=== PATIENT | male | born 1930 | race Caucasian/White ===

== ENCOUNTER 2016-05-28 17:24 | Emergency (ER) | payer MEDICARE, BC ==
[2016-05-28 17:38] VITALS: BP 166/91
--- NOTE | 2016-05-28 18:07 | EDM.PDOC ---
ED HPI GENERAL MEDICAL PROBLEM - General Chief Complaint: Neuro Symptoms/Deficits Stated Complaint: FELL Time Seen by Provider: 05/28/16 17:50 Source of Information: Reports: Patient, Family History Limitations: Reports: No limitations - History of Present Illness INITIAL COMMENTS - FREE TEXT/NARRATIVE: 85-year-old male in his usual health he states arrived home from shopping with his . She came home and a separate car and found him coming out of the bathroom tending to some facial and head injuries. He had a abrasion and hematoma on his forehead, and abrasion on his nose and bleeding from his left ear. He is unsure what happened, does not remember falling. They do have ice in front of their door which is slippery. He broke his left hearing aid. He complains of no headache, no visual disturbance, denies neck pain, chest or abdominal pain or extremity pain. He is repetitive with questioning about what happened. He is on Plavix and Motrin. Onset: today Location: Reports: head, face Severity: moderate Associated Symptoms: Reports: denies other symptoms Head Pain Score (Numeric/FACES): 2 - Related Data Allergies Allergy/AdvReac Type Severity Reaction Status Date / Time Penicillins Allergy Unknown Other Verified 05/28/16 17:38 pneumococcal 23-valent Allergy Headache Verified 05/28/16 17:38 polysacchari [From Pneumovax 23] Home Meds: Home Meds Ascorbic Acid 500 mg PO DAILY 01/22/13 [History] Clopidogrel [Plavix] 75 mg PO DAILY 01/22/13 [History] HCTZ/Triamterene [Maxzide 25-37.5 MG] 0.5 tab PO DAILY 01/22/13 [History] Metoprolol Tartrate [Lopressor] 50 mg PO BID 01/22/13 [History] Pravastatin Sodium 20 mg PO .4XWEEK 01/22/13 [History] Vitamin B Complex [B Complex] 1 each PO DAILY 01/22/13 [History] Vitamin E 400 unit PO DAILY 01/22/13 [History] metFORMIN HCl [Metformin HCl] 500 mg PO DAILY 01/22/13 [History] Pantoprazole [Protonix] 40 mg PO DAILY 01/01/14 [History] metFORMIN HCl [Metformin HCl] 750 mg PO DAILY 01/22/14 [History] predniSONE [Prednisone] 3 mg PO DAILY 01/22/14 [History] Social & Family History - Tobacco Use Smoking Status *Q: Never Smoker Years of Tobacco use: 2 Used Tobacco, but Quit: Yes Month Tobacco Last Used: mar Second Hand Smoke Exposure: No - Alcohol Use Days Per Week of Alcohol Use: 0 - Recreational Drug Use Recreational Drug Use: No ED ROS GENERAL - Review of Systems Review Of Systems: See Below Constitutional: Denies: fever, chills HEENT: Reports: Nosebleed (It appears he had a small amount of epistaxis which is resolved), Other (Bleeding from the left ear with tenderness of the ear helix , significant bruising). Denies: Eye pain, Hearing loss Respiratory: Denies: shortness of breath, cough Cardiovascular: Denies: Chest pain GI/Abdominal: Denies: Abdominal pain, Nausea, Vomiting : Reports: no symptoms Musculoskeletal: Denies: neck pain Skin: Reports: bruising (Left ear), other (Abrasion on the nose and left forehead) Neurological: Reports: confusion, other (Some repetitive questioning but he is oriented) Psychiatric: Reports: No symptoms ED EXAM, GENERAL - Physical Exam Exam: See Below Exam Limited By: No limitations General Appearance: alert, no apparent distress Eye Exam: bilateral eye: EOMI Ears: other (Right ear is normal. Left ear has a fairly complete bruise involving the entire left ear with some small abrasions and lacerations near the entry of the canal. The tympanic membrane is normal. There is no significant hematoma or blood collection subcutaneously) Head: other (Moderate hematoma with overlying abrasion on the left forehead. superficial abrasion of the nose) Neck: non-tender Respiratory/Chest: no respiratory distress GI/Abdominal: soft, non tender Extremities: normal inspection Neurological: alert, oriented, memory loss recent events Psychiatric: normal affect, normal mood Course - Vital Signs Last Recorded V/S: Last Vital Signs Temp 98.2 F 05/28/16 17:31 Pulse 81 05/28/16 17:31 Resp 14 05/28/16 17:31 BP 166/91 H 05/28/16 17:31 Pulse Ox 93 L 05/28/16 17:31 - Orders/Labs/Meds Orders: Active Orders 24 hr Category Date Time Status Head wo Cont [CT] Stat Exams 05/28/16 17:57 Taken Max Facial Sinus wo Cont [CT] Stat Exams 05/28/16 17:57 Taken - Re-Assessments/Exams Free Text/Narrative Re-Assessment/Exam: 05/28/16 18:08 No foreign body was seen in the ear canal, the trauma is to the external ear. A CT of the head and facial bones without contrast was obtained. 05/28/16 19:11 CT of the head and facial bones showed no acute findings other than some edema of the left ear. Patient was put on cephalexin 500 mg 3 times daily for the helix hematoma of the left ear, and given 10 hydrocodone to use along with his ibuprofen for pain. I strongly encouraged him to continue with icing took his injuries, and he has a recheck tomorrow with his primary care. Departure - Departure Time of Disposition: 19:25 Disposition: Home, Self-Care 01 Condition: good Clinical Impression: Mild concussion Qualifiers: Encounter type: initial encounter Facial abrasion Qualifiers: Encounter type: initial encounter Qualified Code(s): S00.81XA - Abrasion of other part of head, initial encounter Hematoma of ear, left Qualifiers: Encounter type: initial encounter Qualified Code(s): S00.432A - Contusion of left ear, initial encounter Instructions: Concussion, Adult Referrals: Rudolph Garza MD [Primary Care Provider] - Forms: ED Department Discharge Care Plan Goals: Ice to sore or swollen areas will help over the next 48 hours. Take antibiotic 3 times a day to avoid infection developing in the year. Recheck tomorrow with her primary care provider as scheduled. Add hydrocodone for pain if needed, as directed. - My Orders Last 24 Hours: My Active Orders 05/28/16 17:57 Head wo Cont [CT] Stat Max Facial Sinus wo Cont [CT] Stat - Assessment/Plan Last 24 Hours: My Active Orders 05/28/16 17:57 Head wo Cont [CT] Stat Max Facial Sinus wo Cont [CT] Stat
== END 2016-05-28 19:25 | disposition home or self-care (01) ==
LOC: JP.ED 17:24
DX: S06.0X0A Concussion without loss of consciousness, initial encounter (principal); S00.432A Contusion of left ear, initial encounter; X58.XXXA Exposure to other specified factors, initial encounter
CPT/HCPCS: 70450; 70486; 99284; 99284-25

== ENCOUNTER 2017-01-15 04:03 | Inpatient (IN) | payer MEDICARE, BC ==
[2017-01-15] MEDS ORDERED: Ibuprofen 600 MG Tab PO ONE (04:39)
[2017-01-15] MEDS ORDERED: cefTRIAXone 1 GM Vial IV SCH (04:45)
[2017-01-15] MEDS ORDERED: Lactated Ringers 1,000 ML IV SCH ×2 (04:45→06:45)
[2017-01-15] MEDS ORDERED: Sodium Chloride 0.9% 10 ML Syringe FLUSH PRN (04:47)
--- NOTE | 2017-01-15 04:50 | EDM.PDOC ---
ED HPI GENERAL MEDICAL PROBLEM - General Chief Complaint: Genitourinary Problem Stated Complaint: MED[facility] Time Seen by Provider: 01/15/17 04:36 Source of Information: Reports: Patient, EMS, Family, RN Notes Reviewed History Limitations: Reports: No Limitations - History of Present Illness INITIAL COMMENTS - FREE TEXT/NARRATIVE: 86-year-old gentleman presents emergency department day via EMS services for complaint of fever, he has known history of underlying dementia diabetes mellitus type 2 over the last couple days family has noticed that he's been bit more confused started having the chills today also has been complaining of urinary frequency and dysuria. - Related Data Allergies Allergy/AdvReac Type Severity Reaction Status Date / Time Penicillins Allergy Unknown Other Verified 01/15/17 04:34 pneumococcal 23-valent Allergy Headache Verified 01/15/17 04:34 polysacchari [From Pneumovax 23] Home Meds: Home Meds Ascorbic Acid 500 mg PO DAILY 01/22/13 [History] Clopidogrel [Plavix] 75 mg PO DAILY 01/22/13 [History] HCTZ/Triamterene [Maxzide 25-37.5 MG] 0.5 tab PO DAILY 01/22/13 [History] Metoprolol Tartrate [Lopressor] 50 mg PO BID 01/22/13 [History] Pravastatin Sodium 20 mg PO .4XWEEK 01/22/13 [History] Vitamin B Complex [B Complex] 1 each PO DAILY 01/22/13 [History] Vitamin E 400 unit PO DAILY 01/22/13 [History] Pantoprazole [Protonix] 40 mg PO DAILY 01/01/14 [History] metFORMIN HCl [Metformin HCl] 500 mg PO BID 01/22/14 [History] predniSONE [Prednisone] 5 mg PO DAILY 01/22/14 [History] metFORMIN [Glucophage] 250 mg PO ACLUNCH 01/15/17 [History] Past Medical History HEENT History: Reports: Hard of Hearing, Impaired Vision Cardiovascular History: Reports: Hypertension Gastrointestinal History: Reports: GERD Genitourinary History: Reports: Renal Calculus Musculoskeletal History: Reports: Back Pain, Chronic, Other (See Below) Other Musculoskeletal History: polymyalgia rheumatica Neurological History: Reports: Other (See Below) Other Neuro History: short term memory loss Endocrine/Metabolic History: Reports: Diabetes, Type II Oncologic (Cancer) History: Reports: Other (See Below) 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 - Past Surgical History GI Surgical History: Reports: Appendectomy, Hernia Repair/Other Social & Family History - Tobacco Use Smoking Status *Q: Never Smoker Years of Tobacco use: 2 Used Tobacco, but Quit: Yes Month Tobacco Last Used: mar Second Hand Smoke Exposure: No - Alcohol Use Days Per Week of Alcohol Use: 0 - Recreational Drug Use Recreational Drug Use: No ED ROS GENERAL - Review of Systems Review Of Systems: See Below Constitutional: Reports: Fever, Chills, Weakness HEENT: Reports: No Symptoms Respiratory: Reports: No Symptoms Cardiovascular: Reports: No Symptoms GI/Abdominal: Reports: No Symptoms : Reports: Dysuria, Frequency Musculoskeletal: Reports: No Symptoms Skin: Reports: No Symptoms Neurological: Reports: No Symptoms ED EXAM, GI/ABD - Physical Exam Exam: See Below Text/Narrative:: General: Elderly gentleman, not in any distress, alert and oriented x3 HEENT: head is atraumatic normocephalic, eyes pupils equal round reactive to light, sclera clear no conjunctivitis appreciated. Ears blocked by cerumen bilaterally canals are clear. Nose no septal deviation, nares are clear, no blood present. Mouth mucosa is dry and pink no erythema or exudate noted in soft palate, tongue is midline uvula is midline, dentures in place. Neck: Supple no thyromegaly no tracheal deviation. Nodes: Cervical nodes subclavicular nodes nontender no palpable lymphadenopathy noted. Lungs: clear to auscultation bilaterally with symmetrical respirations, no adventitious noise appreciated. CV: Regular rate and rhythm S1 and S2 appreciated no murmurs rubs or gallops noted. Abdomen: Soft, nontender, no palpable masses or organomegaly appreciated, no distention no guarding bowel sounds are present, . Neuro: Cranial nerves II through XII grossly intact Skin: Warm and dry, intact Extremities: No lower extremity edema appreciated, pedal pulse is +2. Course - Vital Signs Last Recorded V/S: Last Vital Signs Temp 101.7 F H 01/15/17 05:12 Pulse 94 01/15/17 05:12 Resp 24 H 01/15/17 05:12 BP 134/70 01/15/17 05:12 Pulse Ox 92 L 01/15/17 05:12 - Orders/Labs/Meds Orders: Active Orders 24 hr Category Date Time Status Peripheral IV Care [RC] . DIRECTED Care 01/15/17 04:47 Active Vital Signs [RC] Q1H Care 01/15/17 04:36 Active Chest 1V Frontal [CR] Urgent Exams 01/15/17 04:40 Taken CULTURE BLOOD [BC] Urgent Lab 01/15/17 04:44 Received CULTURE BLOOD [BC] Urgent Lab 01/15/17 04:44 Received CULTURE URINE [RM] Stat Lab 01/15/17 05:02 Received Lactated Ringers [Ringers, Lactated] 1,000 ml Med 01/15/17 04:45 Active IV ASDIRECTED Sodium Chloride 0.9% [Normal Saline] 100 ml Med 01/15/17 05:00 Active IV ASDIRECTED Sodium Chloride 0.9% [Saline Flush] Med 01/15/17 04:47 Active 10 ml FLUSH ASDIRECTED PRN cefTRIAXone [Rocephin] Med 01/15/17 04:45 Active 2 gm IV Q24H Blood Culture x2 Reflex Set [OM.PC] Urgent Oth 01/15/17 04:36 Ordered Peripheral IV Insertion Adult [OM.PC] Urgent Oth 01/15/17 04:47 Ordered Medication Orders Ceftriaxone Sodium (Rocephin) 2 gm IV Q24H VERONICA Last Admin: 01/15/17 05:09 Dose: 2 gm Lactated Ringer's (Ringers, Lactated) 1,000 mls @ 500 mls/hr IV ASDIRECTED VERONICA Last Admin: 01/15/17 04:43 Dose: 500 mls/hr Sodium Chloride (Normal Saline) 100 mls @ 200 mls/hr IV ASDIRECTED [facility] Last Admin: 01/15/17 05:09 Dose: 200 mls/hr Sodium Chloride (Saline Flush) 10 ml FLUSH ASDIRECTED PRN PRN Reason: Keep Vein Open Last Admin: 01/15/17 05:11 Dose: 10 ml Labs: Laboratory Tests 01/15/17 01/15/17 01/15/17 Range/Units 04:10 04:44 04:44 WBC 14.0 H (4.5-11.0) K/uL RBC 4.20 L (4.30-5.90) M/uL Hgb 12.7 (12.0-15.0) g/dL Hct 38.4 L (40.0-54.0) % MCV 91 (80-98) fL MCH 30 (27-31) pg MCHC 33 (32-36) % Plt Count 160 (150-400) K/uL Neut % (Auto) 93 H (36-66) % Lymph % (Auto) 1 L (24-44) % [place] % (Auto) 6 (2-6) % Eos % (Auto) 0 L (2-4) % Baso % (Auto) 0 (0-1) % Sodium 136 L (140-148) mmol/L Potassium 3.8 (3.6-5.2) mmol/L Chloride 102 (100-108) mmol/L Carbon Dioxide 24 (21-32) mmol/L Anion Gap 13.8 (5.0-14.0) mmol/L BUN 31 H (7-18) mg/dL Creatinine 1.4 H (0.8-1.3) mg/dL Est Cr Clr Drug Dosing 34.10 mL/min Estimated GFR (MDRD) 48 L (>60) Glucose 254 H (74-106) mg/dL Lactic Acid (0.4-2.0) mmol/L Calcium 9.1 (8.5-10.1) mg/dL Phosphorus (2.5-4.9) mg/dL Magnesium (1.8-2.4) mg/dL Total Bilirubin 0.8 (0.2-1.0) mg/dL AST 22 (15-37) U/L ALT 31 (12-78) U/L Alkaline Phosphatase 46 (46-116) U/L C-Reactive Protein 7.12 H (0.0-0.3) mg/dL Total Protein 6.3 L (6.4-8.2) g/dL Albumin 3.0 L (3.4-5.0) g/dL Globulin 3.3 (2.3-3.5) g/dL Albumin/Globulin Ratio 0.9 L (1.2-2.2) Lipase (73-393) U/L Urine Color Yellow Urine Appearance Cloudy Urine pH 5.0 (4.5-8.0) Ur Specific [place] 1.015 (1.008-1.030) Urine Protein 100 H (NEGATIVE) mg/dL Urine Glucose (UA) 250 H (NEGATIVE) mg/dL Urine Ketones 15 H (NEGATIVE) mg/dL Urine Occult Blood Large (NEGATIVE) Urine Nitrite Positive H (NEGAITVE) Urine Bilirubin Negative (NEGATIVE) Urine Urobilinogen Normal (NORMAL) mg/dL Ur Leukocyte Esterase Moderate (NEGATIVE) Urine RBC 20-30 H (0-5) Urine WBC 10-20 H (0-5) Ur Epithelial Cells Not seen Amorphous Sediment Not seen Urine Bacteria Many Urine Mucus Not seen 01/15/17 01/15/17 Range/Units 04:44 04:44 WBC (4.5-11.0) K/uL RBC (4.30-5.90) M/uL Hgb (12.0-15.0) g/dL Hct (40.0-54.0) % MCV (80-98) fL MCH (27-31) pg MCHC (32-36) % Plt Count (150-400) K/uL Neut % (Auto) (36-66) % Lymph % (Auto) (24-44) % [place] % (Auto) (2-6) % Eos % (Auto) (2-4) % Baso % (Auto) (0-1) % Sodium (140-148) mmol/L Potassium (3.6-5.2) mmol/L Chloride (100-108) mmol/L Carbon Dioxide (21-32) mmol/L Anion Gap (5.0-14.0) mmol/L BUN (7-18) mg/dL Creatinine (0.8-1.3) mg/dL Est Cr Clr Drug Dosing mL/min Estimated GFR (MDRD) (>60) Glucose (74-106) mg/dL Lactic Acid 2.2 H (0.4-2.0) mmol/L Calcium (8.5-10.1) mg/dL Phosphorus 2.5 (2.5-4.9) mg/dL Magnesium 1.3 L (1.8-2.4) mg/dL Total Bilirubin (0.2-1.0) mg/dL AST (15-37) U/L ALT (12-78) U/L Alkaline Phosphatase (46-116) U/L C-Reactive Protein (0.0-0.3) mg/dL Total Protein (6.4-8.2) g/dL Albumin (3.4-5.0) g/dL Globulin (2.3-3.5) g/dL Albumin/Globulin Ratio (1.2-2.2) Lipase 135 (73-393) U/L Urine Color Urine Appearance Urine pH (4.5-8.0) Ur Specific [place] (1.008-1.030) Urine Protein (NEGATIVE) mg/dL Urine Glucose (UA) (NEGATIVE) mg/dL Urine Ketones (NEGATIVE) mg/dL Urine Occult Blood (NEGATIVE) Urine Nitrite (NEGAITVE) Urine Bilirubin (NEGATIVE) Urine Urobilinogen (NORMAL) mg/dL Ur Leukocyte Esterase (NEGATIVE) Urine RBC (0-5) Urine WBC (0-5) Ur Epithelial Cells Amorphous Sediment Urine Bacteria Urine Mucus Meds: Medications Generic Name Dose Route Start Last Admin Trade Name Freq PRN Reason Stop Dose Admin Ceftriaxone Sodium 2 gm 01/15/17 04:45 01/15/17 05:09 Rocephin IV 2 gm Q24H VERONICA Administration Lactated Ringer's 1,000 mls @ 500 mls/hr 01/15/17 04:45 01/15/17 04:43 Ringers, Lactated IV 500 mls/hr ASDIRECTED VERONICA Administration Sodium Chloride 100 mls @ 200 mls/hr 01/15/17 05:00 01/15/17 05:09 Normal Saline IV 200 mls/hr ASDIRECTED VERONICA Administration Sodium Chloride 10 ml 01/15/17 04:47 01/15/17 05:11 Saline Flush FLUSH 10 ml ASDIRECTED PRN Administration Keep Vein Open Discontinued Medications Generic Name Dose Route Start Last Admin Trade Name Freq PRN Reason Stop Dose Admin Ibuprofen 600 mg 01/15/17 04:39 01/15/17 04:47 Motrin PO 01/15/17 04:40 600 mg ONETIME ONE Administration Departure - Departure Time of Disposition: 06:06 Disposition: Admitted As Inpatient 64 Condition: Fair Clinical Impression: Sepsis due to urinary tract infection - Discharge Information Referrals: PCP,None [Primary Care Provider] - Forms: ED Department Discharge - My Orders Last 24 Hours: My Active Orders 01/15/17 04:36 Vital Signs [RC] Q1H Blood Culture x2 Reflex Set [OM.PC] Urgent 01/15/17 04:40 Chest 1V Frontal [CR] Urgent 01/15/17 04:44 CULTURE BLOOD [BC] Urgent CULTURE BLOOD [BC] Urgent 01/15/17 04:45 Lactated Ringers [Ringers, Lactated] 1,000 ml IV ASDIRECTED cefTRIAXone [Rocephin] 2 gm IV Q24H 01/15/17 04:47 Peripheral IV Care [RC] . DIRECTED Sodium Chloride 0.9% [Saline Flush] 10 ml FLUSH ASDIRECTED PRN Peripheral IV Insertion Adult [OM.PC] Urgent 01/15/17 05:00 Sodium Chloride 0.9% [Normal Saline] 100 ml IV ASDIRECTED 01/15/17 05:02 CULTURE URINE [RM] Stat - Assessment/Plan Last 24 Hours: My Active Orders 01/15/17 04:36 Vital Signs [RC] Q1H Blood Culture x2 Reflex Set [OM.PC] Urgent 01/15/17 04:40 Chest 1V Frontal [CR] Urgent 01/15/17 04:44 CULTURE BLOOD [BC] Urgent CULTURE BLOOD [BC] Urgent 01/15/17 04:45 Lactated Ringers [Ringers, Lactated] 1,000 ml IV ASDIRECTED cefTRIAXone [Rocephin] 2 gm IV Q24H 01/15/17 04:47 Peripheral IV Care [RC] . DIRECTED Sodium Chloride 0.9% [Saline Flush] 10 ml FLUSH ASDIRECTED PRN Peripheral IV Insertion Adult [OM.PC] Urgent 01/15/17 05:00 Sodium Chloride 0.9% [Normal Saline] 100 ml IV ASDIRECTED 01/15/17 05:02 CULTURE URINE [RM] Stat Plan: Assessment Acuity = acute Site and laterality = sepsis secondary to urinary source complicated patient with known history of diabetes mellitus type 2, new onset dementia and hypertension Etiology = probable bacterial cause Manifestations = fever, hypoxic, Location of injury = Home Lab values = WBC elevated at 14.0 consistent leukocytosis creatinine elevated 1.4 consistent with acute renal failure stage GIII a lactic acid elevated at 2.2 consistent lactic acidosis magnesium low at 1.3 consistent hypomagnesemia glucose elevated at 254 consistent with hyperglycemia CRP elevated 7.12 albumin low at 3.0 consistent hypoalbuminemia urinalysis reveals 100 of protein consistent proteinuria glucose at 250 consistent glucose urea ketones at 15 consistent ketonuria positive for nitrates WBC 20-30 consistent with hematuria WBCs 10-20 consistent with pyuria cultures pending, chest x-ray shows no acute process I did review films myself I cannot appreciate any acute process, the official read from radiology is pending, EKG done by EMS services in route shows a left bundle branch block with sinus rhythm similar to prior EKGs from this year, blood cultures are pending Plan Discussed the case with hospitalist continuous miner operator he agreed to come and evaluate the patient in the emergency department for admission . This note was dictated using Wattpad voice recognition software please call with any questions.
[2017-01-15] MEDS ORDERED: Sodium Chloride 0.9% 100 ML IV SCH (05:00)
--- NOTE | 2017-01-15 07:48 | PCM.HP ---
H&P History of Present Illness - General Date of Service: 01/15/17 Admit Problem/Dx: Admission Diagnosis/Problem Admission Diagnosis/Problem Acute cystitis Source of Information: Family. No: Patient History Limitations: Reports: Altered Mental Status - History of Present Illness Initial Comments - Free Text/Narative: Dann presented to the emergency room with rigors and weakness. He is unable to provide any history at this time due to obtundation and history is gathered from his and from emergency room personnel. She reports a 2 to three-day history of slowly progressive weakness and decreased appetite. He seemed a little more confused than usual and had episodes of incontinence at night. Last night she noted that he was shaking violently and was concerned he may be having a seizure. An ambulance was summoned and he was brought for evaluation in the emergency room. Workup in the emergency room has revealed evidence for a urinary tract infection as well as sepsis syndrome. He has received antibiotics and a 30 mL/kg fluid bolus. Cultures have been collected and he will be admitted for further management. - Related Data Allergies/Adverse Reactions: Allergies Allergy/AdvReac Type Severity Reaction Status Date / Time Penicillins Allergy Unknown Other Verified 01/15/17 04:34 pneumococcal 23-valent Allergy Headache Verified 01/15/17 04:34 polysacchari [From Pneumovax 23] Home Medications: Home Meds Ascorbic Acid 500 mg PO DAILY 01/22/13 [History] Clopidogrel [Plavix] 75 mg PO DAILY 01/22/13 [History] HCTZ/Triamterene [Maxzide 25-37.5 MG] 0.5 tab PO DAILY 01/22/13 [History] Metoprolol Tartrate [Lopressor] 50 mg PO BID 01/22/13 [History] Pravastatin Sodium 20 mg PO .4XWEEK 01/22/13 [History] Vitamin B Complex [B Complex] 1 each PO DAILY 01/22/13 [History] Vitamin E 400 unit PO DAILY 01/22/13 [History] Pantoprazole [Protonix] 40 mg PO DAILY 01/01/14 [History] metFORMIN HCl [Metformin HCl] 500 mg PO BID 01/22/14 [History] predniSONE [Prednisone] 5 mg PO DAILY 01/22/14 [History] metFORMIN [Glucophage] 250 mg PO ACLUNCH 01/15/17 [History] Past Medical History HEENT History: Reports: Hard of Hearing, Impaired Vision Cardiovascular History: Reports: Hypertension Gastrointestinal History: Reports: GERD Genitourinary History: Reports: Renal Calculus Musculoskeletal History: Reports: Back Pain, Chronic, Other (See Below) Other Musculoskeletal History: polymyalgia rheumatica Neurological History: Reports: Other (See Below) Other Neuro History: short term memory loss Endocrine/Metabolic History: Reports: Diabetes, Type II Oncologic (Cancer) History: Reports: Other (See Below) 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 - Past Surgical History GI Surgical History: Reports: Appendectomy, Hernia Repair/Other Social & Family History - Family History Family Medical History: Unobtainable (Patient obtunded) - Tobacco Use Smoking Status *Q: Never Smoker Years of Tobacco use: 2 Used Tobacco, but Quit: Yes Month Tobacco Last Used: mar Second Hand Smoke Exposure: No - Alcohol Use Days Per Week of Alcohol Use: 0 - Recreational Drug Use Recreational Drug Use: No H&P Review of Systems - Review of Systems: Review Of Systems: Unable To Obtain (Patient is obtunded) Exam - Exam Exam: See Below - Vital Signs Vital Signs: Last Vital Signs Temp 36.8 C 01/15/17 06:00 Pulse 93 01/15/17 06:00 Resp 20 01/15/17 06:00 BP 133/60 01/15/17 06:00 Pulse Ox 95 01/15/17 06:00 Weight: 73.482 kg - Exam Quality Assessment: Supplemental Oxygen General: Obtunded. No: Alert, Cooperative, Mild Distress HEENT: Conjunctiva Clear. No: Mucosa Moist & [place] (dry), Scleral Icterus Neck: Supple, Trachea Midline. No: Lymphadenopathy Lungs: Clear to Auscultation, Normal Respiratory Effort Cardiovascular: Regular Rhythm, Tachycardia. No: Systolic Murmur GI/Abdominal Exam: Normal Bowel Sounds, Soft, Non-Tender, No Distention Extremities: No Pedal Edema. No: Increased Warmth Peripheral Pulses: 2+: Dorsalis Pedis (L), Dorsalis Pedis (R) Skin: Warm, Dry. No: Rash Neuro Extensive - Mental Status: Slow Response to Commands. No: Alert, Oriented x3 Neuro Extensive - Motor, Sensory, Reflexes: No: Dysarthria, Abnormal Motor, Tremor Psychiatric: No: Alert, Agitated - Patient Data Lab Results Last 24 hrs: Laboratory Results - last 24 hr 01/15/17 01/15/17 01/15/17 Range/Units 04:10 04:44 04:44 WBC 14.0 H (4.5-11.0) K/uL RBC 4.20 L (4.30-5.90) M/uL Hgb 12.7 (12.0-15.0) g/dL Hct 38.4 L (40.0-54.0) % MCV 91 (80-98) fL MCH 30 (27-31) pg MCHC 33 (32-36) % Plt Count 160 (150-400) K/uL Neut % (Auto) 93 H (36-66) % Lymph % (Auto) 1 L (24-44) % Josephine % (Auto) 6 (2-6) % Eos % (Auto) 0 L (2-4) % Baso % (Auto) 0 (0-1) % Sodium 136 L (140-148) mmol/L Potassium 3.8 (3.6-5.2) mmol/L Chloride 102 (100-108) mmol/L Carbon Dioxide 24 (21-32) mmol/L Anion Gap 13.8 (5.0-14.0) mmol/L BUN 31 H (7-18) mg/dL Creatinine 1.4 H (0.8-1.3) mg/dL Est Cr Clr Drug Dosing 34.10 mL/min Estimated GFR (MDRD) 48 L (>60) Glucose 254 H (74-106) mg/dL Lactic Acid (0.4-2.0) mmol/L Calcium 9.1 (8.5-10.1) mg/dL Phosphorus (2.5-4.9) mg/dL Magnesium (1.8-2.4) mg/dL Total Bilirubin 0.8 (0.2-1.0) mg/dL AST 22 (15-37) U/L ALT 31 (12-78) U/L Alkaline Phosphatase 46 (46-116) U/L C-Reactive Protein 7.12 H (0.0-0.3) mg/dL Total Protein 6.3 L (6.4-8.2) g/dL Albumin 3.0 L (3.4-5.0) g/dL Globulin 3.3 (2.3-3.5) g/dL Albumin/Globulin Ratio 0.9 L (1.2-2.2) Lipase (73-393) U/L Urine Color Yellow Urine Appearance Cloudy Urine pH 5.0 (4.5-8.0) Ur Specific [place] 1.015 (1.008-1.030) Urine Protein 100 H (NEGATIVE) mg/dL Urine Glucose (UA) 250 H (NEGATIVE) mg/dL Urine Ketones 15 H (NEGATIVE) mg/dL Urine Occult Blood Large (NEGATIVE) Urine Nitrite Positive H (NEGAITVE) Urine Bilirubin Negative (NEGATIVE) Urine Urobilinogen Normal (NORMAL) mg/dL Ur Leukocyte Esterase Moderate (NEGATIVE) Urine RBC 20-30 H (0-5) Urine WBC 10-20 H (0-5) Ur Epithelial Cells Not seen Amorphous Sediment Not seen Urine Bacteria Many Urine Mucus Not seen 01/15/17 01/15/17 Range/Units 04:44 04:44 WBC (4.5-11.0) K/uL RBC (4.30-5.90) M/uL Hgb (12.0-15.0) g/dL Hct (40.0-54.0) % MCV (80-98) fL MCH (27-31) pg MCHC (32-36) % Plt Count (150-400) K/uL Neut % (Auto) (36-66) % Lymph % (Auto) (24-44) % Josephine % (Auto) (2-6) % Eos % (Auto) (2-4) % Baso % (Auto) (0-1) % Sodium (140-148) mmol/L Potassium (3.6-5.2) mmol/L Chloride (100-108) mmol/L Carbon Dioxide (21-32) mmol/L Anion Gap (5.0-14.0) mmol/L BUN (7-18) mg/dL Creatinine (0.8-1.3) mg/dL Est Cr Clr Drug Dosing mL/min Estimated GFR (MDRD) (>60) Glucose (74-106) mg/dL Lactic Acid 2.2 H (0.4-2.0) mmol/L Calcium (8.5-10.1) mg/dL Phosphorus 2.5 (2.5-4.9) mg/dL Magnesium 1.3 L (1.8-2.4) mg/dL Total Bilirubin (0.2-1.0) mg/dL AST (15-37) U/L ALT (12-78) U/L Alkaline Phosphatase (46-116) U/L C-Reactive Protein (0.0-0.3) mg/dL Total Protein (6.4-8.2) g/dL Albumin (3.4-5.0) g/dL Globulin (2.3-3.5) g/dL Albumin/Globulin Ratio (1.2-2.2) Lipase 135 (73-393) U/L Urine Color Urine Appearance Urine pH (4.5-8.0) Ur Specific [place] (1.008-1.030) Urine Protein (NEGATIVE) mg/dL Urine Glucose (UA) (NEGATIVE) mg/dL Urine Ketones (NEGATIVE) mg/dL Urine Occult Blood (NEGATIVE) Urine Nitrite (NEGAITVE) Urine Bilirubin (NEGATIVE) Urine Urobilinogen (NORMAL) mg/dL Ur Leukocyte Esterase (NEGATIVE) Urine RBC (0-5) Urine WBC (0-5) Ur Epithelial Cells Amorphous Sediment Urine Bacteria Urine Mucus Result Diagrams: 01/15/17 04:44 01/15/17 04:44 Imaging Impressions Last 24 hrs: Chest x-ray - images personally reviewed - there is no evidence for mass, infiltrate or effusion. Heart size is normal. *Q Meaningful Use (ADM) - VTE *Q VTE Criteria *Q: - VTE Risk Assess *Q Each Risk Factor Represents 1 Point: Sepsis Total Score 1 Point Risk Factors: 1 Each Risk Factor Represents 2 Points: None Total Score 2 Point Risk Factors: 0 Each Risk Factor Represents 3 Points: Age 75 Years or Greater Total Score 3 Point Risk Factors: 3 Each Risk Factor Represents 5 Points: None Total Score 5 Point Risk Factors: 0 Venous Thromboembolism Risk Factor Score *Q: 4 - Stroke *Q Stroke Criteria *Q: - AMI *Q AMI Criteria *Q: Problem List Initiated/Reviewed/Updated: Yes Orders Last 24hrs: Active Orders 24 hr Category Date Time Status Patient Status Manage Transfer [TRANSFER] Routine ADT 01/15/17 07:40 Ordered Peripheral IV Care [RC] . DIRECTED Care 01/15/17 04:47 Active Vital Signs [RC] Q1H Care 01/15/17 04:36 Active Chest 1V Frontal [CR] Urgent Exams 01/15/17 04:40 Taken CULTURE BLOOD [BC] Urgent Lab 01/15/17 04:44 Received CULTURE BLOOD [BC] Urgent Lab 01/15/17 04:44 Received CULTURE URINE [RM] Stat Lab 01/15/17 05:02 Received Lactated Ringers [Ringers, Lactated] 1,000 ml Med 01/15/17 04:45 Active IV ASDIRECTED Lactated Ringers [Ringers, Lactated] 1,000 ml Med 01/15/17 06:45 Active IV ASDIRECTED Sodium Chloride 0.9% [Normal Saline] 100 ml Med 01/15/17 05:00 Active IV ASDIRECTED Sodium Chloride 0.9% [Saline Flush] Med 01/15/17 04:47 Active 10 ml FLUSH ASDIRECTED PRN cefTRIAXone [Rocephin] Med 01/15/17 04:45 Active 2 gm IV Q24H Blood Culture x2 Reflex Set [OM.PC] Urgent Oth 01/15/17 04:36 Ordered Peripheral IV Insertion Adult [OM.PC] Urgent Oth 01/15/17 04:47 Ordered Resuscitation Status Routine Resus Stat 01/15/17 07:41 Ordered Medication Orders Ceftriaxone Sodium (Rocephin) 2 gm IV Q24H [facility] Last Admin: 01/15/17 05:09 Dose: 2 gm Lactated Ringer's (Ringers, Lactated) 1,000 mls @ 500 mls/hr IV ASDIRECTED [facility] Last Admin: 01/15/17 04:43 Dose: 500 mls/hr Sodium Chloride (Normal Saline) 100 mls @ 200 mls/hr IV ASDIRECTED [facility] Last Admin: 01/15/17 05:09 Dose: 200 mls/hr Lactated Ringer's (Ringers, Lactated) 1,000 mls @ 500 mls/hr IV ASDIRECTED [facility] Last Admin: 01/15/17 06:45 Dose: 500 mls/hr Sodium Chloride (Saline Flush) 10 ml FLUSH ASDIRECTED PRN PRN Reason: Keep Vein Open Last Admin: 01/15/17 05:11 Dose: 10 ml Assessment/Plan Comment:: ASSESSMENT AND PLAN - Acute cystitis with sepsis syndrome - urine strongly suggestive of infection and evidence for sepsis including tachycardia, tachypnea, confusion and elevated lactic acid level. Vital signs stabilizing with treatment provided so far in the emergency room. He has received antibiotics and a fluid bolus. Cultures are pending. -Continue ceftriaxone -Continue IV fluids -Follow-up blood and urine cultures -Repeat lactic acid Stage III chronic kidney disease - mild elevation in creatinine from baseline but does not meet criteria for acute kidney injury. -Hydration as above Mild to moderate dementia - obtunded at this time secondary to infection. No behavior issues at this time. -Melatonin at bedtime -Consider low-dose Haldol if behavior issues Essential hypertension - blood pressure on the low side and only metoprolol will be continued at this time. Type 2 diabetes mellitus - on metformin as an outpatient. This will be held with mild elevation in creatinine which should be able to restart of the near future. -Low-dose sliding scale -Restart metformin in one or 2 days Maintenance issues - - DVT prophylaxis - enoxaparin - GI prophylaxis - PPI - Nutrition - regular diet - Kaur catheter - not indicated CODE STATUS - DNR/DNI Admission justification - This patient will be admitted for inpatient services and is medically appropriate meeting medical necessity for inpatient admission as outlined in my documentation. I reasonably expect the patient will require inpatient services that span a period time over 2 midnights. I reasonably expect this patient to be discharged or transferred within 96 hours after admission to the [facility]. Disposition - anticipate discharge to home versus [facility] after the hospital stay. Primary care physician - Dr. Greg Juarez M.D.
[2017-01-15] MEDS ORDERED: Acetaminophen 325 MG Tab PO PRN (08:40)
[2017-01-15] MEDS ORDERED: Albuterol 0.083% 2.5 MG/3 ML Neb Soln NEB PRN (08:40)
[2017-01-15] MEDS ORDERED: Polyethylene Glycol 3350 Powder 17 GM Packet PO PRN (08:40)
[2017-01-15] MEDS ORDERED: Ibuprofen 400 MG Tab PO PRN (08:40)
[2017-01-15] MEDS ORDERED: Ondansetron 4 MG Tab.DIS PO PRN (08:40)
[2017-01-15] MEDS: Enoxaparin 40 MG/0.4 ML Syringe SUBCUT SCH (09:27)
[2017-01-15] MEDS: Clopidogrel 75 MG Tab PO SCH (09:27)
[2017-01-15] MEDS: Metoprolol Tartrate 50 MG Tab PO SCH ×2 (09:28→21:23)
[2017-01-15] MEDS: Pantoprazole 40 MG Tab.CR PO SCH (09:28)
[2017-01-15] MEDS: predniSONE 5 MG Tab PO SCH (09:28)
--- NOTE | 2017-01-15 09:41 | CR ---
Chest 1V Frontal INDICATION: hypoxic FINDINGS: Comparison 09/18/2010. Elevation right hemidiaphragm. Stable mild cardiac enlargement. Shall ow inspiration. AP portable chest x-ray otherwise negative.
[2017-01-15] MEDS: Sodium Chloride 0.9% 1,000 ML IV SCH ×2 (11:30→21:31)
[2017-01-15] MEDS: Insulin Aspart 100 Units/ML 3 ML Pen SUBCUT SCH ×3 (12:30→21:28)
[2017-01-15] MEDS ORDERED: FLU Vacc TS 2017-18 (65yr UP)/PF 180 MCG/0.5 ML Syringe IM ONE (14:00)
[2017-01-16] MEDS: cefTRIAXone 2 GM in Sodium Chloride 0.9% 50 ML IV SCH (05:34)
[2017-01-16] MEDS: Sodium Chloride 0.9% 1,000 ML IV SCH (07:42)
[2017-01-16] MEDS: predniSONE 5 MG Tab PO SCH (07:42)
[2017-01-16] MEDS: Pantoprazole 40 MG Tab.CR PO SCH (07:42)
[2017-01-16] MEDS: Clopidogrel 75 MG Tab PO SCH (08:48)
[2017-01-16] MEDS: Enoxaparin 40 MG/0.4 ML Syringe SUBCUT SCH (08:48)
[2017-01-16] MEDS: Metoprolol Tartrate 50 MG Tab PO SCH ×2 (08:48→20:28)
[2017-01-16] MEDS: Insulin Aspart 100 Units/ML 3 ML Pen SUBCUT SCH ×2 (09:09→20:34)
[2017-01-16] MEDS: metFORMIN 500 MG Tab PO SCH ×3 (09:11→16:47)
--- NOTE | 2017-01-16 14:35 | PCM.PN ---
- General Info Date of Service: 01/16/17 Functional Status: Reports: Pain Controlled, Tolerating Diet - Review of Systems General: Reports: Weakness. Denies: Fever Neurological: Reports: Confusion Systems Review Comment:: No acute events overnight. Vital signs have been stable with heart rates normal. Patient reports chronic back pain but no other pain issues. No abdominal pain. No fevers. He is a little bit confused but otherwise seems to be doing well. Appetite has been good. Urine culture is pending. Tolerating current antibiotics. - Patient Data Vitals - Most Recent: Last Vital Signs Temp 36.6 C 01/16/17 11:07 Pulse 76 01/16/17 11:07 Resp 16 01/16/17 11:07 BP 123/73 01/16/17 11:07 Pulse Ox 95 01/16/17 11:07 Weight - Most Recent: 73.482 kg I&O - Last 24 Hours: Intake & Output 01/15/17 01/16/17 01/16/17 22:59 06:59 14:59 Intake Total 567 1772 360 Output Total 400 600 Balance 567 1372 -240 Lab Results Last 24 Hours: Laboratory Results - last 24 hr 01/16/17 01/16/17 Range/Units 05:59 05:59 WBC 12.8 H (4.5-11.0) K/uL RBC 4.02 L (4.30-5.90) M/uL Hgb 12.0 (12.0-15.0) g/dL Hct 37.4 L (40.0-54.0) % MCV 93 (80-98) fL MCH 30 (27-31) pg MCHC 32 (32-36) % Plt Count 174 (150-400) K/uL Sodium 141 (140-148) mmol/L Potassium 3.8 (3.6-5.2) mmol/L Chloride 107 (100-108) mmol/L Carbon Dioxide 27 (21-32) mmol/L Anion Gap 7.0 (5.0-14.0) mmol/L BUN 30 H (7-18) mg/dL Creatinine 1.2 (0.8-1.3) mg/dL Est Cr Clr Drug Dosing 41.32 mL/min Estimated GFR (MDRD) 57 L (>60) Glucose 145 H (74-106) mg/dL Calcium 8.5 (8.5-10.1) mg/dL Med Orders - Current: Current Medications Acetaminophen (Tylenol) 650 mg PO Q4H PRN PRN Reason: Pain (Mild 1-3)/fever Albuterol (Proventil Neb Soln) 2.5 mg NEB Q4H PRN PRN Reason: Shortness Of Breath/wheezing Clopidogrel Bisulfate (Plavix) 75 mg PO DAILY [facility] Last Admin: 01/16/17 08:48 Dose: 75 mg Enoxaparin Sodium (Lovenox) 40 mg SUBCUT DAILY [facility] Last Admin: 01/16/17 08:48 Dose: 40 mg Ceftriaxone Sodium 2 gm/ (Sodium Chloride) 50 mls @ 100 mls/hr IV Q24H [facility] Last Admin: 01/16/17 05:34 Dose: 100 mls/hr Ibuprofen (Motrin) 400 mg PO Q6H PRN PRN Reason: Pain/Fever Insulin Aspart (Novolog) 0 unit SUBCUT ASDIRECTED [facility] PRN Reason: Protocol Last Admin: 01/16/17 09:09 Dose: 1 units Metformin HCl (Glucophage) 500 mg PO BIDMEALS [facility] Last Admin: 01/16/17 09:11 Dose: 500 mg Metformin HCl (Glucophage) 250 mg PO WITHLUNCH [facility] Last Admin: 01/16/17 12:13 Dose: 250 mg Metoprolol Tartrate (Lopressor) 50 mg PO BID [facility] Last Admin: 01/16/17 08:48 Dose: 50 mg Ondansetron HCl (Zofran Odt) 4 mg PO Q6H PRN PRN Reason: Nausea able to take PO Pantoprazole Sodium (Protonix) 40 mg PO DAILY@0730 [facility] Last Admin: 01/16/17 07:42 Dose: 40 mg Polyethylene Glycol (Miralax) 17 gm PO DAILY PRN PRN Reason: Constipation Prednisone (Prednisone) 5 mg PO DAILY@0800 [facility] Last Admin: 01/16/17 07:42 Dose: 5 mg Senna/Docusate Sodium (Senna Plus) 1 tab PO BID PRN PRN Reason: Constipation Sodium Chloride (Saline Flush) 10 ml FLUSH ASDIRECTED PRN PRN Reason: Keep Vein Open Last Admin: 01/15/17 05:11 Dose: 10 ml Triamterene/HCTZ (Maxzide 25-37.5 Mg) 0.5 each PO DAILY [facility] Discontinued Medications Ceftriaxone Sodium (Rocephin) 2 gm IV Q24H [facility] Last Admin: 01/15/17 05:09 Dose: 2 gm Lactated Ringer's (Ringers, Lactated) 1,000 mls @ 500 mls/hr IV ASDIRECTED [facility] Last Admin: 01/15/17 04:43 Dose: 500 mls/hr Sodium Chloride (Normal Saline) 100 mls @ 200 mls/hr IV ASDIRECTED [facility] Last Admin: 01/15/17 05:09 Dose: 200 mls/hr Lactated Ringer's (Ringers, Lactated) 1,000 mls @ 500 mls/hr IV ASDIRECTED [facility] Last Admin: 01/15/17 06:45 Dose: 500 mls/hr Sodium Chloride (Normal Saline) 1,000 mls @ 100 mls/hr IV ASDIRECTED [facility] Last Admin: 01/16/17 07:42 Dose: 100 mls/hr Ibuprofen (Motrin) 600 mg PO ONETIME ONE Stop: 01/15/17 04:40 Last Admin: 01/15/17 04:47 Dose: 600 mg Influenza Virus Vaccine (Pharmacy To Dose - Influenza Vaccine) 1 each IM ONETIME ONE Stop: 01/15/17 13:01 Last Admin: 01/15/17 15:36 Dose: 1 each Influenza Virus Vaccine (Fluzone High-Dose ) 180 mcg IM .ONCE ONE Stop: 01/15/17 14:01 Last Admin: 01/15/17 15:34 Dose: 180 mcg - Exam Quality Assessment: Supplemental Oxygen General: Alert, Cooperative, No Acute Distress. No: Oriented Neck: Supple Lungs: Clear to Auscultation, Normal Respiratory Effort Cardiovascular: Regular Rate, Regular Rhythm GI/Abdominal Exam: Soft, No Distention Extremities: No Pedal Edema. No: Increased Warmth Skin: Warm, Dry Psy/Mental Status: Alert, Normal Affect - Problem List Review Problem List Initiated/Reviewed/Updated: Yes - My Orders Last 24 Hours: My Active Orders 01/16/17 05:00 cefTRIAXone [Rocephin] 2 gm Sodium Chloride 0.9% [Normal Saline] 50 ml IV Q24H 01/16/17 07:41 PT Evaluation and Treatment [CONS] Routine 01/16/17 09:00 HCTZ/Triamterene [Maxzide 25-37.5 MG] 0.5 each PO DAILY metFORMIN [Glucophage] 500 mg PO BIDMEALS 01/16/17 12:00 metFORMIN [Glucophage] 250 mg PO WITHLUNCH 01/16/17 12:13 Convert IV to Saline Lock [OM.PC] Routine 01/16/17 16:30 GLUCOSE POC LAB TO COLLECT [POC] QIDACANDBED 01/16/17 21:00 GLUCOSE POC LAB TO COLLECT [POC] QIDACANDBED 01/17/17 05:00 BASIC METABOLIC PANEL,BMP [CHEM] Timed CBC W/O DIFF,HEMOGRAM [HEME] Timed (1) 01/17/17 07:30 GLUCOSE POC LAB TO COLLECT [POC] QIDACANDBED 01/17/17 11:30 GLUCOSE POC LAB TO COLLECT [POC] QIDACANDBED 01/17/17 16:30 GLUCOSE POC LAB TO COLLECT [POC] QIDACANDBED 01/17/17 21:00 GLUCOSE POC LAB TO COLLECT [POC] QIDACANDBED 01/18/17 07:30 GLUCOSE POC LAB TO COLLECT [POC] QIDACANDBED 01/18/17 11:30 GLUCOSE POC LAB TO COLLECT [POC] QIDACANDBED 01/18/17 16:30 GLUCOSE POC LAB TO COLLECT [POC] QIDACANDBED 01/18/17 21:00 GLUCOSE POC LAB TO COLLECT [POC] QIDACANDBED 01/19/17 07:30 GLUCOSE POC LAB TO COLLECT [POC] QIDACANDBED 01/19/17 11:30 GLUCOSE POC LAB TO COLLECT [POC] QIDACANDBED 01/19/17 16:30 GLUCOSE POC LAB TO COLLECT [POC] QIDACANDBED 01/19/17 21:00 GLUCOSE POC LAB TO COLLECT [POC] QIDACANDBED 01/20/17 07:30 GLUCOSE POC LAB TO COLLECT [POC] QIDACANDBED 01/20/17 11:30 GLUCOSE POC LAB TO COLLECT [POC] QIDACANDBED 01/20/17 16:30 GLUCOSE POC LAB TO COLLECT [POC] QIDACANDBED - Plan Plan:: ASSESSMENT AND PLAN - Acute cystitis with sepsis syndrome - sepsis has resolved. Clinically looks much better today. Urine culture is still pending. Blood cultures are negative so far. -Continue ceftriaxone -Saline lock IV -Follow-up blood and urine cultures -Repeat lactic acid Stage III chronic kidney disease - mild elevation in creatinine from baseline and level has improved since admission. -Encourage oral hydration Mild to moderate dementia - slightly confused but no behavior issues at this time. -Melatonin at bedtime -Consider low-dose Haldol if behavior issues Essential hypertension - blood pressure now rising and usual home medications will be restarted. Type 2 diabetes mellitus - on metformin as an outpatient. This will be restarted today. -Low-dose sliding scale -Restart metformin Maintenance issues - - DVT prophylaxis - enoxaparin - GI prophylaxis - PPI - Nutrition - regular diet Disposition - anticipate discharge to home after the hospital stay. Possibly tomorrow if stable overnight Roddy Juarez M.D.
[2017-01-16] MEDS: Hydrochlorothiazide/Triamterene 25-37.5 Tab PO SCH (15:40)
[2017-01-17] MEDS: cefTRIAXone 2 GM in Sodium Chloride 0.9% 50 ML IV SCH (05:01)
[2017-01-17] MEDS: Pantoprazole 40 MG Tab.CR PO SCH (07:33)
[2017-01-17] MEDS: predniSONE 5 MG Tab PO SCH (07:33)
[2017-01-17] MEDS: metFORMIN 500 MG Tab PO SCH ×3 (07:33→17:39)
[2017-01-17] MEDS: Hydrochlorothiazide/Triamterene 25-37.5 Tab PO SCH (08:49)
[2017-01-17] MEDS: Metoprolol Tartrate 50 MG Tab PO SCH ×2 (08:49→20:21)
[2017-01-17] MEDS: Enoxaparin 40 MG/0.4 ML Syringe SUBCUT SCH (08:50)
[2017-01-17] MEDS: Clopidogrel 75 MG Tab PO SCH (08:50)
[2017-01-17] MEDS ORDERED: Furosemide 40 MG/4 ML VIAL IVPUSH ONE (10:30)
[2017-01-17] MEDS: Insulin Aspart 100 Units/ML 3 ML Pen SUBCUT SCH ×2 (12:13→20:43)
--- NOTE | 2017-01-17 14:51 | PCM.PN ---
- General Info Date of Service: 01/17/17 Functional Status: Reports: Pain Controlled, Tolerating Diet, Ambulating - Review of Systems General: Denies: Fever Systems Review Comment:: No acute events overnight. He did require supplemental oxygen through the night and into the morning. No complaints of shortness of breath, chest pain or cough. He has not had any fever. In general he's feeling better with improving strength and appetite. Urine culture grew out Klebsiella. Mild confusion but this seems to be baseline. - Patient Data Vitals - Most Recent: Last Vital Signs Temp 37 C 01/17/17 11:30 Pulse 99 01/17/17 11:30 Resp 16 01/17/17 11:30 BP 121/68 01/17/17 11:30 Pulse Ox 94 L 01/17/17 11:30 Weight - Most Recent: 73.482 kg I&O - Last 24 Hours: Intake & Output 01/16/17 01/17/17 01/17/17 22:59 06:59 14:59 Intake Total 967 355 420 Output Total 650 1000 825 Balance 229 -441 -957 Lab Results Last 24 Hours: Laboratory Results - last 24 hr 01/17/17 01/17/17 Range/Units 04:02 04:02 WBC 10.1 (4.5-11.0) K/uL RBC 3.73 L (4.30-5.90) M/uL Hgb 11.2 L (12.0-15.0) g/dL Hct 35.0 L (40.0-54.0) % MCV 94 (80-98) fL MCH 30 (27-31) pg MCHC 32 (32-36) % Plt Count 173 (150-400) K/uL Sodium 144 (140-148) mmol/L Potassium 3.8 (3.6-5.2) mmol/L Chloride 107 (100-108) mmol/L Carbon Dioxide 30 (21-32) mmol/L Anion Gap 7.5 (5.0-14.0) mmol/L BUN 26 H (7-18) mg/dL Creatinine 1.2 (0.8-1.3) mg/dL Est Cr Clr Drug Dosing 41.32 mL/min Estimated GFR (MDRD) 57 L (>60) Glucose 125 H (74-106) mg/dL Calcium 8.5 (8.5-10.1) mg/dL Med Orders - Current: Current Medications Acetaminophen (Tylenol) 650 mg PO Q4H PRN PRN Reason: Pain (Mild 1-3)/fever Last Admin: 01/17/17 08:50 Dose: 650 mg Albuterol (Proventil Neb Soln) 2.5 mg NEB Q4H PRN PRN Reason: Shortness Of Breath/wheezing Clopidogrel Bisulfate (Plavix) 75 mg PO DAILY [facility] Last Admin: 01/17/17 08:50 Dose: 75 mg Enoxaparin Sodium (Lovenox) 40 mg SUBCUT DAILY [facility] Last Admin: 01/17/17 08:50 Dose: 40 mg Ceftriaxone Sodium 2 gm/ (Sodium Chloride) 50 mls @ 100 mls/hr IV Q24H [facility] Last Admin: 01/17/17 05:01 Dose: 100 mls/hr Ibuprofen (Motrin) 400 mg PO Q6H PRN PRN Reason: Pain/Fever Insulin Aspart (Novolog) 0 unit SUBCUT ASDIRECTED [facility] PRN Reason: Protocol Last Admin: 01/17/17 12:13 Dose: 2 units Metformin HCl (Glucophage) 500 mg PO BIDMEALS [facility] Last Admin: 01/17/17 07:33 Dose: 500 mg Metformin HCl (Glucophage) 250 mg PO WITHLUNCH [facility] Last Admin: 01/17/17 12:15 Dose: 250 mg Metoprolol Tartrate (Lopressor) 50 mg PO BID [facility] Last Admin: 01/17/17 08:49 Dose: 50 mg Ondansetron HCl (Zofran Odt) 4 mg PO Q6H PRN PRN Reason: Nausea able to take PO Pantoprazole Sodium (Protonix) 40 mg PO DAILY@0730 [facility] Last Admin: 01/17/17 07:33 Dose: 40 mg Polyethylene Glycol (Miralax) 17 gm PO DAILY PRN PRN Reason: Constipation Prednisone (Prednisone) 5 mg PO DAILY@0800 [facility] Last Admin: 01/17/17 07:33 Dose: 5 mg Senna/Docusate Sodium (Senna Plus) 1 tab PO BID PRN PRN Reason: Constipation Sodium Chloride (Saline Flush) 10 ml FLUSH ASDIRECTED PRN PRN Reason: Keep Vein Open Last Admin: 01/15/17 05:11 Dose: 10 ml Triamterene/HCTZ (Maxzide 25-37.5 Mg) 0.5 each PO DAILY [facility] Last Admin: 01/17/17 08:49 Dose: 0.5 each Discontinued Medications Ceftriaxone Sodium (Rocephin) 2 gm IV Q24H [facility] Last Admin: 01/15/17 05:09 Dose: 2 gm Furosemide (Lasix) 40 mg IVPUSH NOW ONE Stop: 01/17/17 10:31 Last Admin: 01/17/17 10:40 Dose: 40 mg Lactated Ringer's (Ringers, Lactated) 1,000 mls @ 500 mls/hr IV ASDIRECTED [facility] Last Admin: 01/15/17 04:43 Dose: 500 mls/hr Sodium Chloride (Normal Saline) 100 mls @ 200 mls/hr IV ASDIRECTED [facility] Last Admin: 01/15/17 05:09 Dose: 200 mls/hr Lactated Ringer's (Ringers, Lactated) 1,000 mls @ 500 mls/hr IV ASDIRECTED [facility] Last Admin: 01/15/17 06:45 Dose: 500 mls/hr Sodium Chloride (Normal Saline) 1,000 mls @ 100 mls/hr IV ASDIRECTED [facility] Last Admin: 01/16/17 07:42 Dose: 100 mls/hr Ibuprofen (Motrin) 600 mg PO ONETIME ONE Stop: 01/15/17 04:40 Last Admin: 01/15/17 04:47 Dose: 600 mg Influenza Virus Vaccine (Pharmacy To Dose - Influenza Vaccine) 1 each IM ONETIME ONE Stop: 01/15/17 13:01 Last Admin: 01/15/17 15:36 Dose: 1 each Influenza Virus Vaccine (Fluzone High-Dose 2016-) 180 mcg IM .ONCE ONE Stop: 01/15/17 14:01 Last Admin: 01/15/17 15:34 Dose: 180 mcg - Exam Quality Assessment: Supplemental Oxygen General: Alert, Oriented, Cooperative, No Acute Distress Neck: Supple Lungs: Normal Respiratory Effort, Crackles (Few at both bases) Cardiovascular: Regular Rate, Regular Rhythm, Murmurs GI/Abdominal Exam: No Distention Extremities: Pedal Edema (Mild bilateral lower extremity edema) Skin: Warm, Dry Psy/Mental Status: Alert, Normal Affect - Problem List Review Problem List Initiated/Reviewed/Updated: Yes - My Orders Last 24 Hours: My Active Orders 01/17/17 16:30 GLUCOSE POC LAB TO COLLECT [POC] QIDACANDBED 01/17/17 21:00 GLUCOSE POC LAB TO COLLECT [POC] QIDACANDBED 01/18/17 07:30 GLUCOSE POC LAB TO COLLECT [POC] QIDACANDBED 01/18/17 11:30 GLUCOSE POC LAB TO COLLECT [POC] QIDACANDBED 01/18/17 16:30 GLUCOSE POC LAB TO COLLECT [POC] QIDACANDBED 01/18/17 21:00 GLUCOSE POC LAB TO COLLECT [POC] QIDACANDBED 01/19/17 07:30 GLUCOSE POC LAB TO COLLECT [POC] QIDACANDBED 01/19/17 11:30 GLUCOSE POC LAB TO COLLECT [POC] QIDACANDBED 01/19/17 16:30 GLUCOSE POC LAB TO COLLECT [POC] QIDACANDBED 01/19/17 21:00 GLUCOSE POC LAB TO COLLECT [POC] QIDACANDBED 01/20/17 07:30 GLUCOSE POC LAB TO COLLECT [POC] QIDACANDBED 01/20/17 11:30 GLUCOSE POC LAB TO COLLECT [POC] QIDACANDBED 01/20/17 16:30 GLUCOSE POC LAB TO COLLECT [POC] QIDACANDBED - Plan Plan:: ASSESSMENT AND PLAN - Acute cystitis with sepsis syndrome - sepsis has resolved. Clinically looks much better today. Urine culture grew out Klebsiella. -Change antibiotics to cephalexin -Saline lock IV Hypoxia - mild, suspect mild volume overload with initial volume resuscitation. -Furosemide 1 -Supplement oxygen -Reassess after diuresis Stage III chronic kidney disease - creatinine back to baseline. -Encourage oral hydration Mild to moderate dementia - slightly confused but no behavior issues at this time. -Melatonin at bedtime -Consider low-dose Haldol if behavior issues Essential hypertension - blood pressure now rising and usual home medications will be restarted. Type 2 diabetes mellitus - on metformin as an outpatient. -Low-dose sliding scale -Restart metformin Maintenance issues - - DVT prophylaxis - enoxaparin - GI prophylaxis - PPI - Nutrition - regular diet Disposition - anticipate discharge to home after the hospital stay. Probably tomorrow if we can wean him off the supplemental oxygen. Roddy Juarez M.D.
[2017-01-18] MEDS: Pantoprazole 40 MG Tab.CR PO SCH (08:40)
[2017-01-18] MEDS: predniSONE 5 MG Tab PO SCH (08:43)
[2017-01-18] MEDS: Hydrochlorothiazide/Triamterene 25-37.5 Tab PO SCH (08:43)
[2017-01-18] MEDS: metFORMIN 500 MG Tab PO SCH ×2 (08:43→12:36)
[2017-01-18] MEDS: Metoprolol Tartrate 50 MG Tab PO SCH (08:44)
[2017-01-18] MEDS: Clopidogrel 75 MG Tab PO SCH (08:44)
[2017-01-18] MEDS: Enoxaparin 40 MG/0.4 ML Syringe SUBCUT SCH (08:45)
[2017-01-18] MEDS ORDERED: Cephalexin 250 MG Cap PO SCH (09:00)
[2017-01-18 11:45] VITALS: BP 131/57
--- NOTE | 2017-01-18 12:08 | PCM.DCSUM1 ---
Discharge Summary - Hospital Course Brief History: 6-year-old male with history of mild dementia and chronic back pain who presented with fever and weakness. He was admitted to the hospital for management of acute cystitis with sepsis syndrome. - Discharge Data Discharge Date: 01/18/17 Discharge Disposition: Home, Self-Care 01 Condition: Fair - Discharge Diagnosis/Problem(s) (1) Acute cystitis with positive culture SNOMED Code(s): 224649267 ICD Code: N30.00 - ACUTE CYSTITIS WITHOUT HEMATURIA Status: Acute (2) Sepsis SNOMED Code(s): 89060251 ICD Code: A41.9 - SEPSIS, UNSPECIFIED ORGANISM Status: Acute Qualifiers: Sepsis type: sepsis due to unspecified organism Qualified Code(s): A41.9 - Sepsis, unspecified organism (3) Dementia SNOMED Code(s): 56605640 ICD Code: F03.90 - UNSPECIFIED DEMENTIA WITHOUT BEHAVIORAL DISTURBANCE Status: Acute Qualifiers: Dementia type: unspecified type Dementia behavioral disturbance: without behavioral disturbance Qualified Code(s): F03.90 - Unspecified dementia without behavioral disturbance (4) Lumbar stenosis SNOMED Code(s): 54217384 ICD Code: M48.061 - SPINAL STENOSIS, LUMBAR REGION WITHOUT NEUROGENIC RAZIA Status: Chronic Qualifiers: Neurogenic claudication status: with neurogenic claudication Qualified Code (s): M48.062 - Spinal stenosis, lumbar region with neurogenic claudication (5) Type 2 diabetes mellitus SNOMED Code(s): 30037616 ICD Code: E11.9 - TYPE 2 DIABETES MELLITUS WITHOUT COMPLICATIONS Status: Chronic Qualifiers: Diabetes mellitus complication status: without complication Diabetes mellitus laborer [employer] insulin use: without half-way use Qualified Code(s): E11.9 - Type 2 diabetes mellitus without complications - Patient Summary/Data Consults: Consultations 01/16/17 07:41 PT Evaluation and Treatment [CONS] Routine Please Evaluate and Treat. PT Reason for Consult: Strengthening This query below is only for informational purposes and is not editable. Hospital Course: Dann presented to the emergency room with rigors and lethargy. Workup in the emergency room suggested acute cystitis with sepsis syndrome. He was admitted to the hospital and started on moderate spectrum antibiotics. He received fluids and cultures were obtained. Overnight following admission he showed fairly impressive improvement with improvement in his mental status. His tachycardia and borderline hypotension improved. We continued IV fluids through the next morning before they were discontinued. He had ongoing improvement in his vital signs and mental status. Strength was improving with therapy. Unfortunately on 2 days after admission he had an episode of hypoxia which was fortunately relatively mild. This did respond to a single dose of diuretics. Following diuresis we are able to wean him off the supplemental oxygen. He no longer requires this supplemental oxygen. His urine culture grew out Klebsiella and antibiotics were adjusted accordingly. I believe he is safe for discharge home and outpatient management at this time. He'll be discharged home with cephalexin and the plan to complete a few more days of antibiotic therapy. He was advised to postpone his elective back surgery scheduled for next week. Hopefully in the next couple of weeks this could be rescheduled once his infection has resolved. He can follow-up if symptoms do not continue to get better or if they get worse. - Patient Instructions Diet: Diabetic Diet Activity: As Tolerated Showering/Bathing: May Shower Notify Provider of: Fever, Increased Pain, Nausea and/or Vomiting Other/Special Instructions: 1. You were in the hospital for management of sepsis caused by a urinary tract infection. You have improved with IV fluids and antibiotics. I do recommend 9 additional doses of cephalexin 500 mg. You will take this medication twice daily with food to avoid stomach upset. Your next dose is due tonight. 2. You will be contacted by Dr. Mansfield's office regarding a new date for your back surgery. Surgery will be postponed because of the infection and risk for complications with a recent infection. 3. Please continue your usual medications as previously prescribed. 4. Seek medical attention if you develop fever greater than 101, have severe abdominal pain, persistent vomiting or severe diarrhea. - Discharge Plan Prescriptions/Med Rec: Cephalexin 500 mg PO BID #9 capsule Home Medications: Home Meds Ascorbic Acid 500 mg PO DAILY 01/22/13 [History] Clopidogrel [Plavix] 75 mg PO DAILY 01/22/13 [History] HCTZ/Triamterene [Maxzide 25-37.5 MG] 0.5 tab PO DAILY 01/22/13 [History] Metoprolol Tartrate [Lopressor] 50 mg PO BID 01/22/13 [History] Pravastatin Sodium 20 mg PO .4XWEEK 01/22/13 [History] Vitamin B Complex [B Complex] 1 each PO DAILY 01/22/13 [History] Vitamin E 400 unit PO DAILY 01/22/13 [History] Pantoprazole [ProTONIX] 40 mg PO DAILY 01/01/14 [History] metFORMIN HCl [Metformin HCl] 500 mg PO BID 01/22/14 [History] predniSONE [Prednisone] 5 mg PO DAILY 01/22/14 [History] metFORMIN [Glucophage] 250 mg PO ACLUNCH 01/15/17 [History] Cephalexin 500 mg PO BID #9 capsule 01/18/17 [Rx] Patient Handouts: Urinary Tract Infection, Adult, [id number], Cephalexin tablets or capsules Referrals: Rudolph Garza MD [Physician] - (f/u next week if symptoms do not continue to get better ) - Discharge Summary/Plan Comment DC Time >30 min.: No (25) - Patient Data Vitals - Most Recent: Last Vital Signs Temp 36.4 C 01/18/17 11:44 Pulse 62 01/18/17 11:44 Resp 18 01/18/17 11:44 BP 131/57 L 01/18/17 11:44 Pulse Ox 94 L 01/18/17 11:44 Weight - Most Recent: 73.482 kg I&O - Last 24 hours: Intake & Output 01/17/17 01/18/17 01/18/17 22:59 06:59 14:59 Intake Total 840 740 Output Total 900 725 400 Balance -60 -725 340 Med Orders - Current: Current Medications Acetaminophen (Tylenol) 650 mg PO Q4H PRN PRN Reason: Pain (Mild 1-3)/fever Last Admin: 01/17/17 08:50 Dose: 650 mg Albuterol (Proventil Neb Soln) 2.5 mg NEB Q4H PRN PRN Reason: Shortness Of Breath/wheezing Cephalexin (Keflex) 500 mg PO BID [facility] Last Admin: 01/18/17 08:43 Dose: 500 mg Clopidogrel Bisulfate (Plavix) 75 mg PO DAILY [facility] Last Admin: 01/18/17 08:44 Dose: 75 mg Enoxaparin Sodium (Lovenox) 40 mg SUBCUT DAILY [facility] Last Admin: 01/18/17 08:45 Dose: 40 mg Ibuprofen (Motrin) 400 mg PO Q6H PRN PRN Reason: Pain/Fever Insulin Aspart (Novolog) 0 unit SUBCUT ASDIRECTED [facility] PRN Reason: Protocol Last Admin: 01/17/17 20:43 Dose: 1 units Metformin HCl (Glucophage) 500 mg PO BIDMEALS [facility] Last Admin: 01/18/17 08:43 Dose: 500 mg Metformin HCl (Glucophage) 250 mg PO WITHLUNCH [facility] Last Admin: 01/17/17 12:15 Dose: 250 mg Metoprolol Tartrate (Lopressor) 50 mg PO BID [facility] Last Admin: 01/18/17 08:44 Dose: 50 mg Ondansetron HCl (Zofran Odt) 4 mg PO Q6H PRN PRN Reason: Nausea able to take PO Pantoprazole Sodium (Protonix) 40 mg PO DAILY@0730 [facility] Last Admin: 01/18/17 08:40 Dose: 40 mg Polyethylene Glycol (Miralax) 17 gm PO DAILY PRN PRN Reason: Constipation Prednisone (Prednisone) 5 mg PO DAILY@0800 [facility] Last Admin: 01/18/17 08:43 Dose: 5 mg Senna/Docusate Sodium (Senna Plus) 1 tab PO BID PRN PRN Reason: Constipation Sodium Chloride (Saline Flush) 10 ml FLUSH ASDIRECTED PRN PRN Reason: Keep Vein Open Last Admin: 01/15/17 05:11 Dose: 10 ml Triamterene/HCTZ (Maxzide 25-37.5 Mg) 0.5 each PO DAILY [facility] Last Admin: 01/18/17 08:43 Dose: 0.5 each Discontinued Medications Ceftriaxone Sodium (Rocephin) 2 gm IV Q24H [facility] Last Admin: 01/15/17 05:09 Dose: 2 gm Furosemide (Lasix) 40 mg IVPUSH NOW ONE Stop: 01/17/17 10:31 Last Admin: 01/17/17 10:40 Dose: 40 mg Lactated Ringer's (Ringers, Lactated) 1,000 mls @ 500 mls/hr IV ASDIRECTED [facility] Last Admin: 01/15/17 04:43 Dose: 500 mls/hr Sodium Chloride (Normal Saline) 100 mls @ 200 mls/hr IV ASDIRECTED [facility] Last Admin: 01/15/17 05:09 Dose: 200 mls/hr Lactated Ringer's (Ringers, Lactated) 1,000 mls @ 500 mls/hr IV ASDIRECTED [facility] Last Admin: 01/15/17 06:45 Dose: 500 mls/hr Ceftriaxone Sodium 2 gm/ (Sodium Chloride) 50 mls @ 100 mls/hr IV Q24H [facility] Last Admin: 01/17/17 05:01 Dose: 100 mls/hr Sodium Chloride (Normal Saline) 1,000 mls @ 100 mls/hr IV ASDIRECTED [facility] Last Admin: 01/16/17 07:42 Dose: 100 mls/hr Ibuprofen (Motrin) 600 mg PO ONETIME ONE Stop: 01/15/17 04:40 Last Admin: 01/15/17 04:47 Dose: 600 mg Influenza Virus Vaccine (Pharmacy To Dose - Influenza Vaccine) 1 each IM ONETIME ONE Stop: 01/15/17 13:01 Last Admin: 01/15/17 15:36 Dose: 1 each Influenza Virus Vaccine (Fluzone High-Dose ) 180 mcg IM .ONCE ONE Stop: 01/15/17 14:01 Last Admin: 01/15/17 15:34 Dose: 180 mcg - Exam Quality Assessment: Denies: Supplemental Oxygen General: Reports: Alert, Cooperative, No Acute Distress Neck: Reports: Supple Lungs: Reports: Normal Respiratory Effort GI/Abdominal Exam: No Distention Skin: Reports: Warm, Dry *Q Meaningful Use (DIS) - VTE *Q VTE Criteria *Q: - Stroke *Q Stroke Criteria *Q: - AMI *Q AMI Criteria *Q:
== END 2017-01-18 13:05 | disposition home or self-care (01) | DRG 872 ==
LOC: JP.ED 04:03 → JP.MS 07:40
PROVIDERS: ADMIT Internal Medicine; ATTEND Internal Medicine
DX: A41.9 Sepsis, unspecified organism (principal); N30.00 Acute cystitis without hematuria; B96.1 Klebsiella pneumoniae [K. pneumoniae] as the cause of diseases classified elsewhere; I12.9 Hypertensive chronic kidney disease with stage 1 through stage 4 chronic kidney disease, or unspecified chronic kidney disease; F03.90 Unspecified dementia, unspecified severity, without behavioral disturbance, psychotic disturbance, mood disturbance, and anxiety; N18.3 Chronic kidney disease, stage 3 (moderate); Z87.891 Personal history of nicotine dependence; R53.1 Weakness; R50.9 Fever, unspecified; R35.0 Frequency of micturition; Z79.84 Long term (current) use of oral hypoglycemic drugs; Z66 Do not resuscitate; E11.22 Type 2 diabetes mellitus with diabetic chronic kidney disease; Z23 Encounter for immunization; R09.02 Hypoxemia; M48.062 Spinal stenosis, lumbar region with neurogenic claudication; Z85.819 Personal history of malignant neoplasm of unspecified site of lip, oral cavity, and pharynx; M54.9 Dorsalgia, unspecified; G89.29 Other chronic pain; H91.90 Unspecified hearing loss, unspecified ear; H54.7 Unspecified visual loss; Z79.52 Long term (current) use of systemic steroids; Z88.0 Allergy status to penicillin; Z88.7 Allergy status to serum and vaccine
CPT/HCPCS: 36415; 71010 ×2; 80053; 81001; 82962; 83605; 83690; 83735; 84100; 85025; 86140; 87040 ×2; 87086; 87088; 87186; 96360; 96361; 99285; A9270; J0696; J7030; J7050; J7120 ×2; 80048; 85027; 90662; 97162-GP; 97530-GP; G0008; J1650; J1940; J7040

== ENCOUNTER 2017-01-22 07:30 | Inpatient (IN) | payer MEDICARE, BC ==
[2017-02-06] MEDS: Lactated Ringers 1,000 ML IV SCH ×2 (06:10→14:21)
[2017-02-06] MEDS ORDERED: Scopolamine 1.5 MG Transdermal Patch TOP SCH (06:15)
[2017-02-06] MEDS ORDERED: Gabapentin 300 MG Cap PO ONE (06:15)
[2017-02-06] MEDS ORDERED: Thrombin (Bovine) 5,000 Unit Kit ONE (06:52)
[2017-02-06] MEDS ORDERED: Povidone-Iodine 10% Soln 118.25 ML Bottle ONE (06:52)
[2017-02-06] MEDS: Tranexamic Acid 730 MG in Sodium Chloride 0.9% 50 ML IV SCH ×2 (07:14→10:15)
[2017-02-06] MEDS ORDERED: fentaNYL 250 MCG/5 ML SDV ONE (07:19)
[2017-02-06] MEDS ORDERED: Ondansetron 4 MG/2 ML SDV ONE (07:19)
[2017-02-06] MEDS ORDERED: Propofol 200 MG/20 ML SDV ONE ×2 (07:19→07:48)
[2017-02-06] MEDS ORDERED: Rocuronium 50 MG/5 ML Vial ONE (07:19)
[2017-02-06] MEDS ORDERED: Dexamethasone 4 MG/ML SDV ONE (07:19)
[2017-02-06] MEDS ORDERED: Clindamycin Phosphate 900 MG in Sodium Chloride 0.9% 100 ML IV ONE (07:30)
[2017-02-06] MEDS ORDERED: Ropivacaine 49.25 ML, Ketorolac 30 MG, EPINEPHrine 0.5 MG, cloNIDine 80 MCG, Sodium Chl... INJECT ONE ×5 (07:30)
[2017-02-06] MEDS ORDERED: Ketamine 500 MG/5 ML MDV IV ONE (07:30)
[2017-02-06] MEDS ORDERED: ePHEDrine 50 MG/ML SDV ONE (07:45)
[2017-02-06] MEDS ORDERED: Gelatin Sponge,Absorbable Pwd 1 GM Pkt ONE (08:00)
[2017-02-06] MEDS ORDERED: Lactated Ringers 1,000 ML ONE (08:26)
[2017-02-06] MEDS ORDERED: Ketorolac 60 MG/2 ML SDV ONE (09:30)
[2017-02-06] MEDS ORDERED: Bupivacaine 0.5%/EPINEPHrine 1:200,000 50 ML MDV ONE (09:32)
[2017-02-06] MEDS ORDERED: Aluminum Hydroxide/Magnesium Hydroxide/Simethicone Susp 30 ML Cup PO PRN (10:00)
[2017-02-06] MEDS ORDERED: Diazepam 5 MG Tab PO PRN (10:00)
[2017-02-06] MEDS ORDERED: Zolpidem 5 MG Tab PO PRN (10:00)
[2017-02-06] MEDS ORDERED: Naloxone 0.4 MG/ML SDV IVPUSH PRN (10:00)
[2017-02-06] MEDS ORDERED: HYDROmorphone 1 MG/ML Syringe IVPUSH PRN (10:00)
[2017-02-06] MEDS ORDERED: Ondansetron 4 MG/2 ML SDV IVPUSH PRN (10:00)
[2017-02-06] MEDS ORDERED: Acetaminophen 1,000 MG in Premix Bag 1 BAG IV ONE (10:30)
[2017-02-06] MEDS: oxyCODONE 5 MG Tab PO PRN ×2 (13:16→16:59)
[2017-02-06] MEDS: VERIFY SCOPOLAMINE PATCH TOP SCH (13:17)
--- NOTE | 2017-02-06 14:31 | OR ---
DATE OF PROCEDURE: 02/06/2017 PREOPERATIVE DIAGNOSES: 1. L4-5 spondylolisthesis. 2. L4-5 stenosis. 3. L5-S1 stenosis. POSTOPERATIVE DIAGNOSES: 1. L4-5 spondylolisthesis. 2. L4-5 stenosis. 3. L5-S1 stenosis. PROCEDURES PERFORMED: 1. Posterolateral fusion at L4-L5. 2. Posterolateral fusion at L5-S1. 3. Segmental instrumentation at L4-5 and L5-S1. 4. Use of intraoperative fluoroscopy. 5. Use of autograft to take from laminectomy and posterolateral fusion. FELLMONGERING MACHINE OPERATOR: PRAVEEN Felix. Physician visitor information assistant, PRAVEEN Felix, played an essential role in assisting in this case, helping to position the patient, retract structures as needed, as well as suturing and cutting sutures as indicated. Her presence improved patient's safety and decreased operative time. ANESTHESIA: General endotracheal intubation. FLUID: Lactated Ringer solution. ESTIMATED BLOOD LOSS: 200 mL. COMPLICATIONS: None. SPECIMEN: None. DISCHARGE DISPOSITION: Stable to PACU. HISTORY AND INDICATION FOR THE PROCEDURE: The patient was seen in the clinic. He had failed nonoperative treatment. Preoperative imaging confirmed the above-mentioned diagnosis. Risks and benefits of the procedure were explained to the patient and informed consent was obtained. DESCRIPTION OF PROCEDURE: The patient was seen preoperatively by myself and the Anesthesia staff in the preoperative holding area, where the operative site was marked. He was brought to the operative suite by the Anesthesia staff, where general anesthesia was administered. Neuromonitoring leads were placed and normal throughout the procedure. A sterile Kaur catheter was placed. He was then placed into a prone position on a [place] table. All extremities were found to be well padded. The bed was then flexed. The patient was then prepped and draped in a sterile manner. Time-out was called identifying the correct patient, the correct procedure, the correct site, and that the antibiotics had been begun within the appropriate period of time. Lateral fluoroscopy was used to identify the pedicles of L4 through S1. A midline incision was made over the spinous processes of L4 through S1 and carried down to the deep fascia. Bleeding during the case was controlled with Bovie electrocautery as well as Aquamantys 5.0 unit. Cerebellars were used for initial retraction. There was a great deal of generalized oozing throughout the case. I then used Bovie electrocautery and Edmondson elevator to go down over the spinous processes of L4, L5 and S1 over the respective laminas, facets, and down to the transverse processes and sacral ala. I then inserted Versa-Trac retractor blades and then cleaned the soft tissue and identified the pars bilaterally. I then placed screws in the following manner; starting on the right side, at the midpoint of the transverse process, drilling down the facets, making an entry hole point with the drill, using the PediGuard, and then confirming placement tract with lateral fluoroscopy. Then, using a pedicle probe, followed by tap, followed by pedicle probe, followed by screw placement. 50 mm x 6.5 mm screws were used at L4, 45 mm x 6.5 mm screws were used at L5, and 40 mm x 6.5 mm screws were used at S1. Screws all tested normal at 30. We then focused on laminectomy. I removed any soft tissue, interspinous ligaments and supraspinous ligaments, and then used my laminectomies for bone. I performed a laminectomy at L4 and L5. Then, using the long ball and cottonoids, protected the dura and then removed ligamentum flavum bilaterally. Foramen were opened. After this had been accomplished, I placed some Floseal in the lateral recesses and then tamped any excess dry with a Ray-Ella. We then copiously irrigated with 3 L of Betadine infused irrigation and then placed our Tulips, 50 mm rods, set screws, and then torqued them to specification. I then decorticated the transverse processes and sacral ala bilaterally and used bone graft with Signify from [employer], which is allograft, mixed it together and placed in the lateral gutters. The bone was prepared with the [employer] bone mill. After this had been accomplished, we then applied the remainder of the Floseal on the muscle belly as well as one and a half packets of Gelfoam powder and local anesthetic, and then closed the deep fascia with #1 STRATAFIX, followed by deep subcu closure with #2 STRATAFIX, followed by subcutaneous closure with 3-0 STRATAFIX. We did irrigate another liter of Betadine infused irrigation and applied the half pack remaining of Gelfoam powder. The patient had a sterile dressing placed and was taken to the PACU in a stable condition. Layo Mansfield DO /[id number]
[2017-02-06] MEDS ORDERED: Glucose Gel 15 GM in 37.5 GM Tube PO PRN (16:06)
[2017-02-06] MEDS ORDERED: 50% Dextrose in Water 50 ML Syringe IV PRN (16:06)
--- NOTE | 2017-02-06 16:24 | PCM.CONS ---
H&P History of Present Illness - General Date of Service: 02/06/17 Admit Problem/Dx: Admission Diagnosis/Problem Admission Diagnosis/Problem Lumbar spinal fusion Source of Information: Patient, Family History Limitations: Reports: Altered Mental Status - History of Present Illness Initial Comments - Free Text/Narative: Dann is a surgical patient post-op day 0 s/p lumbar laminectomy, stable in the post-operative period. Post-op care will be provided by Dr. Mansfield. We were consulted for medical management of his diabetes, hypertension, and GERD. Patient is currently groggy from anesthesia and pain meds, on top of baseline dementia, so he is unable to provide a very detailed history. His , Gladys, is in the room to assist. Onset of Symptoms: Reports: Unknown/Unsure (long history of lower back pain) Lower Back Pain Score (Numeric/FACES): 4 - Related Data Allergies/Adverse Reactions: Allergies Allergy/AdvReac Type Severity Reaction Status Date / Time Penicillins Allergy Unknown Other Verified 02/06/17 05:50 pneumococcal 23-valent Allergy Headache Verified 02/06/17 05:50 polysacchari [From Pneumovax 23] Home Medications: Home Meds Ascorbic Acid 500 mg PO DAILY 01/22/13 [History] Clopidogrel [Plavix] 75 mg PO DAILY 01/22/13 [History] HCTZ/Triamterene [Maxzide 25-37.5 MG] 0.5 tab PO DAILY 01/22/13 [History] Metoprolol Tartrate [Lopressor] 50 mg PO BID 01/22/13 [History] Pravastatin Sodium 20 mg PO .4XWEEK 01/22/13 [History] Vitamin B Complex [B Complex] 1 each PO DAILY 01/22/13 [History] Vitamin E 400 unit PO DAILY 01/22/13 [History] Pantoprazole [ProTONIX] 40 mg PO DAILY 01/01/14 [History] metFORMIN HCl [Metformin HCl] 500 mg PO BID 01/22/14 [History] predniSONE [Prednisone] 5 mg PO DAILY 01/22/14 [History] metFORMIN [Glucophage] 250 mg PO ACLUNCH 01/15/17 [History] Cephalexin 500 mg PO BID #9 capsule 01/18/17 [Rx] Past Medical History HEENT History: Reports: Cataract, Hard of Hearing, Impaired Vision Cardiovascular History: Reports: Heart Murmur, Hypertension Gastrointestinal History: Reports: GERD Genitourinary History: Reports: Renal Calculus Musculoskeletal History: Reports: Back Pain, Chronic Other Musculoskeletal History: polymyalgia rheumatica Neurological History: Reports: Concussion Other Neuro History: short term memory loss Endocrine/Metabolic History: Reports: Diabetes, Type II Oncologic (Cancer) History: Reports: Other (See Below) Other Oncologic History: face, hands, lips - Infectious Disease History Infectious Disease History: Reports: C-Difficile, Measles, Mumps, Scarlet Fever - Past Surgical History Head Surgeries/Procedures: Reports: None HEENT Surgical History: Reports: Adenoidectomy, Cataract Surgery, Tonsillectomy Cardiovascular Surgical History: Reports: None GI Surgical History: Reports: Appendectomy, Colonoscopy, Hernia Repair/Other Male Surgical History: Reports: None Endocrine Surgical History: Reports: None Neurological Surgical History: Reports: None Musculoskeletal Surgical History: Reports: None Oncologic Surgical History: Reports: None Dermatological Surgical History: Reports: None Social & Family History - Family History Family Medical History: Noncontributory - Tobacco Use Smoking Status *Q: Former Smoker Years of Tobacco use: 2 Used Tobacco, but Quit: Yes Month Tobacco Last Used: 1975 Second Hand Smoke Exposure: No - Caffeine Use Caffeine Use: Reports: Coffee, Soda Other Caffeine Use: drinks 1-2 cups/day of coffee. - Alcohol Use Days Per Week of Alcohol Use: 0 - Recreational Drug Use Recreational Drug Use: No H&P Review of Systems - Review of Systems: Review Of Systems: Unable To Obtain (Pt says everything is mixing together right now, groggy from pain meds and anesthesia) Exam - Exam Exam: See Below - Vital Signs Vital Signs: Last Vital Signs Temp 97.1 F 02/06/17 15:30 Pulse 74 02/06/17 15:30 Resp 16 02/06/17 15:30 BP 98/59 L 02/06/17 15:30 Pulse Ox 95 02/06/17 15:30 Weight: 157 lb - Exam General: Cooperative, Lethargic Lungs: Clear to Auscultation. No: Crackles, Stridor, Wheezing Cardiovascular: Regular Rate, Regular Rhythm, Systolic Murmur Back Exam: No: Other (currently in brace) Skin: Warm, Dry, Intact Psychiatric: Normal Affect, Normal Mood - Patient Data Lab Results Last 24 hrs: Laboratory Results - last 24 hr 02/06/17 02/06/17 02/06/17 Range/Units 05:50 05:50 05:50 WBC 6.8 (4.5-11.0) K/uL RBC 4.68 (4.30-5.90) M/uL Hgb 13.6 D (12.0-15.0) g/dL Hct 43.3 (40.0-54.0) % MCV 93 (80-98) fL MCH 29 (27-31) pg MCHC 31 L (32-36) % Plt Count 164 (150-400) K/uL PT 10.7 (9.5-12.0) sec INR 1.00 (0.80-1.20) Sodium (140-148) mmol/L Potassium (3.6-5.2) mmol/L Chloride (100-108) mmol/L Carbon Dioxide (21-32) mmol/L Anion Gap (5.0-14.0) mmol/L BUN (7-18) mg/dL Creatinine (0.8-1.3) mg/dL Est Cr Clr Drug Dosing mL/min Estimated GFR (MDRD) (>60) Glucose (74-106) mg/dL Calcium (8.5-10.1) mg/dL Total Bilirubin (0.2-1.0) mg/dL AST (15-37) U/L ALT (12-78) U/L Alkaline Phosphatase (46-116) U/L Total Protein (6.4-8.2) g/dL Albumin (3.4-5.0) g/dL Globulin (2.3-3.5) g/dL Albumin/Globulin Ratio (1.2-2.2) Blood Type A NEGATIVE Gel Antibody Screen Negative 02/06/17 Range/Units 06:15 WBC (4.5-11.0) K/uL RBC (4.30-5.90) M/uL Hgb (12.0-15.0) g/dL Hct (40.0-54.0) % MCV (80-98) fL MCH (27-31) pg MCHC (32-36) % Plt Count (150-400) K/uL PT (9.5-12.0) sec INR (0.80-1.20) Sodium 143 (140-148) mmol/L Potassium 4.2 (3.6-5.2) mmol/L Chloride 106 (100-108) mmol/L Carbon Dioxide 29 (21-32) mmol/L Anion Gap 7.9 (5.0-14.0) mmol/L BUN 29 H (7-18) mg/dL Creatinine 1.5 H (0.8-1.3) mg/dL Est Cr Clr Drug Dosing 31.83 mL/min Estimated GFR (MDRD) 44 L (>60) Glucose 104 (74-106) mg/dL Calcium 9.3 (8.5-10.1) mg/dL Total Bilirubin 0.6 (0.2-1.0) mg/dL AST 28 (15-37) U/L ALT 34 (12-78) U/L Alkaline Phosphatase 44 L (46-116) U/L Total Protein 6.5 (6.4-8.2) g/dL Albumin 3.6 (3.4-5.0) g/dL Globulin 2.9 (2.3-3.5) g/dL Albumin/Globulin Ratio 1.2 (1.2-2.2) Blood Type Gel Antibody Screen Result Diagrams: 02/06/17 05:50 02/06/17 06:15 Consult PN Assessment/Plan Procedures: Procedures ASSAY OF CREATININE (04/07/14) ASSAY OF LACTIC ACID (01/15/17) ASSAY OF LIPASE (01/15/17) ASSAY OF MAGNESIUM (01/15/17) ASSAY OF PHOSPHORUS (01/15/17) BLOOD CULTURE FOR BACTERIA (01/15/17) BLOOD TYPING SEROLOGIC ABO (01/07/17) BLOOD TYPING SEROLOGIC RH(D) (01/07/17) C-REACTIVE PROTEIN (01/15/17) CHEST X-RAY 1 VIEW FRONTAL (01/15/17) COMPLETE CBC AUTOMATED (01/15/17) COMPLETE CBC W/AUTO DIFF WBC (01/15/17) COMPREHEN METABOLIC PANEL (01/15/17) CT HEAD/BRAIN W/O DYE (05/28/16) CT MAXILLOFACIAL W/O DYE (05/28/16) CT SFT TSUE NCK W/O & W/DYE (04/07/14) CULTURE OTHR SPECIMN AEROBIC (01/07/17) ELECTROCARDIOGRAM REPORT (01/22/14) ELECTROCARDIOGRAM TRACING (01/07/17) EMERGENCY DEPT VISIT (01/15/17) EMERGENCY DEPT VISIT (05/28/16) EXC F/E/E/N/L MAL+MRG 2.1-3 (01/04/14) EXTRACRANIAL BILAT STUDY (01/26/14) GLUCOSE BLOOD TEST (01/15/17) HYDRATE IV INFUSION ADD-ON (01/15/17) HYDRATION IV INFUSION INIT (01/15/17) INJ TRIGGER POINT 1/2 MUSCL (01/22/13) INJECT SPINE LUMBAR/SACRAL (05/12/15) INJECT TRIGGER POINTS 3/> (05/12/15) INTMD RPR FACE/MM 2.5 CM/< (01/04/14) MANUAL THERAPY 1/> REGIONS (10/25/16) MECHANICAL TRACTION THERAPY (10/25/16) METABOLIC PANEL TOTAL CA (01/15/17) MICROBE SUSCEPTIBLE DELORIS (01/15/17) MRI LUMBAR SPINE W/O DYE (12/26/16) NEUROMUSCULAR REEDUCATION (01/21/13) PT EVAL MOD COMPLEX 30 MIN (01/15/17) PT EVALUATION (01/21/13) RBC ANTIBODY SCREEN (01/07/17) RBC SED RATE NONAUTOMATED (01/22/14) ROUTINE VENIPUNCTURE (01/15/17) THERAPEUTIC ACTIVITIES (01/15/17) THERAPEUTIC EXERCISES (10/18/16) TISSUE EXAM BY PATHOLOGIST (01/04/14) ULTRASOUND THERAPY (10/25/16) URINALYSIS AUTO W/O SCOPE (01/07/17) URINALYSIS AUTO W/SCOPE (01/15/17) URINE BACTERIA CULTURE (01/15/17) URINE CULTURE/COLONY COUNT (01/15/17) X-RAY EXAM L-2 SPINE 4/>VWS (01/07/17) Problem List Initiated/Reviewed/Updated: Yes My Orders Last 24 Hours: My Active Orders 02/06/17 16:06 Blood Glucose Check, Bedside [RC] QIDACANDBED Diabetes Education [RC] Click to Edit Dextrose 50% in Water 50 ml IV ONETIME PRN Dextrose [Glutose 15] 15 gm PO ONETIME PRN 02/06/17 16:07 Notify Provider [RC] PRN 02/06/17 16:09 Communication Order [RC] ASDIRECTED 02/06/17 16:15 Pravastatin [Pravachol] 20 mg PO .4XWEEK 02/06/17 16:30 GLUCOSE POC LAB TO COLLECT [POC] QIDACANDBED 02/06/17 17:00 Insulin Aspart [NovoLOG] See Protocol SUBCUT QIDACANDBED 02/06/17 21:00 GLUCOSE POC LAB TO COLLECT [POC] QIDACANDBED Metoprolol Tartrate [Lopressor] 50 mg PO BID 02/07/17 07:30 GLUCOSE POC LAB TO COLLECT [POC] QIDACANDBED 02/07/17 09:00 Pantoprazole [ProTONIX] 40 mg PO DAILY predniSONE 5 mg PO DAILY 02/07/17 11:30 GLUCOSE POC LAB TO COLLECT [POC] QIDACANDBED 02/07/17 16:30 GLUCOSE POC LAB TO COLLECT [POC] QIDACANDBED 02/07/17 21:00 GLUCOSE POC LAB TO COLLECT [POC] QIDACANDBED 02/08/17 07:30 GLUCOSE POC LAB TO COLLECT [POC] QIDACANDBED 02/08/17 11:30 GLUCOSE POC LAB TO COLLECT [POC] QIDACANDBED 02/08/17 16:30 GLUCOSE POC LAB TO COLLECT [POC] QIDACANDBED 02/08/17 21:00 GLUCOSE POC LAB TO COLLECT [POC] QIDACANDBED 02/09/17 07:30 GLUCOSE POC LAB TO COLLECT [POC] QIDACANDBED 02/09/17 11:30 GLUCOSE POC LAB TO COLLECT [POC] QIDACANDBED 02/09/17 16:30 GLUCOSE POC LAB TO COLLECT [POC] QIDACANDBED 02/09/17 21:00 GLUCOSE POC LAB TO COLLECT [POC] QIDACANDBED 02/10/17 07:30 GLUCOSE POC LAB TO COLLECT [POC] QIDACANDBED 02/10/17 11:30 GLUCOSE POC LAB TO COLLECT [POC] QIDACANDBED 02/10/17 16:30 GLUCOSE POC LAB TO COLLECT [POC] QIDACANDBED 02/10/17 21:00 GLUCOSE POC LAB TO COLLECT [POC] QIDACANDBED 02/11/17 07:30 GLUCOSE POC LAB TO COLLECT [POC] QIDACANDBED 02/11/17 11:30 GLUCOSE POC LAB TO COLLECT [POC] QIDACANDBED 02/11/17 16:30 GLUCOSE POC LAB TO COLLECT [POC] QIDACANDBED 02/11/17 21:00 GLUCOSE POC LAB TO COLLECT [POC] QIDACANDBED 02/12/17 07:30 GLUCOSE POC LAB TO COLLECT [POC] QIDACANDBED 02/12/17 11:30 GLUCOSE POC LAB TO COLLECT [POC] QIDACANDBED 02/12/17 16:30 GLUCOSE POC LAB TO COLLECT [POC] QIDACANDBED 02/12/17 21:00 GLUCOSE POC LAB TO COLLECT [POC] QIDACANDBED 02/13/17 07:30 GLUCOSE POC LAB TO COLLECT [POC] QIDACANDBED 02/13/17 11:30 GLUCOSE POC LAB TO COLLECT [POC] QIDACANDBED 02/13/17 16:30 GLUCOSE POC LAB TO COLLECT [POC] QIDACANDBED 02/13/17 21:00 GLUCOSE POC LAB TO COLLECT [POC] QIDACANDBED 02/14/17 07:30 GLUCOSE POC LAB TO COLLECT [POC] QIDACANDBED 02/14/17 11:30 GLUCOSE POC LAB TO COLLECT [POC] QIDACANDBED 02/14/17 16:30 GLUCOSE POC LAB TO COLLECT [POC] QIDACANDBED 02/14/17 21:00 GLUCOSE POC LAB TO COLLECT [POC] QIDACANDBED 02/15/17 07:30 GLUCOSE POC LAB TO COLLECT [POC] QIDACANDBED 02/15/17 11:30 GLUCOSE POC LAB TO COLLECT [POC] QIDACANDBED 02/15/17 16:30 GLUCOSE POC LAB TO COLLECT [POC] QIDACANDBED 02/15/17 21:00 GLUCOSE POC LAB TO COLLECT [POC] QIDACANDBED 02/16/17 07:30 GLUCOSE POC LAB TO COLLECT [POC] QIDACANDBED 02/16/17 11:30 GLUCOSE POC LAB TO COLLECT [POC] QIDACANDBED 02/16/17 16:30 GLUCOSE POC LAB TO COLLECT [POC] QIDACANDBED 02/16/17 21:00 GLUCOSE POC LAB TO COLLECT [POC] QIDACANDBED 02/17/17 07:30 GLUCOSE POC LAB TO COLLECT [POC] QIDACANDBED 02/17/17 11:30 GLUCOSE POC LAB TO COLLECT [POC] QIDACANDBED 02/17/17 16:30 GLUCOSE POC LAB TO COLLECT [POC] QIDACANDBED 02/17/17 21:00 GLUCOSE POC LAB TO COLLECT [POC] QIDACANDBED 02/18/17 07:30 GLUCOSE POC LAB TO COLLECT [POC] QIDACANDBED 02/18/17 11:30 GLUCOSE POC LAB TO COLLECT [POC] QIDACANDBED 02/18/17 16:30 GLUCOSE POC LAB TO COLLECT [POC] QIDACANDBED 02/18/17 21:00 GLUCOSE POC LAB TO COLLECT [POC] QIDACANDBED 02/19/17 07:30 GLUCOSE POC LAB TO COLLECT [POC] QIDACANDBED 02/19/17 11:30 GLUCOSE POC LAB TO COLLECT [POC] QIDACANDBED 02/19/17 16:30 GLUCOSE POC LAB TO COLLECT [POC] QIDACANDBED 02/19/17 21:00 GLUCOSE POC LAB TO COLLECT [POC] QIDACANDBED 02/20/17 07:30 GLUCOSE POC LAB TO COLLECT [POC] QIDACANDBED 02/20/17 11:30 GLUCOSE POC LAB TO COLLECT [POC] QIDACANDBED 02/20/17 16:30 GLUCOSE POC LAB TO COLLECT [POC] QIDACANDBED 02/20/17 21:00 GLUCOSE POC LAB TO COLLECT [POC] QIDACANDBED 02/21/17 07:30 GLUCOSE POC LAB TO COLLECT [POC] QIDACANDBED 02/21/17 11:30 GLUCOSE POC LAB TO COLLECT [POC] QIDACANDBED 02/21/17 16:30 GLUCOSE POC LAB TO COLLECT [POC] QIDACANDBED 02/21/17 21:00 GLUCOSE POC LAB TO COLLECT [POC] QIDACANDBED 02/22/17 07:30 GLUCOSE POC LAB TO COLLECT [POC] QIDACANDBED 02/22/17 11:30 GLUCOSE POC LAB TO COLLECT [POC] QIDACANDBED 02/22/17 16:30 GLUCOSE POC LAB TO COLLECT [POC] QIDACANDBED 02/22/17 21:00 GLUCOSE POC LAB TO COLLECT [POC] QIDACANDBED 02/23/17 07:30 GLUCOSE POC LAB TO COLLECT [POC] QIDACANDBED 02/23/17 11:30 GLUCOSE POC LAB TO COLLECT [POC] QIDACANDBED 02/23/17 16:30 GLUCOSE POC LAB TO COLLECT [POC] QIDACANDBED 02/23/17 21:00 GLUCOSE POC LAB TO COLLECT [POC] QIDACANDBED 02/24/17 07:30 GLUCOSE POC LAB TO COLLECT [POC] QIDACANDBED 02/24/17 11:30 GLUCOSE POC LAB TO COLLECT [POC] QIDACANDBED 02/24/17 16:30 GLUCOSE POC LAB TO COLLECT [POC] QIDACANDBED 02/24/17 21:00 GLUCOSE POC LAB TO COLLECT [POC] QIDACANDBED 02/25/17 07:30 GLUCOSE POC LAB TO COLLECT [POC] QIDACANDBED 02/25/17 11:30 GLUCOSE POC LAB TO COLLECT [POC] QIDACANDBED 02/25/17 16:30 GLUCOSE POC LAB TO COLLECT [POC] QIDACANDBED 02/25/17 21:00 GLUCOSE POC LAB TO COLLECT [POC] QIDACANDBED 02/26/17 07:30 GLUCOSE POC LAB TO COLLECT [POC] QIDACANDBED 02/26/17 11:30 GLUCOSE POC LAB TO COLLECT [POC] QIDACANDBED 02/26/17 16:30 GLUCOSE POC LAB TO COLLECT [POC] QIDACANDBED 02/26/17 21:00 GLUCOSE POC LAB TO COLLECT [POC] QIDACANDBED 02/27/17 07:30 GLUCOSE POC LAB TO COLLECT [POC] QIDACANDBED 02/27/17 11:30 GLUCOSE POC LAB TO COLLECT [POC] QIDACANDBED 02/27/17 16:30 GLUCOSE POC LAB TO COLLECT [POC] QIDACANDBED 02/27/17 21:00 GLUCOSE POC LAB TO COLLECT [POC] QIDACANDBED 02/28/17 07:30 GLUCOSE POC LAB TO COLLECT [POC] QIDACANDBED 02/28/17 11:30 GLUCOSE POC LAB TO COLLECT [POC] QIDACANDBED 02/28/17 16:30 GLUCOSE POC LAB TO COLLECT [POC] QIDACANDBED 02/28/17 21:00 GLUCOSE POC LAB TO COLLECT [POC] QIDACANDBED 03/01/17 07:30 GLUCOSE POC LAB TO COLLECT [POC] QIDACANDBED 03/01/17 11:30 GLUCOSE POC LAB TO COLLECT [POC] QIDACANDBED 03/01/17 16:30 GLUCOSE POC LAB TO COLLECT [POC] QIDACANDBED 03/01/17 21:00 GLUCOSE POC LAB TO COLLECT [POC] QIDACANDBED 03/02/17 07:30 GLUCOSE POC LAB TO COLLECT [POC] QIDACANDBED 03/02/17 11:30 GLUCOSE POC LAB TO COLLECT [POC] QIDACANDBED 03/02/17 16:30 GLUCOSE POC LAB TO COLLECT [POC] QIDACANDBED 03/02/17 21:00 GLUCOSE POC LAB TO COLLECT [POC] QIDACANDBED 03/03/17 07:30 GLUCOSE POC LAB TO COLLECT [POC] QIDACANDBED Plan: 02/06/17 Dann is post-op day 0 s/p lumbar laminectomy, stable in the post-operative period. -Post-operative care to be managed by Dr. Mansfield. Type 2 Diabetes, previously well-managed -qid glucometer -LDSSI with novalog -hold metformin Polymyalgia Rheumatica -continue home dose prednisone Hypertension, currently slightly hypotensive -continue metoprolol -hold triamterene-hydrochlorothiazide in context of post-operative hypovolemia Cardiac protection -continue pravastatin -hold clopidogrel for now Requesting Provider: Dr. Robert Mansfield Date Consult Requested: 02/06/17 Reason for Consult: Medical Management Patient History Reviewed: Yes Admission H&P Reviewed: Yes
[2017-02-06] MEDS: Sennosides 8.6 MG Tab PO PRN (16:59)
[2017-02-06] MEDS: Insulin Aspart 100 Units/ML 3 ML Pen SUBCUT SCH ×2 (17:01→21:41)
--- NOTE | 2017-02-06 17:04 | PCM.CONS ---
H&P History of Present Illness - General Date of Service: 02/06/17 Admit Problem/Dx: Admission Diagnosis/Problem Admission Diagnosis/Problem Lumbar spinal fusion Source of Information: Family, Provider, RN Notes Reviewed History Limitations: Reports: Altered Mental Status (Dementia, postoperative sedation) - History of Present Illness Initial Comments - Free Text/Narative: Mr. Wong is an 86-year-old gentleman who underwent lumbar laminectomy earlier today by Dr. Mansfield. I been asked to see him for assistance in medical management during his hospital stay. Mr. Wong has done well during the initial postoperative period other than increase in his usual level of confusion. Currently denies any symptoms of chest pain, shortness of breath, nausea, vomiting. He is otherwise relatively healthy but does have a known history of type 2 diabetes mellitus. Lower Back Pain Score (Numeric/FACES): 4 - Related Data Allergies/Adverse Reactions: Allergies Allergy/AdvReac Type Severity Reaction Status Date / Time Penicillins Allergy Unknown Other Verified 02/06/17 05:50 pneumococcal 23-valent Allergy Headache Verified 02/06/17 05:50 polysacchari [From Pneumovax 23] Home Medications: Home Meds Ascorbic Acid 500 mg PO DAILY 01/22/13 [History] Clopidogrel [Plavix] 75 mg PO DAILY 01/22/13 [History] HCTZ/Triamterene [Maxzide 25-37.5 MG] 0.5 tab PO DAILY 01/22/13 [History] Metoprolol Tartrate [Lopressor] 50 mg PO BID 01/22/13 [History] Pravastatin Sodium 20 mg PO .4XWEEK 01/22/13 [History] Vitamin B Complex [B Complex] 1 each PO DAILY 01/22/13 [History] Vitamin E 400 unit PO DAILY 01/22/13 [History] Pantoprazole [ProTONIX] 40 mg PO DAILY 01/01/14 [History] metFORMIN HCl [Metformin HCl] 500 mg PO BID 01/22/14 [History] predniSONE [Prednisone] 5 mg PO DAILY 01/22/14 [History] metFORMIN [Glucophage] 250 mg PO ACLUNCH 01/15/17 [History] Cephalexin 500 mg PO BID #9 capsule 01/18/17 [Rx] Past Medical History HEENT History: Reports: Cataract, Hard of Hearing, Impaired Vision Cardiovascular History: Reports: Heart Murmur, Hypertension Gastrointestinal History: Reports: GERD Genitourinary History: Reports: Renal Calculus Musculoskeletal History: Reports: Back Pain, Chronic Other Musculoskeletal History: polymyalgia rheumatica Neurological History: Reports: Concussion Other Neuro History: short term memory loss Endocrine/Metabolic History: Reports: Diabetes, Type II Oncologic (Cancer) History: Reports: Other (See Below) Other Oncologic History: face, hands, lips - Infectious Disease History Infectious Disease History: Reports: C-Difficile, Measles, Mumps, Scarlet Fever - Past Surgical History Head Surgeries/Procedures: Reports: None HEENT Surgical History: Reports: Adenoidectomy, Cataract Surgery, Tonsillectomy Cardiovascular Surgical History: Reports: None GI Surgical History: Reports: Appendectomy, Colonoscopy, Hernia Repair/Other Male Surgical History: Reports: None Endocrine Surgical History: Reports: None Neurological Surgical History: Reports: None Musculoskeletal Surgical History: Reports: None Oncologic Surgical History: Reports: None Dermatological Surgical History: Reports: None Social & Family History - Family History Family Medical History: Noncontributory - Tobacco Use Smoking Status *Q: Former Smoker Years of Tobacco use: 2 Used Tobacco, but Quit: Yes Month Tobacco Last Used: 1975 Second Hand Smoke Exposure: No - Caffeine Use Caffeine Use: Reports: Coffee, Soda Other Caffeine Use: drinks 1-2 cups/day of coffee. - Alcohol Use Days Per Week of Alcohol Use: 0 - Recreational Drug Use Recreational Drug Use: No H&P Review of Systems - Review of Systems: Review Of Systems: Unable To Obtain General: Reports: ROS unobtainable (Dementia) Exam - Exam Exam: See Below - Vital Signs Vital Signs: Last Vital Signs Temp 97.6 F 02/06/17 16:30 Pulse 69 02/06/17 16:30 Resp 16 02/06/17 16:30 BP 116/51 L 02/06/17 16:30 Pulse Ox 92 L 02/06/17 16:30 Weight: 157 lb - Exam Quality Assessment: DVT Prophylaxis General: Sedated Neck: Supple, Trachea Midline, +2 Carotid Pulse wo Bruit Lungs: Clear to Auscultation, Normal Respiratory Effort Cardiovascular: Regular Rate, Regular Rhythm, Normal S1, Normal S2. No: Systolic Murmur, Diastolic Murmur GI/Abdominal Exam: Normal Bowel Sounds, Soft, Non-Tender, No Organomegaly, No Distention Extremities: Non-Tender, No Pedal Edema Skin: Warm, Dry - Patient Data Lab Results Last 24 hrs: Laboratory Results - last 24 hr 02/06/17 02/06/17 02/06/17 Range/Units 05:50 05:50 05:50 WBC 6.8 (4.5-11.0) K/uL RBC 4.68 (4.30-5.90) M/uL Hgb 13.6 D (12.0-15.0) g/dL Hct 43.3 (40.0-54.0) % MCV 93 (80-98) fL MCH 29 (27-31) pg MCHC 31 L (32-36) % Plt Count 164 (150-400) K/uL PT 10.7 (9.5-12.0) sec INR 1.00 (0.80-1.20) Sodium (140-148) mmol/L Potassium (3.6-5.2) mmol/L Chloride (100-108) mmol/L Carbon Dioxide (21-32) mmol/L Anion Gap (5.0-14.0) mmol/L BUN (7-18) mg/dL Creatinine (0.8-1.3) mg/dL Est Cr Clr Drug Dosing mL/min Estimated GFR (MDRD) (>60) Glucose (74-106) mg/dL Calcium (8.5-10.1) mg/dL Total Bilirubin (0.2-1.0) mg/dL AST (15-37) U/L ALT (12-78) U/L Alkaline Phosphatase (46-116) U/L Total Protein (6.4-8.2) g/dL Albumin (3.4-5.0) g/dL Globulin (2.3-3.5) g/dL Albumin/Globulin Ratio (1.2-2.2) Blood Type A NEGATIVE Gel Antibody Screen Negative 02/06/17 Range/Units 06:15 WBC (4.5-11.0) K/uL RBC (4.30-5.90) M/uL Hgb (12.0-15.0) g/dL Hct (40.0-54.0) % MCV (80-98) fL MCH (27-31) pg MCHC (32-36) % Plt Count (150-400) K/uL PT (9.5-12.0) sec INR (0.80-1.20) Sodium 143 (140-148) mmol/L Potassium 4.2 (3.6-5.2) mmol/L Chloride 106 (100-108) mmol/L Carbon Dioxide 29 (21-32) mmol/L Anion Gap 7.9 (5.0-14.0) mmol/L BUN 29 H (7-18) mg/dL Creatinine 1.5 H (0.8-1.3) mg/dL Est Cr Clr Drug Dosing 31.83 mL/min Estimated GFR (MDRD) 44 L (>60) Glucose 104 (74-106) mg/dL Calcium 9.3 (8.5-10.1) mg/dL Total Bilirubin 0.6 (0.2-1.0) mg/dL AST 28 (15-37) U/L ALT 34 (12-78) U/L Alkaline Phosphatase 44 L (46-116) U/L Total Protein 6.5 (6.4-8.2) g/dL Albumin 3.6 (3.4-5.0) g/dL Globulin 2.9 (2.3-3.5) g/dL Albumin/Globulin Ratio 1.2 (1.2-2.2) Blood Type Gel Antibody Screen Result Diagrams: 02/06/17 05:50 02/06/17 06:15 Consult PN Assessment/Plan Procedures: Procedures ASSAY OF CREATININE (04/07/14) ASSAY OF LACTIC ACID (01/15/17) ASSAY OF LIPASE (01/15/17) ASSAY OF MAGNESIUM (01/15/17) ASSAY OF PHOSPHORUS (01/15/17) BLOOD CULTURE FOR BACTERIA (01/15/17) BLOOD TYPING SEROLOGIC ABO (01/07/17) BLOOD TYPING SEROLOGIC RH(D) (01/07/17) C-REACTIVE PROTEIN (01/15/17) CHEST X-RAY 1 VIEW FRONTAL (01/15/17) COMPLETE CBC AUTOMATED (01/15/17) COMPLETE CBC W/AUTO DIFF WBC (01/15/17) COMPREHEN METABOLIC PANEL (01/15/17) CT HEAD/BRAIN W/O DYE (05/28/16) CT MAXILLOFACIAL W/O DYE (05/28/16) CT SFT TSUE NCK W/O & W/DYE (04/07/14) CULTURE OTHR SPECIMN AEROBIC (01/07/17) ELECTROCARDIOGRAM REPORT (01/22/14) ELECTROCARDIOGRAM TRACING (01/07/17) EMERGENCY DEPT VISIT (01/15/17) EMERGENCY DEPT VISIT (05/28/16) EXC F/E/E/N/L MAL+MRG 2.1-3 (01/04/14) EXTRACRANIAL BILAT STUDY (01/26/14) GLUCOSE BLOOD TEST (01/15/17) HYDRATE IV INFUSION ADD-ON (01/15/17) HYDRATION IV INFUSION INIT (01/15/17) INJ TRIGGER POINT 1/2 MUSCL (01/22/13) INJECT SPINE LUMBAR/SACRAL (05/12/15) INJECT TRIGGER POINTS 3/> (05/12/15) INTMD RPR FACE/MM 2.5 CM/< (01/04/14) MANUAL THERAPY 1/> REGIONS (10/25/16) MECHANICAL TRACTION THERAPY (10/25/16) METABOLIC PANEL TOTAL CA (01/15/17) MICROBE SUSCEPTIBLE DELORIS (01/15/17) MRI LUMBAR SPINE W/O DYE (12/26/16) NEUROMUSCULAR REEDUCATION (01/21/13) PT EVAL MOD COMPLEX 30 MIN (01/15/17) PT EVALUATION (01/21/13) RBC ANTIBODY SCREEN (01/07/17) RBC SED RATE NONAUTOMATED (01/22/14) ROUTINE VENIPUNCTURE (01/15/17) THERAPEUTIC ACTIVITIES (01/15/17) THERAPEUTIC EXERCISES (10/18/16) TISSUE EXAM BY PATHOLOGIST (01/04/14) ULTRASOUND THERAPY (10/25/16) URINALYSIS AUTO W/O SCOPE (01/07/17) URINALYSIS AUTO W/SCOPE (01/15/17) URINE BACTERIA CULTURE (01/15/17) URINE CULTURE/COLONY COUNT (01/15/17) X-RAY EXAM L-2 SPINE 4/>VWS (01/07/17) Problem List Initiated/Reviewed/Updated: Yes Plan: ASSESSMENT AND RECOMMENDATIONS STATUS POST LUMBAR LAMINECTOMY-stable during the initial postoperative period -Postop cares per Dr. Mansfield TYPE 2 DIABETES MELLITUS -4 times a day glucometers -Low-dose sliding scale NovoLog -Hold metformin until he is eating well and stable during the postoperative period POLYMYALGIA RHEUMATICA -Continue outpatient therapy with prednisone HYPERTENSION -Hold hydrochlorothiazide spironolactone, resume when stable postoperatively -Continue beta enoc therapy Requesting Provider: KOMAL Date Consult Requested: 02/06/17 Reason for Consult: Postoperative medical management Patient History Reviewed: Yes
[2017-02-06] MEDS: Metoprolol Tartrate 50 MG Tab PO SCH (21:56)
[2017-02-07] MEDS: Lactated Ringers 1,000 ML IV SCH ×3 (02:11→22:46)
[2017-02-07] MEDS: Pantoprazole 40 MG Tab.CR PO SCH (07:36)
[2017-02-07] MEDS: Metoprolol Tartrate 50 MG Tab PO SCH ×2 (08:05→20:48)
[2017-02-07] MEDS: oxyCODONE 5 MG Tab PO PRN (08:05)
[2017-02-07] MEDS: predniSONE 5 MG Tab PO SCH (08:06)
[2017-02-07] MEDS: Insulin Aspart 100 Units/ML 3 ML Pen SUBCUT SCH ×4 (08:26→20:51)
[2017-02-07] MEDS: VERIFY SCOPOLAMINE PATCH TOP SCH (08:26)
[2017-02-07] MEDS ORDERED: Acetaminophen/oxyCODONE 325-5 MG Tab PO PRN (10:00)
--- NOTE | 2017-02-07 10:12 | PCM.PN ---
- General Info Date of Service: 02/07/17 Admission Dx/Problem (Free Text): Patient is status postop day 1 of lumbar fusion. Orthopedically he is doing very well. He is sitting up in a chair with minimal pain at this time. Patient is very confused at this time. Quite agitated restless. He does note that his pain is under control at this time. Functional Status: Reports: Pain Controlled, Tolerating Diet, Ambulating - Patient Data Vitals - Most Recent: Last Vital Signs Temp 36.9 C 02/07/17 07:20 Pulse 78 02/07/17 08:05 Resp 16 02/07/17 07:20 BP 133/59 L 02/07/17 08:05 Pulse Ox 90 L 02/07/17 07:50 Weight - Most Recent: 157 lb I&O - Last 24 Hours: Intake & Output 02/06/17 02/07/17 02/07/17 22:59 06:59 14:59 Intake Total 2333 Output Total 155 130 80 Balance -155 2203 -80 Med Orders - Current: Current Medications Al Hydroxide/Mg Hydroxide (Mag-Al Plus) 30 ml PO Q4H PRN PRN Reason: Indigestion Dextrose (Glutose 15) 15 gm PO ONETIME PRN PRN Reason: Hypoglycemia Dextrose/Water (Dextrose 50% In Water) 50 ml IV ONETIME PRN PRN Reason: Hypoglycemia Lactated Ringer's (Ringers, Lactated) 1,000 mls @ 100 mls/hr IV ASDIRECTED [facility] Last Admin: 02/07/17 02:11 Dose: 100 mls/hr Insulin Aspart (Novolog) 0 unit SUBCUT QIDACANDBED [facility] PRN Reason: Protocol Last Admin: 02/07/17 08:26 Dose: Not Given Magnesium Hydroxide (Milk Of Magnesia) 30 ml PO BID PRN PRN Reason: Constipation Metoprolol Tartrate (Lopressor) 50 mg PO BID [facility] Last Admin: 02/07/17 08:05 Dose: 50 mg Naloxone HCl (Narcan) 0.2 mg IVPUSH ONETIME PRN PRN Reason: Oversedation Verify Scopolamine (Patch) 0 each TOP DAILY [facility] Last Admin: 02/07/17 08:26 Dose: Not Given Ondansetron HCl (Zofran) 8 mg IVPUSH Q4H PRN PRN Reason: Nausea/Vomiting Pantoprazole Sodium (Protonix) 40 mg PO DAILY@0730 [facility] Last Admin: 02/07/17 07:36 Dose: 40 mg Pravastatin Sodium (Pravachol) 20 mg PO SuTuThSa@0900 [facility] Prednisone (Prednisone) 5 mg PO DAILY [facility] Last Admin: 02/07/17 08:06 Dose: 5 mg Scopolamine (Transderm-Scop) 1.5 mg TOP Q72H [facility] Stop: 02/09/17 04:15 Last Admin: 02/06/17 06:11 Dose: 1.5 mg Senna (Senna) 8.6 mg PO BID PRN PRN Reason: Constipation Last Admin: 02/06/17 16:59 Dose: 8.6 mg Tramadol HCl (Ultram) 100 mg PO Q6H PRN PRN Reason: Pain Zolpidem Tartrate (Ambien) 5 mg PO BEDTIME PRN PRN Reason: Sleep Discontinued Medications Bupivacaine HCl/Epinephrine Bitart (Marcaine 0.5%/Epinephrine 1:200,000) Confirm Administered Dose 50 ml .ROUTE .STK-MED ONE Stop: 02/06/17 09:33 Ropivacaine 49.25 ml/Ketorolac Tromethamine 30 mg/Epinephrine HCl 0.5 mg/ Clonidine HCl 80 mcg/ Sodium Chloride 48.45 ml 0 ml INJECT ONETIME ONE Stop: 02/06/17 07:31 Last Admin: 02/06/17 15:14 Dose: Not Given Dexamethasone (Dexamethasone) Confirm Administered Dose 4 mg .ROUTE .STK-MED ONE Stop: 02/06/17 07:20 Diazepam (Valium.) 5 mg PO Q6H PRN PRN Reason: Spasms Ephedrine Sulfate (Ephedrine Sulfate) Confirm Administered Dose 50 mg .ROUTE .STK-MED ONE Stop: 02/06/17 07:46 Fentanyl (Sublimaze) Confirm Administered Dose 250 mcg .ROUTE .STK-MED ONE Stop: 02/06/17 07:20 Gabapentin (Neurontin) 300 mg PO ONETIME ONE Stop: 02/06/17 06:16 Last Admin: 02/06/17 06:11 Dose: 300 mg Hydromorphone HCl (Dilaudid) 1 mg IVPUSH Q2H PRN PRN Reason: Pain Stop: 02/07/17 10:00 Clindamycin Phosphate 900 mg/ (Sodium Chloride) 106 mls @ 200 mls/hr IV ONETIME ONE Stop: 02/06/17 08:01 Last Admin: 02/06/17 07:02 Dose: 200 mls/hr Tranexamic Acid 730 mg/ Sodium (Chloride) 57.3 mls @ 229.2 mls/hr IV Q3H [facility] Stop: 02/06/17 10:44 Last Admin: 02/06/17 10:15 Dose: 229.2 mls/hr Lactated Ringer's (Ringers, Lactated) Confirm Administered Dose 1,000 mls @ as directed .ROUTE .STK-MED ONE Stop: 02/06/17 08:27 Acetaminophen 1,000 mg/ Premix 100 mls @ 400 mls/hr IV ONETIME ONE Stop: 02/06/17 10:44 Last Admin: 02/06/17 10:21 Dose: 400 mls/hr Clindamycin Phosphate 600 mg/ (Sodium Chloride) 54 mls @ 100 mls/hr IV Q8H [facility] Stop: 02/07/17 02:33 Last Admin: 02/06/17 14:54 Dose: Not Given Clindamycin Phosphate 600 mg/ (Sodium Chloride) 54 mls @ 100 mls/hr IV Q8H [facility] Stop: 02/07/17 06:33 Last Admin: 02/07/17 06:20 Dose: 100 mls/hr Ketorolac Tromethamine (Toradol) Confirm Administered Dose 60 mg .ROUTE .STK- MED ONE Stop: 02/06/17 09:31 Ondansetron HCl (Zofran) Confirm Administered Dose 4 mg .ROUTE .STK-MED ONE Stop: 02/06/17 07:20 Oxycodone HCl (Oxycodone) 5 - 10 mg PO Q4H PRN PRN Reason: Pain Stop: 02/07/17 10:00 Last Admin: 02/07/17 08:05 Dose: 10 mg Oxycodone/Acetaminophen (Percocet 325-5 Mg) 0 tab PO Q4H PRN PRN Reason: Pain Povidone Iodine (Betadine 10% Soln) Confirm Administered Dose 1 ml .ROUTE .STK- MED ONE Stop: 02/06/17 06:53 Last Admin: 02/06/17 08:02 Dose: 40 ml Propofol (Diprivan 20 Ml) Confirm Administered Dose 200 mg .ROUTE .STK-MED ONE Stop: 02/06/17 07:20 Propofol (Diprivan 20 Ml) Confirm Administered Dose 400 mg .ROUTE .STK-MED ONE Stop: 02/06/17 07:49 Rocuronium [place] (Zemuron) Confirm Administered Dose 50 mg .ROUTE .STK-MED ONE Stop: 02/06/17 07:20 Thrombin (Thrombin-Jmi) Confirm Administered Dose 15,000 unit .ROUTE .STK-MED ONE Stop: 02/06/17 06:53 Last Admin: 02/06/17 08:02 Dose: 10,000 unit - Exam General: Alert, Other (confused) Back Exam: Normal Inspection, Full Range of Motion Extremities: Normal Inspection, Normal Range of Motion, No Pedal Edema, Normal Capillary Refill Peripheral Pulses: 2+: Dorsalis Pedis (L), Dorsalis Pedis (R) Skin: Warm, Dry, Intact Wound/Incisions: Healing Well, Dressing Dry and Intact Neurological: No New Focal Deficit Psy/Mental Status: Alert, Agitated, Hallucinations - Problem List Review Problem List Initiated/Reviewed/Updated: Yes - My Orders Last 24 Hours: My Active Orders 02/06/17 10:00 Patient Status [ADT] Urgent Ambulate [RC] QID Head of Bed Elevation [RC] ASDIRECTED Immobilizer [RC] ASDIRECTED Intake and Output [RC] QSHIFT Neurovascular Check [RC] Q4HR Notify Provider Intake and Out [RC] ASDIRECTED Notify Provider Laboratory Res [RC] ASDIRECTED Notify Provider Status Change [RC] ASDIRECTED Notify Provider Vital Signs [RC] ASDIRECTED Oxygen Therapy [RC] PRN Pulse Oximetry [RC] CONTINUOUS RT Incentive Spirometry [RC] ASDIRECTED Turn, Cough, Deep Breathe [RC] .PRN Up to Chair [RC] QID Wound Care [RC] Q12H Consult to Physician [CONS] Routine OT Evaluation and Treatment [CONS] Routine PT Evaluation and Treatment [CONS] Routine Alum Hydrox/Mag Hydrox/Simeth [Mag-Al Plus] 30 ml PO Q4H PRN Magnesium Hydroxide [Milk of Magnesia] 30 ml PO BID PRN Naloxone [Narcan] 0.2 mg IVPUSH ONETIME PRN Ondansetron [Zofran] 8 mg IVPUSH Q4H PRN Sennosides [Senna] 8.6 mg PO BID PRN Zolpidem [Ambien] 5 mg PO BEDTIME PRN Convert IV to Saline Lock [OM.PC] Routine Encourage Fluids [OM.PC] Routine Sequential Compression Device [OM.PC] Routine Sequential Compression Device [OM.PC] Stat Resuscitation Status Routine 02/06/17 10:02 Notify Provider Consults [RC] ASDIRECTED 02/06/17 Lunch Advance Diet Instructions [DIET] 02/07/17 08:36 traMADol [Ultram] 100 mg PO Q6H PRN 02/07/17 10:00 Urinary Catheter Removal [RC] Per Unit Routine 02/11/17 05:15 BASIC METABOLIC PANEL,BMP [CHEM] DAILY CBC WITH AUTO DIFF [HEME] DAILY 02/12/17 05:15 BASIC METABOLIC PANEL,BMP [CHEM] DAILY CBC WITH AUTO DIFF [HEME] DAILY 02/13/17 05:15 BASIC METABOLIC PANEL,BMP [CHEM] DAILY CBC WITH AUTO DIFF [HEME] DAILY 02/14/17 05:15 BASIC METABOLIC PANEL,BMP [CHEM] DAILY CBC WITH AUTO DIFF [HEME] DAILY 02/15/17 05:15 BASIC METABOLIC PANEL,BMP [CHEM] DAILY CBC WITH AUTO DIFF [HEME] DAILY - Plan Plan:: At this time due to his mental status I'm going to take him off his oral narcotics and switched to Ultram to see if he is doing okay. Hopefully he will become alert. I'm also going to DC has Ambien and start melatonin. We will continue to try to find a fpc facility that will accept him. He is to continue with pain management to assess if he needs further treatment. He'll continue to work with PT OT on strengthening.
[2017-02-07] MEDS: Pravastatin 20 MG Tab PO SCH (10:41)
[2017-02-07] MEDS: traMADol 50 MG Tab PO PRN ×2 (12:13→22:44)
[2017-02-07] MEDS: Haloperidol 1 MG Tab PO PRN ×2 (15:35→17:56)
[2017-02-07] MEDS: Divalproex Sodium Delayed-Release 250 MG Tab.CR PO SCH (16:40)
--- NOTE | 2017-02-07 18:46 | PCM.PN ---
- General Info Date of Service: 02/07/17 Subjective Update: Mr. Wong has unfortunately become more confused and developed agitated delirium. Urinalysis obtained today shows evidence of urinary tract infection. Vital signs have been stable but he has developed mild temperature elevation this evening. - Patient Data Vitals - Most Recent: Last Vital Signs Temp 99.5 F 02/07/17 15:24 Pulse 55 L 02/07/17 15:24 Resp 18 02/07/17 15:24 BP 119/59 L 02/07/17 15:24 Pulse Ox 96 02/07/17 15:24 Weight - Most Recent: 157 lb I&O - Last 24 Hours: Intake & Output 02/07/17 02/07/17 02/07/17 06:59 14:59 22:59 Intake Total 2333 1296 Output Total 130 355 Balance 2203 941 Lab Results Last 24 Hours: Laboratory Results - last 24 hr 02/07/17 Range/Units 15:11 Urine Color Red Urine Appearance Cloudy Urine pH 5.0 (4.5-8.0) Ur Specific [place] 1.025 (1.008-1.030) Urine Protein 100 H (NEGATIVE) mg/dL Urine Glucose (UA) Normal (NEGATIVE) mg/dL Urine Ketones Negative (NEGATIVE) mg/dL Urine Occult Blood Large (NEGATIVE) Urine Nitrite Negative (NEGAITVE) Urine Bilirubin Negative (NEGATIVE) Urine Urobilinogen 1 (NORMAL) mg/dL Ur Leukocyte Esterase Moderate (NEGATIVE) Urine RBC Packed H (0-5) Urine WBC 10-20 H (0-5) Ur Epithelial Cells Rare Amorphous Sediment Not seen Urine Bacteria Moderate Urine Mucus Not seen Med Orders - Current: Current Medications Al Hydroxide/Mg Hydroxide (Mag-Al Plus) 30 ml PO Q4H PRN PRN Reason: Indigestion Dextrose (Glutose 15) 15 gm PO ONETIME PRN PRN Reason: Hypoglycemia Dextrose/Water (Dextrose 50% In Water) 50 ml IV ONETIME PRN PRN Reason: Hypoglycemia Divalproex Sodium (Divalproex Sodium) 250 mg PO BIDMEALS [facility] Last Admin: 02/07/17 16:40 Dose: 250 mg Haloperidol (Haldol) 1 mg PO Q2H PRN PRN Reason: Agitation Last Admin: 02/07/17 17:56 Dose: 1 mg Haloperidol Lactate (Haldol) 1 mg IVPUSH Q1H PRN PRN Reason: Agitation Lactated Ringer's (Ringers, Lactated) 1,000 mls @ 100 mls/hr IV ASDIRECTED [facility] Last Admin: 02/07/17 12:14 Dose: 100 mls/hr Ceftriaxone Sodium 1 gm/ (Sodium Chloride) 50 mls @ 100 mls/hr IV Q24H [facility] Insulin Aspart (Novolog) 0 unit SUBCUT QIDACANDBED [facility] PRN Reason: Protocol Last Admin: 02/07/17 18:01 Dose: 1 units Magnesium Hydroxide (Milk Of Magnesia) 30 ml PO BID PRN PRN Reason: Constipation Melatonin (Melatonin) 9 mg PO BEDTIME [facility] Metoprolol Tartrate (Lopressor) 50 mg PO BID [facility] Last Admin: 02/07/17 08:05 Dose: 50 mg Naloxone HCl (Narcan) 0.2 mg IVPUSH ONETIME PRN PRN Reason: Oversedation Ondansetron HCl (Zofran) 8 mg IVPUSH Q4H PRN PRN Reason: Nausea/Vomiting Pantoprazole Sodium (Protonix) 40 mg PO DAILY@0730 [facility] Last Admin: 02/07/17 07:36 Dose: 40 mg Pravastatin Sodium (Pravachol) 20 mg PO SuTuThSa@0900 [facility] Last Admin: 02/07/17 10:41 Dose: 20 mg Prednisone (Prednisone) 5 mg PO DAILY [facility] Last Admin: 02/07/17 08:06 Dose: 5 mg Senna (Senna) 8.6 mg PO BID PRN PRN Reason: Constipation Last Admin: 02/06/17 16:59 Dose: 8.6 mg Tramadol HCl (Ultram) 100 mg PO Q6H PRN PRN Reason: Pain Last Admin: 02/07/17 12:13 Dose: 100 mg Zolpidem Tartrate (Ambien) 5 mg PO BEDTIME PRN PRN Reason: Sleep Discontinued Medications Bupivacaine HCl/Epinephrine Bitart (Marcaine 0.5%/Epinephrine 1:200,000) Confirm Administered Dose 50 ml .ROUTE .STK-MED ONE Stop: 02/06/17 09:33 Ropivacaine 49.25 ml/Ketorolac Tromethamine 30 mg/Epinephrine HCl 0.5 mg/ Clonidine HCl 80 mcg/ Sodium Chloride 48.45 ml 0 ml INJECT ONETIME ONE Stop: 02/06/17 07:31 Last Admin: 02/06/17 15:14 Dose: Not Given Dexamethasone (Dexamethasone) Confirm Administered Dose 4 mg .ROUTE .STK-MED ONE Stop: 02/06/17 07:20 Diazepam (Valium.) 5 mg PO Q6H PRN PRN Reason: Spasms Ephedrine Sulfate (Ephedrine Sulfate) Confirm Administered Dose 50 mg .ROUTE .STK-MED ONE Stop: 02/06/17 07:46 Fentanyl (Sublimaze) Confirm Administered Dose 250 mcg .ROUTE .STK-MED ONE Stop: 02/06/17 07:20 Gabapentin (Neurontin) 300 mg PO ONETIME ONE Stop: 02/06/17 06:16 Last Admin: 02/06/17 06:11 Dose: 300 mg Gelatin (Gelfoam) 2 gm .ROUTE .STK-MED ONE Stop: 02/06/17 08:01 Hydromorphone HCl (Dilaudid) 1 mg IVPUSH Q2H PRN PRN Reason: Pain Stop: 02/07/17 10:00 Clindamycin Phosphate 900 mg/ (Sodium Chloride) 106 mls @ 200 mls/hr IV ONETIME ONE Stop: 02/06/17 08:01 Last Admin: 02/06/17 07:02 Dose: 200 mls/hr Tranexamic Acid 730 mg/ Sodium (Chloride) 57.3 mls @ 229.2 mls/hr IV Q3H [facility] Stop: 02/06/17 10:44 Last Admin: 02/06/17 10:15 Dose: 229.2 mls/hr Lactated Ringer's (Ringers, Lactated) Confirm Administered Dose 1,000 mls @ as directed .ROUTE .STK-MED ONE Stop: 02/06/17 08:27 Acetaminophen 1,000 mg/ Premix 100 mls @ 400 mls/hr IV ONETIME ONE Stop: 02/06/17 10:44 Last Admin: 02/06/17 10:21 Dose: 400 mls/hr Clindamycin Phosphate 600 mg/ (Sodium Chloride) 54 mls @ 100 mls/hr IV Q8H [facility] Stop: 02/07/17 02:33 Last Admin: 02/06/17 14:54 Dose: Not Given Clindamycin Phosphate 600 mg/ (Sodium Chloride) 54 mls @ 100 mls/hr IV Q8H [facility] Stop: 02/07/17 06:33 Last Admin: 02/07/17 06:20 Dose: 100 mls/hr Ketorolac Tromethamine (Toradol) Confirm Administered Dose 60 mg .ROUTE .STK- MED ONE Stop: 02/06/17 09:31 Verify Scopolamine (Patch) 0 each TOP DAILY [facility] Last Admin: 02/07/17 08:26 Dose: Not Given Ondansetron HCl (Zofran) Confirm Administered Dose 4 mg .ROUTE .STK-MED ONE Stop: 02/06/17 07:20 Oxycodone HCl (Oxycodone) 5 - 10 mg PO Q4H PRN PRN Reason: Pain Stop: 02/07/17 10:00 Last Admin: 02/07/17 08:05 Dose: 10 mg Oxycodone/Acetaminophen (Percocet 325-5 Mg) 0 tab PO Q4H PRN PRN Reason: Pain Povidone Iodine (Betadine 10% Soln) Confirm Administered Dose 1 ml .ROUTE .STK- MED ONE Stop: 02/06/17 06:53 Last Admin: 02/06/17 08:02 Dose: 40 ml Propofol (Diprivan 20 Ml) Confirm Administered Dose 200 mg .ROUTE .STK-MED ONE Stop: 02/06/17 07:20 Propofol (Diprivan 20 Ml) Confirm Administered Dose 400 mg .ROUTE .STK-MED ONE Stop: 02/06/17 07:49 Rocuronium [place] (Zemuron) Confirm Administered Dose 50 mg .ROUTE .STK-MED ONE Stop: 02/06/17 07:20 Scopolamine (Transderm-Scop) 1.5 mg TOP Q72H [facility] Stop: 02/09/17 04:15 Last Admin: 02/06/17 06:11 Dose: 1.5 mg Thrombin (Thrombin-Jmi) Confirm Administered Dose 15,000 unit .ROUTE .STK-MED ONE Stop: 02/06/17 06:53 Last Admin: 02/06/17 08:02 Dose: 10,000 unit - Exam General: Other (Agitated) Lungs: Clear to Auscultation, Normal Respiratory Effort Cardiovascular: Regular Rate, Regular Rhythm, No Murmurs GI/Abdominal Exam: Normal Bowel Sounds, Soft, Non-Tender, No Organomegaly, No Distention Extremities: Non-Tender, No Pedal Edema Skin: Warm, Dry - Problem List Review Problem List Initiated/Reviewed/Updated: Yes - My Orders Last 24 Hours: My Active Orders 02/07/17 15:24 Haloperidol [Haldol] 1 mg PO Q2H PRN 02/07/17 17:00 Divalproex Sodium 250 mg PO BIDMEALS 02/07/17 18:41 CULTURE URINE [RM] Stat 02/07/17 18:43 Haloperidol Lactate [Haldol] 1 mg IVPUSH Q1H PRN 02/07/17 18:45 cefTRIAXone [Rocephin] 1 gm Sodium Chloride 0.9% [Normal Saline] 50 ml IV Q24H 02/07/17 21:00 Melatonin 9 mg PO BEDTIME 02/08/17 05:00 BASIC METABOLIC PANEL,BMP [CHEM] Timed CBC WITH AUTO DIFF [HEME] Timed MAGNESIUM [CHEM] Timed - Plan Plan:: ASSESSMENT AND RECOMMENDATIONS STATUS POST LUMBAR LAMINECTOMY-stable during the initial postoperative period -Postop cares per Dr. Mansfield AGITATED DELIRIUM-through the day today has become more agitated and confused -Melatonin 9 mg by mouth daily at bedtime -Depakote 250 mg by mouth twice a day -Haldol 1 mg IV every hour hour as needed for agitation URINARY TRACT INFECTION WITH URINARY RETENTION -Urine culture pending -Rocephin 1 g IV every 24 hours pending culture results TYPE 2 DIABETES MELLITUS -4 times a day glucometers -Low-dose sliding scale NovoLog -Hold metformin until he is eating well and stable during the postoperative period POLYMYALGIA RHEUMATICA -Continue outpatient therapy with prednisone HYPERTENSION -Hold hydrochlorothiazide spironolactone, resume when stable postoperatively -Continue beta enoc therapy Requesting Provider: KOMAL Date Consult Requested: 02/06/17 Reason for Consult: Postoperative medical management Patient History Reviewed: Yes
[2017-02-07] MEDS: Haloperidol Lactate 5 MG/ML SDV IVPUSH PRN ×3 (19:10→22:45)
[2017-02-07] MEDS: Tamsulosin 0.4 MG Cap.ER PO SCH (20:48)
[2017-02-07] MEDS: Melatonin 3 MG Tab PO SCH (20:48)
[2017-02-07] MEDS: cefTRIAXone 1 GM in Sodium Chloride 0.9% 50 ML IV SCH (20:48)
[2017-02-07] MEDS ORDERED: Lidocaine 2% Jelly 10 ML Urojet MUCMEM ONE (22:17)
[2017-02-07] MEDS: Sennosides 8.6 MG Tab PO PRN (22:44)
[2017-02-07] MEDS ORDERED: Acetaminophen 650 MG Supp RECTAL PRN (23:14)
--- NOTE | 2017-02-08 00:16 | PCM.SN ---
- Free Text/Narrative Note: time 20:13; call from [address] [place] [address]; O: Mr. Wong is restless, agitation, unable to void bladder scan >800ml A: urinary retention P: insert Kaur cath. will re-assess in am.
[2017-02-08] MEDS: Haloperidol Lactate 5 MG/ML SDV IVPUSH PRN ×2 (02:13→16:59)
[2017-02-08] MEDS: Acetaminophen 325 MG Tab PO PRN ×3 (02:16→15:09)
[2017-02-08] MEDS: Pantoprazole 40 MG Tab.CR PO SCH (07:26)
[2017-02-08] MEDS: Insulin Aspart 100 Units/ML 3 ML Pen SUBCUT SCH ×4 (08:22→20:44)
--- NOTE | 2017-02-08 08:41 | PCM.PN ---
- General Info Date of Service: 02/08/17 Functional Status: Reports: Pain Controlled, Tolerating Diet, Ambulating - Patient Data Vitals - Most Recent: Last Vital Signs Temp 37.1 C 02/08/17 07:13 Pulse 89 02/08/17 07:13 Resp 16 02/08/17 07:13 BP 157/67 H 02/08/17 07:13 Pulse Ox 93 L 02/08/17 07:13 Weight - Most Recent: 157 lb I&O - Last 24 Hours: Intake & Output 02/07/17 02/08/17 02/08/17 22:59 06:59 14:59 Intake Total 1691 Output Total 750 550 Balance -750 1141 Lab Results Last 24 Hours: Laboratory Results - last 24 hr 02/07/17 02/08/17 02/08/17 Range/Units 15:11 05:59 05:59 WBC 8.1 (4.5-11.0) K/uL RBC 3.36 L (4.30-5.90) M/uL Hgb 10.1 L D (12.0-15.0) g/dL Hct 31.5 L (40.0-54.0) % MCV 94 (80-98) fL MCH 30 (27-31) pg MCHC 32 (32-36) % Plt Count 97 L (150-400) K/uL Neut % (Auto) 75 H (36-66) % Lymph % (Auto) 15 L (24-44) % [place] % (Auto) 7 H (2-6) % Eos % (Auto) 2 (2-4) % Baso % (Auto) 0 (0-1) % Sodium 139 L (140-148) mmol/L Potassium 4.1 (3.6-5.2) mmol/L Chloride 104 (100-108) mmol/L Carbon Dioxide 31 (21-32) mmol/L Anion Gap 8.1 (5.0-14.0) mmol/L BUN 18 (7-18) mg/dL Creatinine 1.1 (0.8-1.3) mg/dL Est Cr Clr Drug Dosing 43.29 mL/min Estimated GFR (MDRD) > 60 (>60) Glucose 92 (74-106) mg/dL Calcium 8.4 L (8.5-10.1) mg/dL Magnesium 1.6 L (1.8-2.4) mg/dL Urine Color Red Urine Appearance Cloudy Urine pH 5.0 (4.5-8.0) Ur Specific [place] 1.025 (1.008-1.030) Urine Protein 100 H (NEGATIVE) mg/dL Urine Glucose (UA) Normal (NEGATIVE) mg/dL Urine Ketones Negative (NEGATIVE) mg/dL Urine Occult Blood Large (NEGATIVE) Urine Nitrite Negative (NEGAITVE) Urine Bilirubin Negative (NEGATIVE) Urine Urobilinogen 1 (NORMAL) mg/dL Ur Leukocyte Esterase Moderate (NEGATIVE) Urine RBC Packed H (0-5) Urine WBC 10-20 H (0-5) Ur Epithelial Cells Rare Amorphous Sediment Not seen Urine Bacteria Moderate Urine Mucus Not seen Med Orders - Current: Current Medications Acetaminophen (Tylenol) 650 mg PO Q4H PRN PRN Reason: fever/pain Last Admin: 02/08/17 02:16 Dose: 650 mg Acetaminophen (Tylenol) 650 mg RECTAL Q4H PRN PRN Reason: Fever Al Hydroxide/Mg Hydroxide (Mag-Al Plus) 30 ml PO Q4H PRN PRN Reason: Indigestion Dextrose (Glutose 15) 15 gm PO ONETIME PRN PRN Reason: Hypoglycemia Dextrose/Water (Dextrose 50% In Water) 50 ml IV ONETIME PRN PRN Reason: Hypoglycemia Divalproex Sodium (Divalproex Sodium) 250 mg PO BIDMEALS [facility] Last Admin: 02/07/17 16:40 Dose: 250 mg Haloperidol (Haldol) 1 mg PO Q2H PRN PRN Reason: Agitation Last Admin: 02/07/17 17:56 Dose: 1 mg Haloperidol Lactate (Haldol) 1 mg IVPUSH Q1H PRN PRN Reason: Agitation Last Admin: 02/08/17 02:13 Dose: 1 mg Lactated Ringer's (Ringers, Lactated) 1,000 mls @ 100 mls/hr IV ASDIRECTED [facility] Last Admin: 02/07/17 22:46 Dose: 100 mls/hr Ceftriaxone Sodium 1 gm/ (Sodium Chloride) 50 mls @ 100 mls/hr IV Q24H [facility] Last Admin: 02/07/17 20:48 Dose: 100 mls/hr Magnesium Sulfate 2 gm/ Premix 50 mls @ 25 mls/hr IV ONETIME ONE Stop: 02/08/17 11:59 Insulin Aspart (Novolog) 0 unit SUBCUT QIDACANDBED [facility] PRN Reason: Protocol Last Admin: 02/08/17 08:22 Dose: Not Given Magnesium Hydroxide (Milk Of Magnesia) 30 ml PO BID PRN PRN Reason: Constipation Magnesium Oxide (Magnesium Oxide) 400 mg PO BID [facility] Melatonin (Melatonin) 9 mg PO BEDTIME [facility] Last Admin: 02/07/17 20:48 Dose: 9 mg Metoprolol Tartrate (Lopressor) 50 mg PO BID [facility] Last Admin: 02/07/17 20:48 Dose: 50 mg Naloxone HCl (Narcan) 0.2 mg IVPUSH ONETIME PRN PRN Reason: Oversedation Ondansetron HCl (Zofran) 8 mg IVPUSH Q4H PRN PRN Reason: Nausea/Vomiting Pantoprazole Sodium (Protonix) 40 mg PO DAILY@0730 [facility] Last Admin: 02/08/17 07:26 Dose: 40 mg Pravastatin Sodium (Pravachol) 20 mg PO SuTuThSa@0900 [facility] Last Admin: 02/07/17 10:41 Dose: 20 mg Prednisone (Prednisone) 5 mg PO DAILY [facility] Last Admin: 02/07/17 08:06 Dose: 5 mg Senna (Senna) 8.6 mg PO BID PRN PRN Reason: Constipation Last Admin: 02/07/17 22:44 Dose: 8.6 mg Tamsulosin HCl (Flomax) 0.4 mg PO BEDTIME [facility] Last Admin: 02/07/17 20:48 Dose: 0.4 mg Tramadol HCl (Ultram) 100 mg PO Q6H PRN PRN Reason: Pain Last Admin: 02/07/17 22:44 Dose: 100 mg Discontinued Medications Bupivacaine HCl/Epinephrine Bitart (Marcaine 0.5%/Epinephrine 1:200,000) Confirm Administered Dose 50 ml .ROUTE .STK-MED ONE Stop: 02/06/17 09:33 Ropivacaine 49.25 ml/Ketorolac Tromethamine 30 mg/Epinephrine HCl 0.5 mg/ Clonidine HCl 80 mcg/ Sodium Chloride 48.45 ml 0 ml INJECT ONETIME ONE Stop: 02/06/17 07:31 Last Admin: 02/06/17 15:14 Dose: Not Given Dexamethasone (Dexamethasone) Confirm Administered Dose 4 mg .ROUTE .STK-MED ONE Stop: 02/06/17 07:20 Diazepam (Valium.) 5 mg PO Q6H PRN PRN Reason: Spasms Ephedrine Sulfate (Ephedrine Sulfate) Confirm Administered Dose 50 mg .ROUTE .STK-MED ONE Stop: 02/06/17 07:46 Fentanyl (Sublimaze) Confirm Administered Dose 250 mcg .ROUTE .STK-MED ONE Stop: 02/06/17 07:20 Gabapentin (Neurontin) 300 mg PO ONETIME ONE Stop: 02/06/17 06:16 Last Admin: 02/06/17 06:11 Dose: 300 mg Gelatin (Gelfoam) 2 gm .ROUTE .STK-MED ONE Stop: 02/06/17 08:01 Hydromorphone HCl (Dilaudid) 1 mg IVPUSH Q2H PRN PRN Reason: Pain Stop: 02/07/17 10:00 Clindamycin Phosphate 900 mg/ (Sodium Chloride) 106 mls @ 200 mls/hr IV ONETIME ONE Stop: 02/06/17 08:01 Last Admin: 02/06/17 07:02 Dose: 200 mls/hr Tranexamic Acid 730 mg/ Sodium (Chloride) 57.3 mls @ 229.2 mls/hr IV Q3H [facility] Stop: 02/06/17 10:44 Last Admin: 02/06/17 10:15 Dose: 229.2 mls/hr Lactated Ringer's (Ringers, Lactated) Confirm Administered Dose 1,000 mls @ as directed .ROUTE .STK-MED ONE Stop: 02/06/17 08:27 Acetaminophen 1,000 mg/ Premix 100 mls @ 400 mls/hr IV ONETIME ONE Stop: 02/06/17 10:44 Last Admin: 02/06/17 10:21 Dose: 400 mls/hr Clindamycin Phosphate 600 mg/ (Sodium Chloride) 54 mls @ 100 mls/hr IV Q8H [facility] Stop: 02/07/17 02:33 Last Admin: 02/06/17 14:54 Dose: Not Given Clindamycin Phosphate 600 mg/ (Sodium Chloride) 54 mls @ 100 mls/hr IV Q8H [facility] Stop: 02/07/17 06:33 Last Admin: 02/07/17 06:20 Dose: 100 mls/hr Ketorolac Tromethamine (Toradol) Confirm Administered Dose 60 mg .ROUTE .STK- MED ONE Stop: 02/06/17 09:31 Lidocaine HCl (Xylocaine 2% Jelly) 10 ml MUCMEM ONETIME ONE Stop: 02/07/17 22:18 Last Admin: 02/07/17 22:26 Dose: 10 ml Verify Scopolamine (Patch) 0 each TOP DAILY [facility] Last Admin: 02/07/17 08:26 Dose: Not Given Ondansetron HCl (Zofran) Confirm Administered Dose 4 mg .ROUTE .STK-MED ONE Stop: 02/06/17 07:20 Oxycodone HCl (Oxycodone) 5 - 10 mg PO Q4H PRN PRN Reason: Pain Stop: 02/07/17 10:00 Last Admin: 02/07/17 08:05 Dose: 10 mg Oxycodone/Acetaminophen (Percocet 325-5 Mg) 0 tab PO Q4H PRN PRN Reason: Pain Povidone Iodine (Betadine 10% Soln) Confirm Administered Dose 1 ml .ROUTE .STK- MED ONE Stop: 02/06/17 06:53 Last Admin: 02/06/17 08:02 Dose: 40 ml Propofol (Diprivan 20 Ml) Confirm Administered Dose 200 mg .ROUTE .STK-MED ONE Stop: 02/06/17 07:20 Propofol (Diprivan 20 Ml) Confirm Administered Dose 400 mg .ROUTE .STK-MED ONE Stop: 02/06/17 07:49 Rocuronium [place] (Zemuron) Confirm Administered Dose 50 mg .ROUTE .STK-MED ONE Stop: 02/06/17 07:20 Scopolamine (Transderm-Scop) 1.5 mg TOP Q72H [facility] Stop: 02/09/17 04:15 Last Admin: 02/06/17 06:11 Dose: 1.5 mg Thrombin (Thrombin-Jmi) Confirm Administered Dose 15,000 unit .ROUTE .STK-MED ONE Stop: 02/06/17 06:53 Last Admin: 02/06/17 08:02 Dose: 10,000 unit Zolpidem Tartrate (Ambien) 5 mg PO BEDTIME PRN PRN Reason: Sleep - Exam General: Alert, Oriented Back Exam: Normal Inspection Extremities: Normal Inspection, Normal Range of Motion, No Pedal Edema, Normal Capillary Refill Peripheral Pulses: 2+: Dorsalis Pedis (L), Dorsalis Pedis (R) Skin: Warm, Dry, Intact Wound/Incisions: Healing Well, Dressing Dry and Intact Neurological: No New Focal Deficit Psy/Mental Status: Alert, Normal Affect - Problem List Review Problem List Initiated/Reviewed/Updated: Yes - My Orders Last 24 Hours: My Active Orders 02/07/17 08:36 traMADol [Ultram] 100 mg PO Q6H PRN 02/11/17 05:15 BASIC METABOLIC PANEL,BMP [CHEM] DAILY CBC WITH AUTO DIFF [HEME] DAILY 02/12/17 05:15 BASIC METABOLIC PANEL,BMP [CHEM] DAILY CBC WITH AUTO DIFF [HEME] DAILY 02/13/17 05:15 BASIC METABOLIC PANEL,BMP [CHEM] DAILY CBC WITH AUTO DIFF [HEME] DAILY 02/14/17 05:15 BASIC METABOLIC PANEL,BMP [CHEM] DAILY CBC WITH AUTO DIFF [HEME] DAILY 02/15/17 05:15 BASIC METABOLIC PANEL,BMP [CHEM] DAILY CBC WITH AUTO DIFF [HEME] DAILY - Plan Plan:: ASSESSMENT AND RECOMMENDATIONS STATUS POST LUMBAR LAMINECTOMY- status postop day 2 of a lumbar He is doing very well. Patient is less confused today. We will continue to look for retirement placement for him. Dr. Pruett is managing his UTI at this time. We will reassess tomorrow.
[2017-02-08] MEDS: traMADol 50 MG Tab PO PRN (08:43)
[2017-02-08] MEDS: Metoprolol Tartrate 50 MG Tab PO SCH ×2 (08:43→20:36)
[2017-02-08] MEDS: predniSONE 5 MG Tab PO SCH (08:44)
[2017-02-08] MEDS: Magnesium Oxide 400 MG Tab PO SCH ×2 (08:44→20:35)
[2017-02-08] MEDS: Divalproex Sodium Delayed-Release 250 MG Tab.CR PO SCH ×2 (08:44→16:51)
[2017-02-08] MEDS ORDERED: Magnesium Sulfate/Water 2 GM in Premix Bag 1 BAG IV ONE (10:00)
[2017-02-08] MEDS: Lactated Ringers 1,000 ML IV SCH (10:39)
[2017-02-08] MEDS: Haloperidol 1 MG Tab PO PRN ×3 (10:40→18:24)
[2017-02-08] MEDS: Sennosides 8.6 MG Tab PO PRN (11:45)
[2017-02-08] MEDS: Magnesium Hydroxide 400 MG/5 ML Susp 30 ML Cup PO PRN (11:45)
[2017-02-08] MEDS: cefTRIAXone 1 GM in Sodium Chloride 0.9% 50 ML IV SCH (17:06)
--- NOTE | 2017-02-08 17:37 | PCM.PN ---
- General Info Date of Service: 02/08/17 Subjective Update: Mr. Wong is improved since yesterday with less confusion and agitation. He was found to have recurrent urinary retention, after Kaur catheter was replaced agitation is improved significantly. Still is confused from baseline, vital signs have been stable and he has remained afebrile. - Review of Systems Psychiatric: Reports: Confusion, Agitation - Patient Data Vitals - Most Recent: Last Vital Signs Temp 97.2 F 02/08/17 11:12 Pulse 54 L 02/08/17 11:12 Resp 16 02/08/17 11:12 BP 102/42 L 02/08/17 11:12 Pulse Ox 97 02/08/17 11:12 Weight - Most Recent: 157 lb I&O - Last 24 Hours: Intake & Output 02/08/17 02/08/17 02/08/17 06:59 14:59 22:59 Intake Total 1691 50 Output Total 550 Balance 1141 50 Lab Results Last 24 Hours: Laboratory Results - last 24 hr 02/08/17 02/08/17 Range/Units 05:59 05:59 WBC 8.1 (4.5-11.0) K/uL RBC 3.36 L (4.30-5.90) M/uL Hgb 10.1 L D (12.0-15.0) g/dL Hct 31.5 L (40.0-54.0) % MCV 94 (80-98) fL MCH 30 (27-31) pg MCHC 32 (32-36) % Plt Count 97 L (150-400) K/uL Neut % (Auto) 75 H (36-66) % Lymph % (Auto) 15 L (24-44) % [place] % (Auto) 7 H (2-6) % Eos % (Auto) 2 (2-4) % Baso % (Auto) 0 (0-1) % Sodium 139 L (140-148) mmol/L Potassium 4.1 (3.6-5.2) mmol/L Chloride 104 (100-108) mmol/L Carbon Dioxide 31 (21-32) mmol/L Anion Gap 8.1 (5.0-14.0) mmol/L BUN 18 (7-18) mg/dL Creatinine 1.1 (0.8-1.3) mg/dL Est Cr Clr Drug Dosing 43.29 mL/min Estimated GFR (MDRD) > 60 (>60) Glucose 92 (74-106) mg/dL Calcium 8.4 L (8.5-10.1) mg/dL Magnesium 1.6 L (1.8-2.4) mg/dL Med Orders - Current: Current Medications Acetaminophen (Tylenol) 650 mg PO Q4H PRN PRN Reason: fever/pain Last Admin: 02/08/17 15:09 Dose: 650 mg Acetaminophen (Tylenol) 650 mg RECTAL Q4H PRN PRN Reason: Fever Al Hydroxide/Mg Hydroxide (Mag-Al Plus) 30 ml PO Q4H PRN PRN Reason: Indigestion Dextrose (Glutose 15) 15 gm PO ONETIME PRN PRN Reason: Hypoglycemia Dextrose/Water (Dextrose 50% In Water) 50 ml IV ONETIME PRN PRN Reason: Hypoglycemia Divalproex Sodium (Divalproex Sodium) 250 mg PO BIDMEALS [facility] Last Admin: 02/08/17 16:51 Dose: 250 mg Haloperidol (Haldol) 1 mg PO Q2H PRN PRN Reason: Agitation Last Admin: 02/08/17 15:10 Dose: 1 mg Haloperidol Lactate (Haldol) 1 mg IVPUSH Q1H PRN PRN Reason: Agitation Last Admin: 02/08/17 16:59 Dose: 1 mg Lactated Ringer's (Ringers, Lactated) 1,000 mls @ 100 mls/hr IV ASDIRECTED [facility] Last Admin: 02/08/17 10:39 Dose: 100 mls/hr Ceftriaxone Sodium 1 gm/ (Sodium Chloride) 50 mls @ 100 mls/hr IV Q24H [facility] Last Admin: 02/08/17 17:06 Dose: 100 mls/hr Insulin Aspart (Novolog) 0 unit SUBCUT QIDACANDBED [facility] PRN Reason: Protocol Last Admin: 02/08/17 16:50 Dose: 2 units Magnesium Hydroxide (Milk Of Magnesia) 30 ml PO BID PRN PRN Reason: Constipation Last Admin: 02/08/17 11:45 Dose: 30 ml Magnesium Oxide (Magnesium Oxide) 400 mg PO BID [facility] Last Admin: 02/08/17 08:44 Dose: 400 mg Melatonin (Melatonin) 9 mg PO BEDTIME [facility] Last Admin: 02/07/17 20:48 Dose: 9 mg Metoprolol Tartrate (Lopressor) 50 mg PO BID [facility] Last Admin: 02/08/17 08:43 Dose: 50 mg Naloxone HCl (Narcan) 0.2 mg IVPUSH ONETIME PRN PRN Reason: Oversedation Ondansetron HCl (Zofran) 8 mg IVPUSH Q4H PRN PRN Reason: Nausea/Vomiting Pantoprazole Sodium (Protonix) 40 mg PO DAILY@0730 [facility] Last Admin: 02/08/17 07:26 Dose: 40 mg Pravastatin Sodium (Pravachol) 20 mg PO SuTuThSa@0900 [facility] Last Admin: 02/07/17 10:41 Dose: 20 mg Prednisone (Prednisone) 5 mg PO DAILY [facility] Last Admin: 02/08/17 08:44 Dose: 5 mg Senna (Senna) 8.6 mg PO BID PRN PRN Reason: Constipation Last Admin: 02/08/17 11:45 Dose: 8.6 mg Tamsulosin HCl (Flomax) 0.4 mg PO BEDTIME [facility] Last Admin: 02/07/17 20:48 Dose: 0.4 mg Tramadol HCl (Ultram) 100 mg PO Q6H PRN PRN Reason: Pain Last Admin: 02/08/17 08:43 Dose: 100 mg Discontinued Medications Bupivacaine HCl/Epinephrine Bitart (Marcaine 0.5%/Epinephrine 1:200,000) Confirm Administered Dose 50 ml .ROUTE .STK-MED ONE Stop: 02/06/17 09:33 Ropivacaine 49.25 ml/Ketorolac Tromethamine 30 mg/Epinephrine HCl 0.5 mg/ Clonidine HCl 80 mcg/ Sodium Chloride 48.45 ml 0 ml INJECT ONETIME ONE Stop: 02/06/17 07:31 Last Admin: 02/06/17 15:14 Dose: Not Given Dexamethasone (Dexamethasone) Confirm Administered Dose 4 mg .ROUTE .STK-MED ONE Stop: 02/06/17 07:20 Diazepam (Valium.) 5 mg PO Q6H PRN PRN Reason: Spasms Ephedrine Sulfate (Ephedrine Sulfate) Confirm Administered Dose 50 mg .ROUTE .STK-MED ONE Stop: 02/06/17 07:46 Fentanyl (Sublimaze) Confirm Administered Dose 250 mcg .ROUTE .STK-MED ONE Stop: 02/06/17 07:20 Gabapentin (Neurontin) 300 mg PO ONETIME ONE Stop: 02/06/17 06:16 Last Admin: 02/06/17 06:11 Dose: 300 mg Gelatin (Gelfoam) 2 gm .ROUTE .STK-MED ONE Stop: 02/06/17 08:01 Hydromorphone HCl (Dilaudid) 1 mg IVPUSH Q2H PRN PRN Reason: Pain Stop: 02/07/17 10:00 Clindamycin Phosphate 900 mg/ (Sodium Chloride) 106 mls @ 200 mls/hr IV ONETIME ONE Stop: 02/06/17 08:01 Last Admin: 02/06/17 07:02 Dose: 200 mls/hr Tranexamic Acid 730 mg/ Sodium (Chloride) 57.3 mls @ 229.2 mls/hr IV Q3H [facility] Stop: 02/06/17 10:44 Last Admin: 02/06/17 10:15 Dose: 229.2 mls/hr Lactated Ringer's (Ringers, Lactated) Confirm Administered Dose 1,000 mls @ as directed .ROUTE .STK-MED ONE Stop: 02/06/17 08:27 Acetaminophen 1,000 mg/ Premix 100 mls @ 400 mls/hr IV ONETIME ONE Stop: 02/06/17 10:44 Last Admin: 02/06/17 10:21 Dose: 400 mls/hr Clindamycin Phosphate 600 mg/ (Sodium Chloride) 54 mls @ 100 mls/hr IV Q8H [facility] Stop: 02/07/17 02:33 Last Admin: 02/06/17 14:54 Dose: Not Given Clindamycin Phosphate 600 mg/ (Sodium Chloride) 54 mls @ 100 mls/hr IV Q8H [facility] Stop: 02/07/17 06:33 Last Admin: 02/07/17 06:20 Dose: 100 mls/hr Magnesium Sulfate 2 gm/ Premix 50 mls @ 25 mls/hr IV ONETIME ONE Stop: 02/08/17 11:59 Last Admin: 02/08/17 09:32 Dose: 25 mls/hr Ketorolac Tromethamine (Toradol) Confirm Administered Dose 60 mg .ROUTE .STK- MED ONE Stop: 02/06/17 09:31 Lidocaine HCl (Xylocaine 2% Jelly) 10 ml MUCMEM ONETIME ONE Stop: 02/07/17 22:18 Last Admin: 02/07/17 22:26 Dose: 10 ml Verify Scopolamine (Patch) 0 each TOP DAILY [facility] Last Admin: 02/07/17 08:26 Dose: Not Given Ondansetron HCl (Zofran) Confirm Administered Dose 4 mg .ROUTE .STK-MED ONE Stop: 02/06/17 07:20 Oxycodone HCl (Oxycodone) 5 - 10 mg PO Q4H PRN PRN Reason: Pain Stop: 02/07/17 10:00 Last Admin: 02/07/17 08:05 Dose: 10 mg Oxycodone/Acetaminophen (Percocet 325-5 Mg) 0 tab PO Q4H PRN PRN Reason: Pain Povidone Iodine (Betadine 10% Soln) Confirm Administered Dose 1 ml .ROUTE .STK- MED ONE Stop: 02/06/17 06:53 Last Admin: 02/06/17 08:02 Dose: 40 ml Propofol (Diprivan 20 Ml) Confirm Administered Dose 200 mg .ROUTE .STK-MED ONE Stop: 02/06/17 07:20 Propofol (Diprivan 20 Ml) Confirm Administered Dose 400 mg .ROUTE .STK-MED ONE Stop: 02/06/17 07:49 Rocuronium [place] (Zemuron) Confirm Administered Dose 50 mg .ROUTE .STK-MED ONE Stop: 02/06/17 07:20 Scopolamine (Transderm-Scop) 1.5 mg TOP Q72H [facility] Stop: 02/09/17 04:15 Last Admin: 02/06/17 06:11 Dose: 1.5 mg Thrombin (Thrombin-Jmi) Confirm Administered Dose 15,000 unit .ROUTE .STK-MED ONE Stop: 02/06/17 06:53 Last Admin: 02/06/17 08:02 Dose: 10,000 unit Zolpidem Tartrate (Ambien) 5 mg PO BEDTIME PRN PRN Reason: Sleep - Exam General: Alert, Mild Distress Neck: Supple Lungs: Clear to Auscultation, Normal Respiratory Effort Cardiovascular: Regular Rate, Regular Rhythm, No Murmurs GI/Abdominal Exam: Normal Bowel Sounds, Soft, Non-Tender, No Organomegaly, No Distention Extremities: Non-Tender, No Pedal Edema Skin: Warm, Dry - Problem List & Annotations (1) Status post lumbar spinal fusion SNOMED Code(s): 15240282939957, 37065531006492 Code(s): Z98.1 - ARTHRODESIS STATUS Status: Acute Current Visit: Yes Annotation/Comment:: L4 - S1 (2) Dementia SNOMED Code(s): 91379502 Code(s): F03.90 - UNSPECIFIED DEMENTIA WITHOUT BEHAVIORAL DISTURBANCE Status: Chronic Current Visit: No Qualifiers: Dementia type: unspecified type Dementia behavioral disturbance: without behavioral disturbance Qualified Code(s): F03.90 - Unspecified dementia without behavioral disturbance (3) Lumbar stenosis SNOMED Code(s): 75953159 Code(s): M48.061 - SPINAL STENOSIS, LUMBAR REGION WITHOUT NEUROGENIC RAZIA Status: Chronic Current Visit: No Qualifiers: Neurogenic claudication status: with neurogenic claudication Qualified Code (s): M48.062 - Spinal stenosis, lumbar region with neurogenic claudication (4) Type 2 diabetes mellitus SNOMED Code(s): 05069761 Code(s): E11.9 - TYPE 2 DIABETES MELLITUS WITHOUT COMPLICATIONS Status: Chronic Current Visit: No Qualifiers: Diabetes mellitus complication status: without complication Diabetes mellitus usp insulin use: without usp use Qualified Code(s): E11.9 - Type 2 diabetes mellitus without complications - Problem List Review Problem List Initiated/Reviewed/Updated: Yes - My Orders Last 24 Hours: My Active Orders 02/07/17 17:00 Divalproex Sodium 250 mg PO BIDMEALS 02/07/17 18:00 cefTRIAXone [Rocephin] 1 gm Sodium Chloride 0.9% [Normal Saline] 50 ml IV Q24H 02/07/17 18:43 Haloperidol Lactate [Haldol] 1 mg IVPUSH Q1H PRN 02/07/17 21:00 Melatonin 9 mg PO BEDTIME Tamsulosin [Flomax] 0.4 mg PO BEDTIME 02/07/17 22:17 CULTURE URINE [RM] Stat 02/08/17 09:00 Magnesium Oxide 400 mg PO BID - Plan Plan:: ASSESSMENT AND RECOMMENDATIONS STATUS POST LUMBAR LAMINECTOMY-stable -Postop cares per Dr. Mansfield AGITATED remains confused but agitation has improved significantly -Melatonin 9 mg by mouth daily at bedtime -Depakote 250 mg by mouth twice a day -Haldol 1 mg IV every hour hour as needed for agitation URINARY TRACT INFECTION WITH URINARY RETENTION -Indwelling Kaur catheter because of recurrent retention -Rocephin 1 g IV every 24 hours pending culture results TYPE 2 DIABETES MELLITUS -4 times a day glucometers -Low-dose sliding scale NovoLog -Hold metformin until he is eating well and stable during the postoperative period POLYMYALGIA RHEUMATICA -Continue outpatient therapy with prednisone HYPERTENSION -Hold hydrochlorothiazide spironolactone, resume when stable postoperatively -Continue beta enoc therapy
[2017-02-08] MEDS: Haloperidol Lactate 5 MG/ML SDV IM PRN ×3 (19:31→23:08)
[2017-02-08] MEDS: Tamsulosin 0.4 MG Cap.ER PO SCH (20:34)
[2017-02-08] MEDS: Melatonin 3 MG Tab PO SCH (20:35)
[2017-02-09] MEDS: Haloperidol Lactate 5 MG/ML SDV IM PRN ×2 (00:14→01:09)
[2017-02-09] MEDS: traMADol 50 MG Tab PO PRN (01:27)
[2017-02-09 07:30] VITALS: BP 127/69
[2017-02-09] MEDS: Acetaminophen 325 MG Tab PO PRN (07:30)
[2017-02-09] MEDS: Magnesium Hydroxide 400 MG/5 ML Susp 30 ML Cup PO PRN (07:30)
[2017-02-09] MEDS: Haloperidol Lactate 5 MG/ML SDV IVPUSH PRN (07:31)
[2017-02-09] MEDS: Sennosides 8.6 MG Tab PO PRN (07:31)
[2017-02-09] MEDS: Divalproex Sodium Delayed-Release 250 MG Tab.CR PO SCH (07:32)
[2017-02-09] MEDS: Pantoprazole 40 MG Tab.CR PO SCH (07:48)
[2017-02-09] MEDS: Insulin Aspart 100 Units/ML 3 ML Pen SUBCUT SCH (07:56)
[2017-02-09] MEDS: Metoprolol Tartrate 50 MG Tab PO SCH (08:00)
[2017-02-09] MEDS: Pravastatin 20 MG Tab PO SCH (08:00)
[2017-02-09] MEDS: Magnesium Oxide 400 MG Tab PO SCH (08:00)
[2017-02-09] MEDS: predniSONE 5 MG Tab PO SCH (08:00)
--- NOTE | 2017-02-09 08:56 | PCM.DCSUM1 ---
Discharge Summary - Hospital Course Free Text/Narrative:: Patient is POD 3 of a lumbar fusion. He is doing well. His pain is undercontrol with oral pain medications. He is ambulating better. - Discharge Data Discharge Date: 02/09/17 Discharge Disposition: DC/Tfer to SNF 03 Condition: Good - Patient Summary/Data Consults: Consultations 02/06/17 10:00 Consult to Physician [CONS] Routine Consulting Provider: Eladio Longoria Call Completed to Consulting Physician: Yes OT Evaluation and Treatment [CONS] Routine Please Evaluate and Treat. OT Reason for Consult: Strengthening This query below is only for informational purposes and is not editable. PT Evaluation and Treatment [CONS] Routine Please Evaluate and Treat. PT Reason for Consult: Strengthening This query below is only for informational purposes and is not editable. - Patient Instructions Diet: Usual Diet as Tolerated Activity: Apply Ice, As Tolerated Driving: Do Not Drive Showering/Bathing: May Shower, No Tub Bathing/Swimming Wound/Incision Care: Keep Operative Site/Wound Site Clean and Dry, Change Dressing Daily Notify Provider of: Fever, Increased Pain, Swelling and Redness, Drainage, Nausea and/or Vomiting - Discharge Plan Prescriptions/Med Rec: Divalproex Sodium 250 mg PO BIDMEALS #180 tab.cr Melatonin 9 mg PO BEDTIME #90 tablet Sulfamethoxazole/Trimethoprim [Septra DS] 1 each PO BID #10 tab Tamsulosin [Flomax] 0.4 mg PO BEDTIME #90 cap.er traMADol [Ultram] 100 mg PO Q6H PRN #90 tablet PRN Reason: Pain Home Medications: Home Meds Ascorbic Acid 500 mg PO DAILY 01/22/13 [History] Clopidogrel [Plavix] 75 mg PO DAILY 01/22/13 [History] HCTZ/Triamterene [Maxzide 25-37.5 MG] 0.5 tab PO DAILY 01/22/13 [History] Metoprolol Tartrate [Lopressor] 50 mg PO BID 01/22/13 [History] Pravastatin Sodium 20 mg PO .4XWEEK 01/22/13 [History] Vitamin B Complex [B Complex] 1 each PO DAILY 01/22/13 [History] Vitamin E 400 unit PO DAILY 01/22/13 [History] Pantoprazole [ProTONIX] 40 mg PO DAILY 01/01/14 [History] metFORMIN HCl [Metformin HCl] 500 mg PO BID 01/22/14 [History] predniSONE [Prednisone] 5 mg PO DAILY 01/22/14 [History] metFORMIN [Glucophage] 250 mg PO ACLUNCH 01/15/17 [History] Divalproex Sodium 250 mg PO BIDMEALS #180 tab.cr 02/08/17 [Rx] Melatonin 9 mg PO BEDTIME #90 tablet 02/08/17 [Rx] Sulfamethoxazole/Trimethoprim [Septra DS] 1 each PO BID #10 tab 02/08/17 [Rx] Tamsulosin [Flomax] 0.4 mg PO BEDTIME #90 cap.er 02/08/17 [Rx] traMADol [Ultram] 100 mg PO Q6H PRN #90 tablet 02/08/17 [Rx] Patient Handouts: Spinal Fusion, Constipation, Adult Referrals: Rudolph Franco MD [Consulting Physician] - 02/21/17 1:00 pm Amita Rios NP [Nurse Practitioner] - 02/18/17 10:45 am - Discharge Summary/Plan Comment DC Time >30 min.: Yes Discharge Summary/Plan Comment: Patient will be dcd to retirement today. He will follow up in 1 month. He is to continue on oral pain medication. He will have PT/OT for strengthening. - Patient Data Vitals - Most Recent: Last Vital Signs Temp 36.7 C 02/09/17 07:25 Pulse 95 02/09/17 08:00 Resp 16 02/09/17 07:25 BP 127/69 02/09/17 08:00 Pulse Ox 92 L 02/09/17 07:25 Weight - Most Recent: 157 lb I&O - Last 24 hours: Intake & Output 02/08/17 02/09/17 02/09/17 22:59 06:59 14:59 Intake Total 1100 240 120 Output Total 425 600 Balance 675 -360 120 DELORIS Results - Last 24 hrs: Microbiology 02/07/17 22:17 Urine Culture - Preliminary Urine, Catheterized NO GROWTH AFTER 1 DAY Med Orders - Current: Current Medications Acetaminophen (Tylenol) 650 mg PO Q4H PRN PRN Reason: fever/pain Last Admin: 02/09/17 07:30 Dose: 650 mg Acetaminophen (Tylenol) 650 mg RECTAL Q4H PRN PRN Reason: Fever Al Hydroxide/Mg Hydroxide (Mag-Al Plus) 30 ml PO Q4H PRN PRN Reason: Indigestion Dextrose (Glutose 15) 15 gm PO ONETIME PRN PRN Reason: Hypoglycemia Dextrose/Water (Dextrose 50% In Water) 50 ml IV ONETIME PRN PRN Reason: Hypoglycemia Divalproex Sodium (Divalproex Sodium) 250 mg PO BIDMEALS [facility] Last Admin: 02/09/17 07:32 Dose: 250 mg Haloperidol (Haldol) 1 mg PO Q2H PRN PRN Reason: Agitation Last Admin: 02/08/17 18:24 Dose: 1 mg Haloperidol Lactate (Haldol) 1 mg IVPUSH Q1H PRN PRN Reason: Agitation Last Admin: 02/09/17 07:31 Dose: 1 mg Haloperidol Lactate (Haldol) 1 mg IM Q1H PRN PRN Reason: Agitation Last Admin: 02/08/17 23:08 Dose: 1 mg Haloperidol Lactate (Haldol) 2 mg IM Q1H PRN PRN Reason: Agitation Last Admin: 02/09/17 01:09 Dose: 2 mg Lactated Ringer's (Ringers, Lactated) 1,000 mls @ 100 mls/hr IV ASDIRECTED [facility] Last Admin: 02/08/17 10:39 Dose: 100 mls/hr Ceftriaxone Sodium 1 gm/ (Sodium Chloride) 50 mls @ 100 mls/hr IV Q24H [facility] Last Admin: 02/08/17 17:06 Dose: 100 mls/hr Insulin Aspart (Novolog) 0 unit SUBCUT QIDACANDBED [facility] PRN Reason: Protocol Last Admin: 02/09/17 07:56 Dose: 1 units Magnesium Hydroxide (Milk Of Magnesia) 30 ml PO BID PRN PRN Reason: Constipation Last Admin: 02/09/17 07:30 Dose: 30 ml Magnesium Oxide (Magnesium Oxide) 400 mg PO BID [facility] Last Admin: 02/09/17 08:00 Dose: 400 mg Melatonin (Melatonin) 9 mg PO BEDTIME [facility] Last Admin: 02/08/17 20:35 Dose: 9 mg Metoprolol Tartrate (Lopressor) 50 mg PO BID [facility] Last Admin: 02/09/17 08:00 Dose: 50 mg Naloxone HCl (Narcan) 0.2 mg IVPUSH ONETIME PRN PRN Reason: Oversedation Ondansetron HCl (Zofran) 8 mg IVPUSH Q4H PRN PRN Reason: Nausea/Vomiting Pantoprazole Sodium (Protonix) 40 mg PO DAILY@0730 [facility] Last Admin: 02/09/17 07:48 Dose: 40 mg Pravastatin Sodium (Pravachol) 20 mg PO SuTuThSa@0900 [facility] Last Admin: 02/09/17 08:00 Dose: 20 mg Prednisone (Prednisone) 5 mg PO DAILY [facility] Last Admin: 02/09/17 08:00 Dose: 5 mg Senna (Senna) 8.6 mg PO BID PRN PRN Reason: Constipation Last Admin: 02/09/17 07:31 Dose: 8.6 mg Tamsulosin HCl (Flomax) 0.4 mg PO BEDTIME [facility] Last Admin: 02/08/17 20:34 Dose: 0.4 mg Tramadol HCl (Ultram) 100 mg PO Q6H PRN PRN Reason: Pain Last Admin: 02/09/17 01:27 Dose: 100 mg Discontinued Medications Bupivacaine HCl/Epinephrine Bitart (Marcaine 0.5%/Epinephrine 1:200,000) Confirm Administered Dose 50 ml .ROUTE .STK-MED ONE Stop: 02/06/17 09:33 Ropivacaine 49.25 ml/Ketorolac Tromethamine 30 mg/Epinephrine HCl 0.5 mg/ Clonidine HCl 80 mcg/ Sodium Chloride 48.45 ml 0 ml INJECT ONETIME ONE Stop: 02/06/17 07:31 Last Admin: 02/06/17 15:14 Dose: Not Given Dexamethasone (Dexamethasone) Confirm Administered Dose 4 mg .ROUTE .STK-MED ONE Stop: 02/06/17 07:20 Diazepam (Valium.) 5 mg PO Q6H PRN PRN Reason: Spasms Ephedrine Sulfate (Ephedrine Sulfate) Confirm Administered Dose 50 mg .ROUTE .STK-MED ONE Stop: 02/06/17 07:46 Fentanyl (Sublimaze) Confirm Administered Dose 250 mcg .ROUTE .STK-MED ONE Stop: 02/06/17 07:20 Gabapentin (Neurontin) 300 mg PO ONETIME ONE Stop: 02/06/17 06:16 Last Admin: 02/06/17 06:11 Dose: 300 mg Gelatin (Gelfoam) 2 gm .ROUTE .STK-MED ONE Stop: 02/06/17 08:01 Hydromorphone HCl (Dilaudid) 1 mg IVPUSH Q2H PRN PRN Reason: Pain Stop: 02/07/17 10:00 Clindamycin Phosphate 900 mg/ (Sodium Chloride) 106 mls @ 200 mls/hr IV ONETIME ONE Stop: 02/06/17 08:01 Last Admin: 02/06/17 07:02 Dose: 200 mls/hr Tranexamic Acid 730 mg/ Sodium (Chloride) 57.3 mls @ 229.2 mls/hr IV Q3H [facility] Stop: 02/06/17 10:44 Last Admin: 02/06/17 10:15 Dose: 229.2 mls/hr Lactated Ringer's (Ringers, Lactated) Confirm Administered Dose 1,000 mls @ as directed .ROUTE .STK-MED ONE Stop: 02/06/17 08:27 Acetaminophen 1,000 mg/ Premix 100 mls @ 400 mls/hr IV ONETIME ONE Stop: 02/06/17 10:44 Last Admin: 02/06/17 10:21 Dose: 400 mls/hr Clindamycin Phosphate 600 mg/ (Sodium Chloride) 54 mls @ 100 mls/hr IV Q8H [facility] Stop: 02/07/17 02:33 Last Admin: 02/06/17 14:54 Dose: Not Given Clindamycin Phosphate 600 mg/ (Sodium Chloride) 54 mls @ 100 mls/hr IV Q8H [facility] Stop: 02/07/17 06:33 Last Admin: 02/07/17 06:20 Dose: 100 mls/hr Magnesium Sulfate 2 gm/ Premix 50 mls @ 25 mls/hr IV ONETIME ONE Stop: 02/08/17 11:59 Last Admin: 02/08/17 09:32 Dose: 25 mls/hr Ketorolac Tromethamine (Toradol) Confirm Administered Dose 60 mg .ROUTE .STK- MED ONE Stop: 02/06/17 09:31 Lidocaine HCl (Xylocaine 2% Jelly) 10 ml MUCMEM ONETIME ONE Stop: 02/07/17 22:18 Last Admin: 02/07/17 22:26 Dose: 10 ml Verify Scopolamine (Patch) 0 each TOP DAILY [facility] Last Admin: 02/07/17 08:26 Dose: Not Given Ondansetron HCl (Zofran) Confirm Administered Dose 4 mg .ROUTE .STK-MED ONE Stop: 02/06/17 07:20 Oxycodone HCl (Oxycodone) 5 - 10 mg PO Q4H PRN PRN Reason: Pain Stop: 02/07/17 10:00 Last Admin: 02/07/17 08:05 Dose: 10 mg Oxycodone/Acetaminophen (Percocet 325-5 Mg) 0 tab PO Q4H PRN PRN Reason: Pain Povidone Iodine (Betadine 10% Soln) Confirm Administered Dose 1 ml .ROUTE .STK- MED ONE Stop: 02/06/17 06:53 Last Admin: 02/06/17 08:02 Dose: 40 ml Propofol (Diprivan 20 Ml) Confirm Administered Dose 200 mg .ROUTE .STK-MED ONE Stop: 02/06/17 07:20 Propofol (Diprivan 20 Ml) Confirm Administered Dose 400 mg .ROUTE .STK-MED ONE Stop: 02/06/17 07:49 Rocuronium Sprakers (Zemuron) Confirm Administered Dose 50 mg .ROUTE .STK-MED ONE Stop: 02/06/17 07:20 Scopolamine (Transderm-Scop) 1.5 mg TOP Q72H [facility] Stop: 02/09/17 04:15 Last Admin: 02/06/17 06:11 Dose: 1.5 mg Thrombin (Thrombin-Jmi) Confirm Administered Dose 15,000 unit .ROUTE .STK-MED ONE Stop: 02/06/17 06:53 Last Admin: 02/06/17 08:02 Dose: 10,000 unit Zolpidem Tartrate (Ambien) 5 mg PO BEDTIME PRN PRN Reason: Sleep - Exam General: Reports: Alert, Oriented Back Exam: Reports: Normal Inspection Extremities: Normal Inspection, Normal Range of Motion, No Pedal Edema, Normal Capillary Refill Skin: Reports: Warm, Dry, Intact Wound/Incisions: Reports: Healing Well, Dressing Dry and Intact Neurological: Reports: No New Focal Deficit, Strength Equal Bilateral, Reflexes Equal Bilateral Psy/Mental Status: Reports: Alert *Q Meaningful Use (DIS) - VTE *Q VTE Criteria *Q: - Stroke *Q Stroke Criteria *Q: - AMI *Q AMI Criteria *Q:
[2017-02-09] MEDS ORDERED: Sodium Phosphate,Monobasic/Sodium Phosphate,Dibasic Enema 133 ML Bottle RECTAL ONE (10:16)
[2017-02-09] MEDS ORDERED: Gabapentin 300 MG Cap PO ONE (10:45)
== END 2017-02-09 11:00 | DRG 460 ==
LOC: JP.SDSSCHI 02-06 05:28 → JP.SDS 02-06 05:28 → EDSTATUS 02-06 08:00 → JP.MS 02-06 10:00
PROVIDERS: ADMIT Orthopaedic Surgery; ATTEND Orthopaedic Surgery
PROC: 0SG0071 Fusion of Lumbar Vertebral Joint with Autologous Tissue Substitute, Posterior Approach, Posterior Column, Open Approach (ICD-10-PCS; principal; 2017-02-06)
PROC: 0QB00ZZ Excision of Lumbar Vertebra, Open Approach (ICD-10-PCS; 2017-02-06)
DX: M43.16 Spondylolisthesis, lumbar region (principal); M48.061 Spinal stenosis, lumbar region without neurogenic claudication; M54.16 Radiculopathy, lumbar region; E11.9 Type 2 diabetes mellitus without complications; Z79.84 Long term (current) use of oral hypoglycemic drugs; I35.0 Nonrheumatic aortic (valve) stenosis; K21.9 Gastro-esophageal reflux disease without esophagitis; E78.5 Hyperlipidemia, unspecified; M35.3 Polymyalgia rheumatica; R41.3 Other amnesia; Z79.82 Long term (current) use of aspirin; Z79.52 Long term (current) use of systemic steroids; Z88.0 Allergy status to penicillin; Z88.7 Allergy status to serum and vaccine
CPT/HCPCS: 20930; 22633; 22634; 22840; 36415; 63047; 63048; 76001; 80048; 80053; 81001; 82962; 83735; 85025; 85027; 85610; 86850; 86900; 86901; 87086; 94762; 97110-GP; 97162-GP; 97165-GO; 97530-GP; 97535-GP; A9270-GY; C1713; J0131; J0696; J1100; J1630; J1885; J2405; J2704; J3010; J3475; J7030; J7050; J7120; S0077

== ENCOUNTER 2017-09-23 05:39 | Inpatient (IN) | payer MEDICARE, BC ==
--- NOTE | 2017-09-23 06:22 | EDM.PDOC ---
<OfficerQuan - Last Filed: 09/23/17 06:19> ED HPI GENERAL MEDICAL PROBLEM - General Chief Complaint: Fever Stated Complaint: MED[facility] Time Seen by Provider: 09/23/17 06:11 Source of Information: Reports: Patient, EMS, RN Notes Reviewed History Limitations: Reports: Physical Impairment - History of Present Illness INITIAL COMMENTS - FREE TEXT/NARRATIVE: 86-year-old gentleman presents to the emergency department via EMS services for fever, he has a known history of dementia difficult to obtain any history from him or review of systems abdominal pain Pain Score (Numeric/FACES): 3 - Related Data Allergies Allergy/AdvReac Type Severity Reaction Status Date / Time Penicillins Allergy Unknown Other Verified 08/21/17 13:56 amlodipine [From Norvasc] Allergy Cannot Verified 09/23/17 05:43 Remember pneumococcal 23-valent Allergy Headache Verified 08/21/17 13:56 polysacchari [From Pneumovax 23] sertraline [From Zoloft] Allergy Cannot Verified 09/23/17 05:43 Remember Home Meds: Home Meds Ascorbic Acid 500 mg PO DAILY 01/22/13 [History] HCTZ/Triamterene [Maxzide 25-37.5 MG] 0.5 tab PO DAILY 01/22/13 [History] Metoprolol Tartrate [Lopressor] 50 mg PO DAILY 01/22/13 [History] Pravastatin Sodium 20 mg PO BEDTIME 01/22/13 [History] Vitamin B Complex [B Complex] 1 each PO DAILY 01/22/13 [History] Pantoprazole [ProTONIX] 40 mg PO BEDTIME 01/01/14 [History] predniSONE [Prednisone] 5 mg PO DAILY 01/22/14 [History] Tamsulosin [Flomax] 0.4 mg PO BEDTIME #90 cap.er 02/08/17 [Rx] traMADol [Ultram] 100 mg PO Q6H PRN #90 tablet 02/08/17 [Rx] Melatonin 9 mg PO BEDTIME 08/15/17 [History] Calcium Citrate/Vitamin D3 [Calcium Citrate - Vit D Tablet] 1 tab PO DAILY 09/23 [History] Divalproex Sodium [Depakote] 250 mg PO BID 09/23/17 [History] Garlic 1 tab PO DAILY 09/23/17 [History] metFORMIN HCl [Metformin HCl] 750 mg PO DAILY 09/23/17 [History] Past Medical History HEENT History: Reports: Cataract, Hard of Hearing, Impaired Vision Cardiovascular History: Reports: Heart Murmur, Hypertension Gastrointestinal History: Reports: GERD Genitourinary History: Reports: Renal Calculus Musculoskeletal History: Reports: Back Pain, Chronic Other Musculoskeletal History: polymyalgia rheumatica. s/p L4-S1 Lumbar fusion 01/22/17 Neurological History: Reports: Concussion Other Neuro History: short term memory loss Psychiatric History: Reports: Dementia Endocrine/Metabolic History: Reports: Diabetes, Type II Oncologic (Cancer) History: Reports: Other (See Below) Other Oncologic History: face, hands, lips - Infectious Disease History Infectious Disease History: Reports: C-Difficile, Measles, Mumps, Scarlet Fever - Past Surgical History HEENT Surgical History: Reports: Adenoidectomy, Cataract Surgery, Tonsillectomy GI Surgical History: Reports: Appendectomy, Colonoscopy, Hernia Repair/Other Musculoskeletal Surgical History: Reports: None Oncologic Surgical History: Reports: None Social & Family History - Family History Family Medical History: Noncontributory - Tobacco Use Smoking Status *Q: Never Smoker - Caffeine Use Caffeine Use: Reports: Coffee Other Caffeine Use: drinks 1-2 cups/day of coffee. - Recreational Drug Use Recreational Drug Use: No ED ROS GENERAL - Review of Systems Review Of Systems: Unable To Obtain Constitutional: Reports: Fever ED EXAM, GENERAL - Physical Exam Exam: See Below Free Text/Narrative:: General: Male, not in any distress, alert and oriented one HEENT: head is atraumatic normocephalic, eyes pupils equal round reactive to light, sclera clear no conjunctivitis appreciated. Ears blocked by cerumen bilaterally canals are clear. Nose no septal deviation, nares are clear, no blood present. Mouth mucosa is dry and pink no erythema or exudate noted in soft palate, tongue is midline uvula is midline, dentition is intact. Neck: Supple no thyromegaly no tracheal deviation. Nodes: Cervical nodes subclavicular nodes nontender no palpable lymphadenopathy noted. Lungs: clear to auscultation bilaterally with symmetrical respirations, no adventitious noise appreciated. CV: Regular rate and rhythm S1 and S2 grade 2/6 systolic ejection murmur best appreciated left sternal border, no rubs or gallops noted. Abdomen: Soft, tenderness suprapubic area, no palpable masses or organomegaly appreciated, no distention no guarding bowel sounds are present, . Neuro: Cranial nerves II through XII grossly intact Skin: Warm and dry, intact Extremities: No lower extremity edema appreciated, pedal pulse is +2. Course - Vital Signs Last Recorded V/S: Last Vital Signs Temp 38.2 C H 09/23/17 06:59 Pulse 102 H 09/23/17 06:51 Resp 21 H 09/23/17 06:51 BP 116/64 09/23/17 06:51 Pulse Ox 93 L 09/23/17 06:51 - Orders/Labs/Meds Orders: Active Orders 24 hr Category Date Time Status Vital Signs [RC] Q1H Care 09/23/17 06:16 Active Chest 1V Frontal [CR] Urgent Exams 09/23/17 06:18 Taken CULTURE BLOOD [BC] Urgent Lab 09/23/17 06:30 Received CULTURE BLOOD [BC] Urgent Lab 09/23/17 06:40 Received CULTURE URINE [RM] Urgent Lab 09/23/17 06:16 Received UA W/MICROSCOPIC [URIN] Urgent Lab 09/23/17 06:16 Ordered Lactated Ringers [Ringers, Lactated] 1,000 ml Med 09/23/17 06:30 Active IV ASDIRECTED Levofloxacin/Dextrose 5%-Water [Levaquin in D5W 750 MG/ Med 09/23/17 06:30 Active 150 ML] 750 mg Premix Bag 1 bag IV Q24H Blood Culture x2 Reflex Set [OM.PC] Urgent Oth 09/23/17 06:16 Ordered Medication Orders Lactated Ringer's (Ringers, Lactated) 1,000 mls @ 999 mls/hr IV ASDIRECTED [facility] Last Infusion: 09/23/17 06:50 Dose: 200 mls/hr Admin: 09/23/17 06:49 Dose: 999 mls/hr Levofloxacin/Dextrose 750 mg/ (Premix) 150 mls @ 100 mls/hr IV Q24H [facility] Last Admin: 09/23/17 06:49 Dose: 100 mls/hr Labs: Laboratory Tests 09/23/17 09/23/17 09/23/17 Range/Units 06:16 06:16 06:16 WBC 12.5 H (4.5-11.0) K/uL RBC 4.34 (4.30-5.90) M/uL Hgb 12.7 D (12.0-15.0) g/dL Hct 38.8 L (40.0-54.0) % MCV 89 (80-98) fL MCH 29 (27-31) pg MCHC 33 (32-36) % Plt Count 174 (150-400) K/uL Neut % (Auto) 87 H (36-66) % Lymph % (Auto) 3 L (24-44) % [place] % (Auto) 7 H (2-6) % Eos % (Auto) 3 (2-4) % Baso % (Auto) 0 (0-1) % Sodium 139 L (140-148) mmol/L Potassium 3.8 (3.6-5.2) mmol/L Chloride 101 (100-108) mmol/L Carbon Dioxide 29 (21-32) mmol/L Anion Gap 12.8 (5.0-14.0) mmol/L BUN 22 H (7-18) mg/dL Creatinine 1.1 (0.8-1.3) mg/dL Est Cr Clr Drug Dosing 40.38 mL/min Estimated GFR (MDRD) > 60 (>60) Glucose 166 H (74-106) mg/dL Lactic Acid (0.4-2.0) mmol/L Calcium 8.7 (8.5-10.1) mg/dL Total Bilirubin 0.7 (0.2-1.0) mg/dL AST 16 (15-37) U/L ALT 19 (12-78) U/L Alkaline Phosphatase 57 (46-116) U/L C-Reactive Protein 2.36 H (0.0-0.3) mg/dL Total Protein 6.4 (6.4-8.2) g/dL Albumin 3.0 L (3.4-5.0) g/dL Globulin 3.4 (2.3-3.5) g/dL Albumin/Globulin Ratio 0.9 L (1.2-2.2) Urine Color Yellow Urine Appearance Cloudy Urine pH 6.0 (4.5-8.0) Ur Specific [place] 1.010 (1.008-1.030) Urine Protein Trace (NEGATIVE) mg/dL Urine Glucose (UA) Normal (NEGATIVE) mg/dL Urine Ketones Negative (NEGATIVE) mg/dL Urine Occult Blood Moderate (NEGATIVE) Urine Nitrite Negative (NEGAITVE) Urine Bilirubin Negative (NEGATIVE) Urine Urobilinogen Normal (NORMAL) mg/dL Ur Leukocyte Esterase Large (NEGATIVE) Urine RBC 10-20 H (0-5) Urine WBC 75-100 H (0-5) Ur Epithelial Cells Few Amorphous Sediment Not seen Urine Bacteria Many Urine Mucus Not seen 09/23/17 Range/Units 06:16 WBC (4.5-11.0) K/uL RBC (4.30-5.90) M/uL Hgb (12.0-15.0) g/dL Hct (40.0-54.0) % MCV (80-98) fL MCH (27-31) pg MCHC (32-36) % Plt Count (150-400) K/uL Neut % (Auto) (36-66) % Lymph % (Auto) (24-44) % [place] % (Auto) (2-6) % Eos % (Auto) (2-4) % Baso % (Auto) (0-1) % Sodium (140-148) mmol/L Potassium (3.6-5.2) mmol/L Chloride (100-108) mmol/L Carbon Dioxide (21-32) mmol/L Anion Gap (5.0-14.0) mmol/L BUN (7-18) mg/dL Creatinine (0.8-1.3) mg/dL Est Cr Clr Drug Dosing mL/min Estimated GFR (MDRD) (>60) Glucose (74-106) mg/dL Lactic Acid 2.1 H (0.4-2.0) mmol/L Calcium (8.5-10.1) mg/dL Total Bilirubin (0.2-1.0) mg/dL AST (15-37) U/L ALT (12-78) U/L Alkaline Phosphatase (46-116) U/L C-Reactive Protein (0.0-0.3) mg/dL Total Protein (6.4-8.2) g/dL Albumin (3.4-5.0) g/dL Globulin (2.3-3.5) g/dL Albumin/Globulin Ratio (1.2-2.2) Urine Color Urine Appearance Urine pH (4.5-8.0) Ur Specific [place] (1.008-1.030) Urine Protein (NEGATIVE) mg/dL Urine Glucose (UA) (NEGATIVE) mg/dL Urine Ketones (NEGATIVE) mg/dL Urine Occult Blood (NEGATIVE) Urine Nitrite (NEGAITVE) Urine Bilirubin (NEGATIVE) Urine Urobilinogen (NORMAL) mg/dL Ur Leukocyte Esterase (NEGATIVE) Urine RBC (0-5) Urine WBC (0-5) Ur Epithelial Cells Amorphous Sediment Urine Bacteria Urine Mucus Meds: Medications Generic Name Dose Route Start Last Admin Trade Name Freq PRN Reason Stop Dose Admin Lactated Ringer's 1,000 mls @ 999 mls/hr 09/23/17 06:30 09/23/17 06:50 Ringers, Lactated IV 200 mls/hr ASDIRECTED [facility] Infusion Levofloxacin/Dextrose 750 mg/ 150 mls @ 100 mls/hr 09/23/17 06:30 09/23/17 06 :49 Premix IV 100 mls/hr Q24H [facility] Administration Discontinued Medications Generic Name Dose Route Start Last Admin Trade Name Freq PRN Reason Stop Dose Admin Ibuprofen 600 mg 09/23/17 06:53 09/23/17 06:59 Motrin PO 09/23/17 06:54 600 mg ONETIME ONE Administration Departure - Departure Disposition: Admitted As Inpatient 64 Clinical Impression: Sepsis secondary to UTI - Discharge Information Referrals: PCP,None [Primary Care Provider] - Forms: ED Department Discharge <Balwinder Mckay G - Last Filed: 09/23/17 08:18> Course - Vital Signs Text/Narrative:: Dr. Juarez notified @ 0815h Departure - Departure Time of Disposition: 08:30 Condition: Fair
[2017-09-23] MEDS ORDERED: Levofloxacin/Dextrose 5%-Water 750 MG in Premix Bag 1 BAG IV SCH (06:30)
[2017-09-23] MEDS ORDERED: Lactated Ringers 1,000 ML IV SCH (06:30)
[2017-09-23] MEDS ORDERED: Ibuprofen 600 MG Tab PO ONE (06:53)
--- NOTE | 2017-09-23 10:10 | PCM.HP ---
H&P History of Present Illness - General Date of Service: 09/23/17 Admit Problem/Dx: Admission Diagnosis/Problem Admission Diagnosis/Problem Acute cystitis with hematuria Source of Information: Patient, Family, Provider History Limitations: Reports: Other (mild limitation due to dementia) - History of Present Illness Initial Comments - Free Text/Narative: Dann presented to the ER via ambulance with weakness and rigors. His history is mildly limited by dementia and his does provide some of the history. There was some mild increased urinary frequency and urgency noted yesterday. Patient did not have any fevers and had a good supper. Mild behavior changes were noted with mild agitation compared to baseline. He did not complain of any abdominal pain and has not had any nausea or diarrhea. Overnight he had some difficulty with rigors and as they progressed his weakness increased. His was not able to get him out of bed so she called an ambulance. He reports he had been doing well prior to onset of symptoms during the middle of the night. He does not feel short of breath. He is not complaining of acute pain but does have his chronic right-sided sciatic pain. Workup in the emergency room was suggestive of a urinary tract infection with sepsis. He has been started on antibiotics and has received IV fluids. He will be admitted for further management. abdominal pain Pain Score (Numeric/FACES): 3 Back Pain Score (Numeric/FACES): 6 - Related Data Allergies/Adverse Reactions: Allergies Allergy/AdvReac Type Severity Reaction Status Date / Time Penicillins Allergy Unknown Other Verified 08/21/17 13:56 amlodipine [From Norvasc] Allergy Cannot Verified 09/23/17 05:43 Remember pneumococcal 23-valent Allergy Headache Verified 08/21/17 13:56 polysacchari [From Pneumovax 23] sertraline [From Zoloft] Allergy Cannot Verified 09/23/17 05:43 Remember Home Medications: Home Meds Ascorbic Acid 500 mg PO DAILY 01/22/13 [History] Metoprolol Tartrate [Lopressor] 50 mg PO DAILY 01/22/13 [History] Pravastatin Sodium 40 mg PO ASDIRECTED 01/22/13 [History] Vitamin B Complex [B Complex] 1 each PO DAILY 01/22/13 [History] Pantoprazole [ProTONIX] 40 mg PO BEDTIME 01/01/14 [History] predniSONE [Prednisone] 4 mg PO DAILY 01/22/14 [History] Tamsulosin [Flomax] 0.4 mg PO BEDTIME #90 cap.er 02/08/17 [Rx] Melatonin 10 mg PO BEDTIME 08/15/17 [History] Calcium Citrate/Vitamin D3 [Calcium Citrate - Vit D Tablet] 1 tab PO DAILY 09/23 [History] Fish Oil/[place]-3 Fatty Acids [Fish Oil 1,000 MG] 1,000 mg PO DAILY 09/23/17 [ History] Triamterene/Hydrochlorothiazid [Maxzide 75 mg-50 mg Tablet] 37.5 mg PO DAILY 05/12 [History] Zinc Sulfate 220 mg PO DAILY 09/23/17 [History] metFORMIN HCl [Metformin HCl] 1,250 mg PO DAILY 09/23/17 [History] Past Medical History HEENT History: Reports: Cataract, Hard of Hearing, Impaired Vision Cardiovascular History: Reports: Heart Murmur, Hypertension Gastrointestinal History: Reports: GERD Genitourinary History: Reports: Renal Calculus Musculoskeletal History: Reports: Back Pain, Chronic Other Musculoskeletal History: polymyalgia rheumatica. s/p L4-S1 Lumbar fusion 01/22/17 Neurological History: Reports: Concussion Other Neuro History: short term memory loss Psychiatric History: Reports: Dementia Endocrine/Metabolic History: Reports: Diabetes, Type II Oncologic (Cancer) History: Reports: Other (See Below) Other Oncologic History: face, hands, lips - Infectious Disease History Infectious Disease History: Reports: C-Difficile, Measles, Mumps, Scarlet Fever - Past Surgical History HEENT Surgical History: Reports: Adenoidectomy, Cataract Surgery, Tonsillectomy GI Surgical History: Reports: Appendectomy, Colonoscopy, Hernia Repair/Other Musculoskeletal Surgical History: Reports: None Oncologic Surgical History: Reports: None Social & Family History - Family History Family Medical History: Noncontributory - Tobacco Use Smoking Status *Q: Never Smoker - Caffeine Use Caffeine Use: Reports: Coffee Other Caffeine Use: drinks 1-2 cups/day of coffee. - Alcohol Use Alcohol Use History: No - Recreational Drug Use Recreational Drug Use: No H&P Review of Systems - Review of Systems: Review Of Systems: See Below Free Text/Narrative: A complete 12 point review of systems was obtained. Pertinent positives and negatives are noted in the history of present illness. All other systems were reviewed and were negative except as noted. Exam - Exam Exam: See Below - Vital Signs Vital Signs: Last Vital Signs Temp 38.2 C H 09/23/17 06:59 Pulse 96 09/23/17 08:08 Resp 18 09/23/17 08:08 BP 104/58 L 09/23/17 08:08 Pulse Ox 96 09/23/17 08:08 Weight: 71.214 kg - Exam Quality Assessment: No: Supplemental Oxygen General: Alert, Cooperative. No: Mild Distress HEENT: Conjunctiva Clear, Mucosa Moist & [place]. No: Scleral Icterus Neck: Supple, Trachea Midline. No: Lymphadenopathy Lungs: Clear to Auscultation, Normal Respiratory Effort Cardiovascular: Regular Rhythm, Tachycardia, Systolic Murmur GI/Abdominal Exam: Normal Bowel Sounds, Soft, No Distention, Tender (mild suprapubic/RLQ) Back Exam: Normal Inspection, Decreased Range of Motion, Paraspinal Tenderness ( right lumbar area). No: Full Range of Motion Extremities: No Pedal Edema. No: Increased Warmth Neuro Extensive - Mental Status: Alert, Normal Mood/Affect, Nl Response to Commands Neuro Extensive - Motor, Sensory, Reflexes: CN II-XII Intact. No: Dysarthria, Abnormal Motor Psychiatric: Alert, Normal Affect - Patient Data Lab Results Last 24 hrs: Laboratory Results - last 24 hr 09/23/17 09/23/17 09/23/17 Range/Units 06:16 06:16 06:16 WBC 12.5 H (4.5-11.0) K/uL RBC 4.34 (4.30-5.90) M/uL Hgb 12.7 D (12.0-15.0) g/dL Hct 38.8 L (40.0-54.0) % MCV 89 (80-98) fL MCH 29 (27-31) pg MCHC 33 (32-36) % Plt Count 174 (150-400) K/uL Neut % (Auto) 87 H (36-66) % Lymph % (Auto) 3 L (24-44) % [place] % (Auto) 7 H (2-6) % Eos % (Auto) 3 (2-4) % Baso % (Auto) 0 (0-1) % Sodium 139 L (140-148) mmol/L Potassium 3.8 (3.6-5.2) mmol/L Chloride 101 (100-108) mmol/L Carbon Dioxide 29 (21-32) mmol/L Anion Gap 12.8 (5.0-14.0) mmol/L BUN 22 H (7-18) mg/dL Creatinine 1.1 (0.8-1.3) mg/dL Est Cr Clr Drug Dosing 40.38 mL/min Estimated GFR (MDRD) > 60 (>60) Glucose 166 H (74-106) mg/dL Lactic Acid (0.4-2.0) mmol/L Calcium 8.7 (8.5-10.1) mg/dL Total Bilirubin 0.7 (0.2-1.0) mg/dL AST 16 (15-37) U/L ALT 19 (12-78) U/L Alkaline Phosphatase 57 (46-116) U/L C-Reactive Protein 2.36 H (0.0-0.3) mg/dL Total Protein 6.4 (6.4-8.2) g/dL Albumin 3.0 L (3.4-5.0) g/dL Globulin 3.4 (2.3-3.5) g/dL Albumin/Globulin Ratio 0.9 L (1.2-2.2) Urine Color Yellow Urine Appearance Cloudy Urine pH 6.0 (4.5-8.0) Ur Specific [place] 1.010 (1.008-1.030) Urine Protein Trace (NEGATIVE) mg/dL Urine Glucose (UA) Normal (NEGATIVE) mg/dL Urine Ketones Negative (NEGATIVE) mg/dL Urine Occult Blood Moderate (NEGATIVE) Urine Nitrite Negative (NEGAITVE) Urine Bilirubin Negative (NEGATIVE) Urine Urobilinogen Normal (NORMAL) mg/dL Ur Leukocyte Esterase Large (NEGATIVE) Urine RBC 10-20 H (0-5) Urine WBC 75-100 H (0-5) Ur Epithelial Cells Few Amorphous Sediment Not seen Urine Bacteria Many Urine Mucus Not seen 09/23/17 Range/Units 06:16 WBC (4.5-11.0) K/uL RBC (4.30-5.90) M/uL Hgb (12.0-15.0) g/dL Hct (40.0-54.0) % MCV (80-98) fL MCH (27-31) pg MCHC (32-36) % Plt Count (150-400) K/uL Neut % (Auto) (36-66) % Lymph % (Auto) (24-44) % [place] % (Auto) (2-6) % Eos % (Auto) (2-4) % Baso % (Auto) (0-1) % Sodium (140-148) mmol/L Potassium (3.6-5.2) mmol/L Chloride (100-108) mmol/L Carbon Dioxide (21-32) mmol/L Anion Gap (5.0-14.0) mmol/L BUN (7-18) mg/dL Creatinine (0.8-1.3) mg/dL Est Cr Clr Drug Dosing mL/min Estimated GFR (MDRD) (>60) Glucose (74-106) mg/dL Lactic Acid 2.1 H (0.4-2.0) mmol/L Calcium (8.5-10.1) mg/dL Total Bilirubin (0.2-1.0) mg/dL AST (15-37) U/L ALT (12-78) U/L Alkaline Phosphatase (46-116) U/L C-Reactive Protein (0.0-0.3) mg/dL Total Protein (6.4-8.2) g/dL Albumin (3.4-5.0) g/dL Globulin (2.3-3.5) g/dL Albumin/Globulin Ratio (1.2-2.2) Urine Color Urine Appearance Urine pH (4.5-8.0) Ur Specific [place] (1.008-1.030) Urine Protein (NEGATIVE) mg/dL Urine Glucose (UA) (NEGATIVE) mg/dL Urine Ketones (NEGATIVE) mg/dL Urine Occult Blood (NEGATIVE) Urine Nitrite (NEGAITVE) Urine Bilirubin (NEGATIVE) Urine Urobilinogen (NORMAL) mg/dL Ur Leukocyte Esterase (NEGATIVE) Urine RBC (0-5) Urine WBC (0-5) Ur Epithelial Cells Amorphous Sediment Urine Bacteria Urine Mucus Result Diagrams: 09/23/17 06:16 09/23/17 06:16 Imaging Impressions Last 24 hrs: CXR - images personally reviewed - lungs are clear with no infiltrate, effusion , or mass. Heart size is normal. *Q Meaningful Use (ADM) - VTE Risk Assess *Q Each Risk Factor Represents 1 Point: Obesity ( BMI > 25 kg/m2), Sepsis Total Score 1 Point Risk Factors: 2 Each Risk Factor Represents 2 Points: None Total Score 2 Point Risk Factors: 0 Each Risk Factor Represents 3 Points: Age 75 Years or Greater Total Score 3 Point Risk Factors: 3 Each Risk Factor Represents 5 Points: None Total Score 5 Point Risk Factors: 0 Venous Thromboembolism Risk Factor Score *Q: 5 - Problem List (1) Acute cystitis with hematuria SNOMED Code(s): 61970345 ICD Code: N30.01 - ACUTE CYSTITIS WITH HEMATURIA Status: Acute Current Visit: Yes (2) Sepsis SNOMED Code(s): 77564752 ICD Code: A41.9 - SEPSIS, UNSPECIFIED ORGANISM Status: Acute Current Visit: Yes Qualifiers: Sepsis type: sepsis due to unspecified organism Qualified Code(s): A41.9 - Sepsis, unspecified organism (3) Dementia SNOMED Code(s): 42781815 ICD Code: F03.90 - UNSPECIFIED DEMENTIA WITHOUT BEHAVIORAL DISTURBANCE Status: Chronic Current Visit: No Qualifiers: Dementia type: Alzheimer's disease Dementia behavioral disturbance: without behavioral disturbance (4) Lumbar stenosis SNOMED Code(s): 38191749 ICD Code: M48.061 - SPINAL STENOSIS, LUMBAR REGION WITHOUT NEUROGENIC RAZIA Status: Chronic Current Visit: No Qualifiers: Neurogenic claudication status: without neurogenic claudication Qualified Code(s): M48.061 - Spinal stenosis, lumbar region without neurogenic claudication (5) Type 2 diabetes mellitus SNOMED Code(s): 12582966 ICD Code: E11.9 - TYPE 2 DIABETES MELLITUS WITHOUT COMPLICATIONS Status: Chronic Current Visit: No Qualifiers: Diabetes mellitus termination clerk insulin use: without group home use Diabetes mellitus complication status: without complication Qualified Code(s): E11.9 - Type 2 diabetes mellitus without complications Problem List Initiated/Reviewed/Updated: Yes Orders Last 24hrs: Active Orders 24 hr Category Date Time Status Patient Status Manage Transfer [TRANSFER] Routine ADT 09/23/17 09:47 Ordered Vital Signs [RC] Q1H Care 09/23/17 06:16 Active Chest 1V Frontal [CR] Urgent Exams 09/23/17 06:18 Taken CULTURE BLOOD [BC] Urgent Lab 09/23/17 06:30 Received CULTURE BLOOD [BC] Urgent Lab 09/23/17 06:40 Received CULTURE URINE [RM] Urgent Lab 09/23/17 06:16 Received UA W/MICROSCOPIC [URIN] Urgent Lab 09/23/17 06:16 Ordered Lactated Ringers [Ringers, Lactated] 1,000 ml Med 09/23/17 06:30 Active IV ASDIRECTED Levofloxacin/Dextrose 5%-Water [Levaquin in D5W 750 MG/ Med 09/23/17 06:30 Active 150 ML] 750 mg Premix Bag 1 bag IV Q24H Sodium Chloride 0.9% [Normal Saline] 1,000 ml Med 09/23/17 10:00 Active IV ASDIRECTED Blood Culture x2 Reflex Set [OM.PC] Urgent Oth 09/23/17 06:16 Ordered Resuscitation Status Routine Resus Stat 09/23/17 09:50 Ordered Medication Orders Lactated Ringer's (Ringers, Lactated) 1,000 mls @ 999 mls/hr IV ASDIRECTED VERONICA Last Infusion: 09/23/17 06:50 Dose: 200 mls/hr Admin: 09/23/17 06:49 Dose: 999 mls/hr Levofloxacin/Dextrose 750 mg/ (Premix) 150 mls @ 100 mls/hr IV Q24H VERONICA Last Admin: 09/23/17 06:49 Dose: 100 mls/hr Sodium Chloride (Normal Saline) 1,000 mls @ 100 mls/hr IV ASDIRECTED VERONICA Assessment/Plan Comment:: ASSESSMENT AND PLAN - Acute cystitis with sepsis syndrome - evidence for sepsis including tachycardia , leukocytosis, lactic acidosis. Heart rate has been improving with fluids. Blood pressure did dip but has rebounded with fluids as well. He has received antibiotics. -Continue levofloxacin -IV fluids -Repeat lactic acid level -Follow-up culture results -Physical therapy Chronic right lower back pain - has not responded to epidural steroid injections , patient has significant difficulty daily and at night because of his pain. -Scheduled acetaminophen -Trial of gabapentin -Aspercreme as needed Type 2 diabetes mellitus, controlled - on oral medications at home. These will be continued. 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 -Melatonin at bedtime Maintenance issues - - DVT prophylaxis - mechanical - GI prophylaxis - not indicated - Nutrition - regular - Kaur catheter - not indicated CODE STATUS - DNR/DNI Admission justification - This patient will be admitted for inpatient services and is medically appropriate meeting medical necessity for inpatient admission as outlined in my documentation. I reasonably expect the patient will require inpatient services that span a period time over 2 midnights. I reasonably expect this patient to be discharged or transferred within 96 hours after admission to the [facility]. Disposition - anticipate discharge home with his after the hospital stay Primary care physician - Dr. Cricket Juarez M.D.
[2017-09-23] MEDS ORDERED: Polyethylene Glycol 3350 Powder 17 GM Packet PO PRN (10:56)
[2017-09-23] MEDS ORDERED: Trolamine Salicylate/Aloe Vera 10% Crm 85 GM Tube TOP PRN (10:56)
[2017-09-23] MEDS ORDERED: Ondansetron 4 MG Tab.DIS PO PRN (10:56)
[2017-09-23] MEDS: Sodium Chloride 0.9% 1,000 ML IV SCH ×2 (11:29→21:50)
[2017-09-23] MEDS: Acetaminophen 500 MG Tab PO SCH ×2 (14:35→20:09)
[2017-09-23] MEDS: Ibuprofen 600 MG Tab PO PRN (18:27)
[2017-09-23] MEDS: Tamsulosin 0.4 MG Cap.ER PO SCH (20:09)
[2017-09-23] MEDS: Pantoprazole 40 MG Tab.CR PO SCH (20:09)
[2017-09-23] MEDS: Melatonin 3 MG Tab PO SCH (20:09)
[2017-09-23] MEDS: Gabapentin 300 MG Cap PO SCH (20:09)
[2017-09-24] MEDS: Levofloxacin 250 MG Tab PO SCH (05:43)
[2017-09-24] MEDS: Acetaminophen 500 MG Tab PO SCH ×3 (08:18→20:21)
[2017-09-24] MEDS: metFORMIN 500 MG Tab PO SCH (08:18)
[2017-09-24] MEDS: predniSONE 1 MG Tab PO SCH (08:18)
--- NOTE | 2017-09-24 10:59 | PCM.PN ---
- General Info Date of Service: 09/24/17 Functional Status: Reports: Pain Controlled, Tolerating Diet - Review of Systems General: Denies: Fever Systems Review Comment:: No acute events overnight. Patient is feeling better today. No fevers or rigors overnight. No abdominal pain. Appetite has been good. - Patient Data Vitals - Most Recent: Last Vital Signs Temp 36.3 C 09/24/17 07:32 Pulse 67 09/24/17 07:32 Resp 16 09/24/17 07:32 BP 133/61 09/24/17 07:32 Pulse Ox 96 09/24/17 07:32 Weight - Most Recent: 65.862 kg I&O - Last 24 Hours: Intake & Output 09/23/17 09/24/17 09/24/17 22:59 06:59 14:59 Intake Total 1382 Output Total 400 600 Balance -400 782 Lab Results Last 24 Hours: Laboratory Results - last 24 hr 09/23/17 09/24/17 09/24/17 Range/Units 11:31 05:11 05:11 WBC 9.7 (4.5-11.0) K/uL RBC 3.86 L (4.30-5.90) M/uL Hgb 11.2 L (12.0-15.0) g/dL Hct 35.5 L (40.0-54.0) % MCV 92 (80-98) fL MCH 29 (27-31) pg MCHC 32 (32-36) % Plt Count 148 L (150-400) K/uL Sodium 142 (140-148) mmol/L Potassium 3.7 (3.6-5.2) mmol/L Chloride 107 (100-108) mmol/L Carbon Dioxide 30 (21-32) mmol/L Anion Gap 5.2 (5.0-14.0) mmol/L BUN 19 H (7-18) mg/dL Creatinine 1.0 (0.8-1.3) mg/dL Est Cr Clr Drug Dosing 47.74 mL/min Estimated GFR (MDRD) > 60 (>60) Glucose 121 H (74-106) mg/dL Lactic Acid 1.5 (0.4-2.0) mmol/L Calcium 8.3 L (8.5-10.1) mg/dL Master Results Last 24 Hours: Microbiology 09/23/17 06:40 Aerobic Blood Culture - Preliminary Blood - Arm, Right NO GROWTH AFTER 1 DAY Anaerobic Blood Culture - Preliminary NO GROWTH AFTER 1 DAY 09/23/17 06:30 Aerobic Blood Culture - Preliminary Blood - Arm, Right NO GROWTH AFTER 1 DAY Anaerobic Blood Culture - Preliminary NO GROWTH AFTER 1 DAY 09/23/17 06:16 Urine Culture - Preliminary Urine, Clean Catch Med Orders - Current: Current Medications Acetaminophen (Tylenol Extra Strength) 1,000 mg PO TID [facility] Last Admin: 09/24/17 08:18 Dose: 1,000 mg Gabapentin (Neurontin) 300 mg PO BEDTIME [facility] Last Admin: 09/23/17 20:09 Dose: 300 mg Ibuprofen (Motrin) 600 mg PO Q6H PRN PRN Reason: Pain/Fever Last Admin: 09/23/17 18:27 Dose: 600 mg Levofloxacin (Levaquin) 250 mg PO Q24H [facility] Last Admin: 09/24/17 05:43 Dose: 250 mg Melatonin (Melatonin) 9 mg PO BEDTIME [facility] Last Admin: 09/23/17 20:09 Dose: 9 mg Metformin HCl (Glucophage) 1,250 mg PO DAILY@0800 [facility] Last Admin: 09/24/17 08:18 Dose: 1,250 mg Ondansetron HCl (Zofran Odt) 4 mg PO Q6H PRN PRN Reason: Nausea able to take PO Pantoprazole Sodium (Protonix) 40 mg PO BEDTIME [facility] Last Admin: 09/23/17 20:09 Dose: 40 mg Polyethylene Glycol (Miralax) 17 gm PO DAILY PRN PRN Reason: Constipation Prednisone (Prednisone) 4 mg PO DAILY@0800 [facility] Last Admin: 09/24/17 08:18 Dose: 4 mg Senna/Docusate Sodium (Senna Plus) 1 tab PO BID PRN PRN Reason: Constipation Tamsulosin HCl (Flomax) 0.4 mg PO BEDTIME [facility] Last Admin: 09/23/17 20:09 Dose: 0.4 mg Trolamine Salicylate (Aspercreme 10%) 0 gm TOP Q1H PRN PRN Reason: back pain Discontinued Medications Lactated Ringer's (Ringers, Lactated) 1,000 mls @ 999 mls/hr IV ASDIRECTED [facility] Last Infusion: 09/23/17 06:50 Dose: 200 mls/hr Levofloxacin/Dextrose 750 mg/ (Premix) 150 mls @ 100 mls/hr IV Q24H [facility] Last Admin: 09/23/17 06:49 Dose: 100 mls/hr Sodium Chloride (Normal Saline) 1,000 mls @ 100 mls/hr IV ASDIRECTED [facility] Last Admin: 09/23/17 21:50 Dose: 100 mls/hr Ibuprofen (Motrin) 600 mg PO ONETIME ONE Stop: 09/23/17 06:54 Last Admin: 09/23/17 06:59 Dose: 600 mg - Exam Quality Assessment: No: Supplemental Oxygen General: Alert, Cooperative, No Acute Distress Neck: Supple Lungs: Normal Respiratory Effort GI/Abdominal Exam: No Distention Extremities: No Pedal Edema Psy/Mental Status: Alert, Normal Affect - Problem List & Annotations (1) Acute cystitis with hematuria SNOMED Code(s): 26568023 Code(s): N30.01 - ACUTE CYSTITIS WITH HEMATURIA Status: Acute Current Visit: Yes (2) Sepsis SNOMED Code(s): 27912488 Code(s): A41.9 - SEPSIS, UNSPECIFIED ORGANISM Status: Acute Current Visit : Yes Qualifiers: Sepsis type: sepsis due to unspecified organism Qualified Code(s): A41.9 - Sepsis, unspecified organism (3) Dementia SNOMED Code(s): 04025197 Code(s): F03.90 - UNSPECIFIED DEMENTIA WITHOUT BEHAVIORAL DISTURBANCE Status: Chronic Current Visit: No Qualifiers: Dementia type: Alzheimer's disease Dementia behavioral disturbance: without behavioral disturbance (4) Lumbar stenosis SNOMED Code(s): 18638326 Code(s): M48.061 - SPINAL STENOSIS, LUMBAR REGION WITHOUT NEUROGENIC RAZIA Status: Chronic Current Visit: No Qualifiers: Neurogenic claudication status: without neurogenic claudication Qualified Code(s): M48.061 - Spinal stenosis, lumbar region without neurogenic claudication (5) Type 2 diabetes mellitus SNOMED Code(s): 51506073 Code(s): E11.9 - TYPE 2 DIABETES MELLITUS WITHOUT COMPLICATIONS Status: Chronic Current Visit: No Qualifiers: Diabetes mellitus senior care insulin use: without senior care use Diabetes mellitus complication status: without complication Qualified Code(s): E11.9 - Type 2 diabetes mellitus without complications - Problem List Review Problem List Initiated/Reviewed/Updated: Yes - My Orders Last 24 Hours: My Active Orders 09/23/17 10:56 Patient Status [ADT] Routine Intake and Output [RC] QSHIFT Notify Provider Vital Signs [RC] ASDIRECTED Oxygen Therapy [RC] PRN Up With Assistance [RC] ASDIRECTED VTE/DVT Education [RC] Per Unit Routine Vital Signs [RC] Q4H PT Evaluation and Treatment [CONS] Routine Docusate Sodium/Sennosides [Senna Plus] 1 tab PO BID PRN Ibuprofen [Motrin] 600 mg PO Q6H PRN Ondansetron [Zofran ODT] 4 mg PO Q6H PRN Polyethylene Glycol 3350 [MiraLAX] 17 gm PO DAILY PRN Trolamine Salicylate/Aloe Vera [Aspercreme 10%] 0 gm TOP Q1H PRN Sequential Compression Device [OM.PC] Per Unit Routine 09/23/17 14:00 Acetaminophen [Tylenol Extra Strength] 1,000 mg PO TID 09/23/17 21:00 Gabapentin [Neurontin] 300 mg PO BEDTIME Melatonin 9 mg PO BEDTIME Pantoprazole [ProTONIX] 40 mg PO BEDTIME Tamsulosin [Flomax] 0.4 mg PO BEDTIME 09/23/17 Lunch Consistent Carbohydrate Diet [DIET] 09/24/17 06:00 Levofloxacin [Levaquin] 250 mg PO Q24H 09/24/17 08:00 metFORMIN [Glucophage] 1,250 mg PO DAILY@0800 predniSONE 4 mg PO DAILY@0800 09/24/17 10:58 Convert IV to Saline Lock [OM.PC] Routine - Plan Plan:: ASSESSMENT AND PLAN - Acute cystitis with sepsis syndrome - sepsis has resolved. Culture growing a gram-negative tremayne but identification pending. -Continue levofloxacin -Saline lock IV -Follow-up culture results -Physical therapy Chronic right lower back pain - has not responded to epidural steroid injections , patient has significant difficulty daily and at night because of his pain. Pain seems a little better today. -Scheduled acetaminophen -Trial of gabapentin -Aspercreme as needed Type 2 diabetes mellitus, controlled - on oral medications at home. These will be continued. 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 -Melatonin at bedtime Maintenance issues - - DVT prophylaxis - mechanical - GI prophylaxis - not indicated - Nutrition - regular Disposition - anticipate discharge home with his after the hospital stay Roddy Juarez M.D.
[2017-09-24] MEDS ORDERED: 1: AA 5%/Calcium/D15W/Lytes 1,000 ML with MVI, Adult with Vitamin K 10 ML, Chromium/Copp IV SCH ×3 (15:30)
[2017-09-24] MEDS: Tamsulosin 0.4 MG Cap.ER PO SCH (20:21)
[2017-09-24] MEDS: Gabapentin 300 MG Cap PO SCH (20:21)
[2017-09-24] MEDS: Melatonin 3 MG Tab PO SCH (20:21)
[2017-09-24] MEDS: Pantoprazole 40 MG Tab.CR PO SCH (20:21)
[2017-09-25] MEDS: Ibuprofen 600 MG Tab PO PRN (04:08)
[2017-09-25] MEDS: Levofloxacin 250 MG Tab PO SCH (05:50)
[2017-09-25] MEDS: Acetaminophen 500 MG Tab PO SCH (09:07)
[2017-09-25] MEDS: metFORMIN 500 MG Tab PO SCH (09:07)
[2017-09-25] MEDS: predniSONE 1 MG Tab PO SCH (09:08)
--- NOTE | 2017-09-25 10:56 | PCM.DCSUM1 ---
Discharge Summary - Hospital Course Brief History: 86-year-old male with history of a 2 diabetes mellitus that is controlled, spinal stenosis and mild dementia who presented with fever and weakness. He was admitted for management of a urinary tract infection with sepsis. Diagnosis: Stroke: No - Discharge Data Discharge Date: 09/25/17 Discharge Disposition: Home, Self-Care 01 Condition: Good - Discharge Diagnosis/Problem(s) (1) Acute cystitis with hematuria SNOMED Code(s): 37917058 ICD Code: N30.01 - ACUTE CYSTITIS WITH HEMATURIA Status: Acute (2) Sepsis SNOMED Code(s): 30165437 ICD Code: A41.9 - SEPSIS, UNSPECIFIED ORGANISM Status: Acute Qualifiers: Sepsis type: sepsis due to unspecified organism Qualified Code(s): A41.9 - Sepsis, unspecified organism (3) Lumbar stenosis SNOMED Code(s): 62359182 ICD Code: M48.061 - SPINAL STENOSIS, LUMBAR REGION WITHOUT NEUROGENIC RAZIA Status: Chronic Qualifiers: Neurogenic claudication status: without neurogenic claudication Qualified Code(s): M48.061 - Spinal stenosis, lumbar region without neurogenic claudication (4) Dementia SNOMED Code(s): 48194559 ICD Code: F03.90 - UNSPECIFIED DEMENTIA WITHOUT BEHAVIORAL DISTURBANCE Status: Chronic Qualifiers: Dementia type: Alzheimer's disease Dementia behavioral disturbance: without behavioral disturbance (5) Type 2 diabetes mellitus SNOMED Code(s): 54186312 ICD Code: E11.9 - TYPE 2 DIABETES MELLITUS WITHOUT COMPLICATIONS Status: Chronic Qualifiers: Diabetes mellitus intermediate accountant insulin use: without care home use Diabetes mellitus complication status: without complication Qualified Code(s): E11.9 - Type 2 diabetes mellitus without complications - Patient Summary/Data Consults: Consultations 09/23/17 10:56 PT Evaluation and Treatment [CONS] Routine Please Evaluate and Treat. PT Reason for Consult: Ambulation This query below is only for informational purposes and is not editable. Hospital Course: Dann presented to the emergency room with rigors and weakness. Workup in the emergency room suggested acute cystitis with sepsis. He received IV fluids and was empirically started on levofloxacin. He was admitted to the hospital for further management. Overnight following admission he did have significant improvement. His fevers resolved. Strength and mental status were back to baseline by the morning after admission. The morning after admission his urine culture was growing a gram-negative tremayne and the levofloxacin was continued. The next morning, the morning of discharge, the patient feels well and has been up and about. He has not had any fevers. His urine culture grew out Klebsiella. Vital signs have been stable. Appetite has been good. I believe he is safe for outpatient management and oral antibiotics at this time. I suspect the urinary tract infection was a result of some chronic urinary retention with BPH. He will be discharged with 5 additional days of antibiotic therapy with cephalexin. Also noted during the hospital stay was some difficulty with increased lower back pain. He has known spinal stenosis and has been struggling with pain recently. He was agreeable to a trial of gabapentin which we initiated at bedtime. He has tolerated this medication well and has had an apparent improvement in his pain. He has had very little pain over the last 2 days. He will be discharged with a new prescription for this medication to use at bedtime. His diabetes has been well-controlled during the hospital stay. There were no behavior issues. - Patient Instructions Diet: Diabetic Diet Activity: As Tolerated Showering/Bathing: May Shower Notify Provider of: Fever, Increased Pain, Nausea and/or Vomiting Other/Special Instructions: 1. You were in the hospital for management of a urinary tract infection complicated by sepsis syndrome. The urine culture grew out a bacteria called Klebsiella. I recommend 5 additional days of antibiotic therapy with cephalexin (Keflex). You should take 500 mg twice daily with food. Your first dose is due on morning. 2. During the hospital stay we started a medication called gabapentin to reduce your back pain. You seem to be tolerating the medication well and it does seem to be helping your back. I have sent a prescription for this medication. You should take 300 mg at bedtime. This is a small dose and can be increased if needed down the road. You should talk to Dr. Garza if you think the medication needs to be increased in the future. 3. Continue your other home medications as previously prescribed. 4. Seek medical attention if you develop fever greater than 101, you have severe abdominal pain or persistent vomiting or diarrhea. - Discharge Plan Prescriptions/Med Rec: Cephalexin 500 mg PO BID #10 capsule Gabapentin [Neurontin] 300 mg PO BEDTIME #30 capsule Home Medications: Home Meds Ascorbic Acid 500 mg PO DAILY 01/22/13 [History] Metoprolol Tartrate [Lopressor] 50 mg PO DAILY 01/22/13 [History] Pravastatin Sodium 40 mg PO ASDIRECTED 01/22/13 [History] Vitamin B Complex [B Complex] 1 each PO DAILY 01/22/13 [History] Pantoprazole [ProTONIX] 40 mg PO BEDTIME 01/01/14 [History] predniSONE [Prednisone] 4 mg PO DAILY 01/22/14 [History] Tamsulosin [Flomax] 0.4 mg PO BEDTIME #90 cap.er 02/08/17 [Rx] Melatonin 10 mg PO BEDTIME 08/15/17 [History] Calcium Citrate/Vitamin D3 [Calcium Citrate - Vit D Tablet] 1 tab PO DAILY 09/23 [History] Fish Oil/[place]-3 Fatty Acids [Fish Oil 1,000 MG] 1,000 mg PO DAILY 09/23/17 [ History] Triamterene/Hydrochlorothiazid [Maxzide 75 mg-50 mg Tablet] 37.5 mg PO DAILY 05/12 [History] Zinc Sulfate 220 mg PO DAILY 09/23/17 [History] metFORMIN HCl [Metformin HCl] 1,250 mg PO DAILY 09/23/17 [History] Cephalexin 500 mg PO BID #10 capsule 09/25/17 [Rx] Gabapentin [Neurontin] 300 mg PO BEDTIME #30 capsule 09/25/17 [Rx] Patient Handouts: Gabapentin capsules or tablets, Urinary Tract Infection, Adult, [id number], Cephalexin tablets or capsules Referrals: Rudolph Garza MD [Physician] - - Discharge Summary/Plan Comment DC Time >30 min.: No - Patient Data Vitals - Most Recent: Last Vital Signs Temp 36.2 C 09/25/17 08:07 Pulse 57 L 09/25/17 08:07 Resp 16 09/25/17 08:07 BP 139/59 L 09/25/17 08:07 Pulse Ox 96 09/25/17 08:07 Weight - Most Recent: 65.862 kg I&O - Last 24 hours: Intake & Output 09/24/17 09/25/17 09/25/17 22:59 06:59 14:59 Intake Total 240 240 640 Output Total 700 450 Balance -460 -210 640 DELORIS Results - Last 24 hrs: Microbiology 09/23/17 06:40 Aerobic Blood Culture - Preliminary Blood - Arm, Right NO GROWTH AFTER 2 DAYS Anaerobic Blood Culture - Preliminary NO GROWTH AFTER 2 DAYS 09/23/17 06:30 Aerobic Blood Culture - Preliminary Blood - Arm, Right NO GROWTH AFTER 2 DAYS Anaerobic Blood Culture - Preliminary NO GROWTH AFTER 2 DAYS 09/23/17 06:16 Urine Culture - Final Urine, Clean Catch Klebsiella Pneumonia Ss Pneumo Med Orders - Current: Current Medications Acetaminophen (Tylenol Extra Strength) 1,000 mg PO TID [facility] Last Admin: 09/25/17 09:07 Dose: 1,000 mg Gabapentin (Neurontin) 300 mg PO BEDTIME [facility] Last Admin: 09/24/17 20:21 Dose: 300 mg Ibuprofen (Motrin) 600 mg PO Q6H PRN PRN Reason: Pain/Fever Last Admin: 09/25/17 04:08 Dose: 600 mg Levofloxacin (Levaquin) 250 mg PO Q24H [facility] Last Admin: 09/25/17 05:50 Dose: 250 mg Melatonin (Melatonin) 9 mg PO BEDTIME [facility] Last Admin: 09/24/17 20:21 Dose: 9 mg Metformin HCl (Glucophage) 1,250 mg PO DAILY@0800 [facility] Last Admin: 09/25/17 09:07 Dose: 1,250 mg Ondansetron HCl (Zofran Odt) 4 mg PO Q6H PRN PRN Reason: Nausea able to take PO Pantoprazole Sodium (Protonix) 40 mg PO BEDTIME [facility] Last Admin: 09/24/17 20:21 Dose: 40 mg Polyethylene Glycol (Miralax) 17 gm PO DAILY PRN PRN Reason: Constipation Prednisone (Prednisone) 4 mg PO DAILY@0800 [facility] Last Admin: 09/25/17 09:08 Dose: 4 mg Senna/Docusate Sodium (Senna Plus) 1 tab PO BID PRN PRN Reason: Constipation Tamsulosin HCl (Flomax) 0.4 mg PO BEDTIME [facility] Last Admin: 09/24/17 20:21 Dose: 0.4 mg Trolamine Salicylate (Aspercreme 10%) 0 gm TOP Q1H PRN PRN Reason: back pain Discontinued Medications Lactated Ringer's (Ringers, Lactated) 1,000 mls @ 999 mls/hr IV ASDIRECTED [facility] Last Infusion: 09/23/17 06:50 Dose: 200 mls/hr Levofloxacin/Dextrose 750 mg/ (Premix) 150 mls @ 100 mls/hr IV Q24H [facility] Last Admin: 09/23/17 06:49 Dose: 100 mls/hr Sodium Chloride (Normal Saline) 1,000 mls @ 100 mls/hr IV ASDIRECTED [facility] Last Admin: 09/23/17 21:50 Dose: 100 mls/hr Ibuprofen (Motrin) 600 mg PO ONETIME ONE Stop: 09/23/17 06:54 Last Admin: 09/23/17 06:59 Dose: 600 mg - Exam Quality Assessment: Denies: Supplemental Oxygen General: Reports: Alert, Cooperative, No Acute Distress Neck: Reports: Supple Lungs: Reports: Normal Respiratory Effort GI/Abdominal Exam: No Distention Extremities: No Pedal Edema Psy/Mental Status: Reports: Alert, Normal Affect
[2017-09-25 11:35] VITALS: BP 135/63
--- NOTE | 2017-09-26 10:06 | CR ---
Chest 1V Frontal INDICATION: Hypoxic COMPARISON: 01/15/2017 FINDINGS: AP portable chest. No acute interval change. No signs of pulmonary edema. No infiltrates or pleural effusion.
== END 2017-09-25 13:00 | disposition home or self-care (01) | DRG 872 ==
LOC: JP.ED 05:39 → JP.MS 09:47
PROVIDERS: ADMIT Internal Medicine; ATTEND Internal Medicine
DX: A41.9 Sepsis, unspecified organism (principal); N39.0 Urinary tract infection, site not specified; F03.90 Unspecified dementia, unspecified severity, without behavioral disturbance, psychotic disturbance, mood disturbance, and anxiety; N30.01 Acute cystitis with hematuria; E87.2 Acidosis; I10 Essential (primary) hypertension; K21.9 Gastro-esophageal reflux disease without esophagitis; G30.9 Alzheimer's disease, unspecified; F02.80 Dementia in other diseases classified elsewhere, unspecified severity, without behavioral disturbance, psychotic disturbance, mood disturbance, and anxiety; Z66 Do not resuscitate; B96.1 Klebsiella pneumoniae [K. pneumoniae] as the cause of diseases classified elsewhere; N40.1 Benign prostatic hyperplasia with lower urinary tract symptoms; R33.8 Other retention of urine; M35.3 Polymyalgia rheumatica; E11.9 Type 2 diabetes mellitus without complications; M48.061 Spinal stenosis, lumbar region without neurogenic claudication; G89.29 Other chronic pain; M54.5 Low back pain; Z79.84 Long term (current) use of oral hypoglycemic drugs; Z79.899 Other long term (current) drug therapy; Z79.52 Long term (current) use of systemic steroids; Z88.0 Allergy status to penicillin; Z88.7 Allergy status to serum and vaccine
CPT/HCPCS: 36415; 71045; 80053; 81001; 83605; 85025; 86140; 87040 ×2; 87086; 87088; 87186; 96361; 96365; 99285; A9270; J1956; J7120; 80048; 85027; 97161-GP; 97530-GP; J7030

== ENCOUNTER 2017-09-26 22:09 | Emergency (ER) | payer MEDICARE, BC ==
--- NOTE | 2017-09-26 23:40 | EDM.PDOC ---
ED HPI GENERAL MEDICAL PROBLEM - General Chief Complaint: Fever Stated Complaint: FEVER, SHAKING, UNSTABLE WALK, Time Seen by Provider: 09/26/17 23:25 Source of Information: Reports: Patient, Family, Old Records History Limitations: Reports: No Limitations - History of Present Illness INITIAL COMMENTS - FREE TEXT/NARRATIVE: 86 yo male was discharged from this facility yesterday after a 2 day admission for urosepsis due to Klebsiella. He went home on cephalexin 500 mg bid which he has been taking. He felt very good yesterday. Today he has gotten progressively more weak and early tonight spiked a fever and is urinating more often. He denies dysuria and SOB. 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 lower back Pain Score (Numeric/FACES): 5 - Related Data Allergies Allergy/AdvReac Type Severity Reaction Status Date / Time Penicillins Allergy Unknown Other Verified 09/26/17 23:15 amlodipine [From Norvasc] Allergy Cannot Verified 09/26/17 23:15 Remember pneumococcal 23-valent Allergy Headache Verified 09/26/17 23:15 polysacchari [From Pneumovax 23] sertraline [From Zoloft] Allergy Cannot Verified 09/26/17 23:15 Remember Home Meds: Home Meds Ascorbic Acid 500 mg PO DAILY 01/22/13 [History] Metoprolol Tartrate [Lopressor] 50 mg PO BID 01/22/13 [History] Pravastatin Sodium 40 mg PO ASDIRECTED 01/22/13 [History] Vitamin B Complex [B Complex] 1 each PO DAILY 01/22/13 [History] Pantoprazole [ProTONIX] 40 mg PO DAILY 01/01/14 [History] predniSONE [Prednisone] 4 mg PO DAILY 01/22/14 [History] Tamsulosin [Flomax] 0.4 mg PO BEDTIME #90 cap.er 02/08/17 [Rx] Melatonin 10 mg PO BEDTIME 08/15/17 [History] Calcium Citrate/Vitamin D3 [Calcium Citrate - Vit D Tablet] 1 tab PO DAILY 09/23 [History] Fish Oil/[place]-3 Fatty Acids [Fish Oil 1,000 MG] 1,000 mg PO DAILY 09/23/17 [ History] Triamterene/Hydrochlorothiazid [Maxzide 75 mg-50 mg Tablet] 37.5 mg PO DAILY 05/12 [History] Zinc Sulfate 220 mg PO DAILY 09/23/17 [History] metFORMIN HCl [Metformin HCl] 1,250 mg PO DAILY 09/23/17 [History] Cephalexin 500 mg PO BID #10 capsule 09/25/17 [Rx] Gabapentin [Neurontin] 300 mg PO BEDTIME #30 capsule 09/25/17 [Rx] Past Medical History HEENT History: Reports: Cataract, Hard of Hearing, Impaired Vision Cardiovascular History: Reports: Heart Murmur, Hypertension Gastrointestinal History: Reports: GERD Genitourinary History: Reports: Renal Calculus Musculoskeletal History: Reports: Back Pain, Chronic Other Musculoskeletal History: polymyalgia rheumatica. s/p L4-S1 Lumbar fusion 01/22/17 Neurological History: Reports: Concussion Other Neuro History: short term memory loss Psychiatric History: Reports: Dementia Endocrine/Metabolic History: Reports: Diabetes, Type II Oncologic (Cancer) History: Reports: Other (See Below) Other Oncologic History: face, hands, lips - Infectious Disease History Infectious Disease History: Reports: C-Difficile, Measles, Mumps, Scarlet Fever - Past Surgical History HEENT Surgical History: Reports: Adenoidectomy, Cataract Surgery, Tonsillectomy GI Surgical History: Reports: Appendectomy, Colonoscopy, Hernia Repair/Other Musculoskeletal Surgical History: Reports: None Social & Family History - Family History Family Medical History: Noncontributory - Tobacco Use Smoking Status *Q: Never Smoker - Caffeine Use Caffeine Use: Reports: Coffee Other Caffeine Use: drinks 1-2 cups/day of coffee. Caffeine Use Comment: a cup a day - Recreational Drug Use Recreational Drug Use: No ED ROS GENERAL - Review of Systems Review Of Systems: See Below Constitutional: Reports: Fever, Chills, Weakness HEENT: Reports: No Symptoms Respiratory: Reports: No Symptoms Cardiovascular: Reports: No Symptoms Endocrine: Reports: No Symptoms GI/Abdominal: Reports: No Symptoms : Reports: Frequency Musculoskeletal: Reports: No Symptoms Skin: Reports: No Symptoms Neurological: Reports: No Symptoms ED EXAM, SEPSIS - Physical Exam Exam: See Below Exam Limited By: No Limitations General Appearance: Alert, WD/WN, No Apparent Distress Eye Exam: Bilateral Eye: Normal Inspection Ears: Normal External Exam, Normal Canal, Hearing Grossly Normal Nose: Normal Inspection, Normal Mucosa, No Blood Throat/Mouth: Normal Inspection, Normal Lips, Normal Oropharynx, Normal Voice, No Airway Compromise Head: Atraumatic, Normocephalic Neck: Normal Inspection, Supple, Non-Tender Respiratory/Chest: No Respiratory Distress, Lungs Clear, Normal Breath Sounds, No Accessory Muscle Use Cardiovascular: Regular Rate, Rhythm, No Edema GI/Abdominal Exam: Normal Bowel Sounds, Soft, Non-Tender, No Distention Extremities: Normal Inspection, Normal Range of Motion, Non-Tender, Pedal Edema Neurological: Alert, Oriented, CN II-XII Intact, Normal Cognition, No Motor/ Sensory Deficits Psychiatric: Normal Affect, Normal Mood Skin: Warm, Dry, Intact, Normal Color, No Rash Lymphatic: Bilateral: No Adenopathy Course - Vital Signs Text/Narrative:: Feeling much better after treatment. Did well walking in the ER with a walker. Last Recorded V/S: Last Vital Signs Temp 38.2 C H 09/27/17 01:31 Pulse 79 09/27/17 01:31 Resp 20 09/27/17 01:31 BP 141/72 H 09/27/17 01:31 Pulse Ox 90 L 09/27/17 01:31 Orthostatic Blood Pressure [ 141/73 Standing] Orthostatic Blood Pressure [ 146/73 Sitting] Orthostatic Blood Pressure [ 139/67 Supine] - Orders/Labs/Meds Orders: Active Orders 24 hr Category Date Time Status Orthostatic Vital Signs [RC] ASDIRECTED Care 09/26/17 23:55 Active Chest 1V Frontal [CR] Stat Exams 09/27/17 00:25 Taken UA W/MICROSCOPIC [URIN] Stat Lab 09/27/17 02:26 Ordered Labs: Laboratory Tests 09/26/17 09/26/17 09/26/17 Range/Units 23:35 23:35 23:35 WBC 9.3 (4.5-11.0) K/uL RBC 3.80 L (4.30-5.90) M/uL Hgb 11.1 L (12.0-15.0) g/dL Hct 34.4 L (40.0-54.0) % MCV 91 (80-98) fL MCH 29 (27-31) pg MCHC 32 (32-36) % Plt Count 171 (150-400) K/uL Sodium 140 (140-148) mmol/L Potassium 3.7 (3.6-5.2) mmol/L Chloride 104 (100-108) mmol/L Carbon Dioxide 29 (21-32) mmol/L Anion Gap 7.2 (5.0-14.0) mmol/L BUN 20 H (7-18) mg/dL Creatinine 1.0 (0.8-1.3) mg/dL Est Cr Clr Drug Dosing 47.50 mL/min Estimated GFR (MDRD) > 60 (>60) Glucose 135 H (74-106) mg/dL Lactic Acid 2.0 (0.4-2.0) mmol/L Calcium 8.3 L (8.5-10.1) mg/dL Urine Color Urine Appearance Urine pH (4.5-8.0) Ur Specific [place] (1.008-1.030) Urine Protein (NEGATIVE) mg/dL Urine Glucose (UA) (NEGATIVE) mg/dL Urine Ketones (NEGATIVE) mg/dL Urine Occult Blood (NEGATIVE) Urine Nitrite (NEGAITVE) Urine Bilirubin (NEGATIVE) Urine Urobilinogen (NORMAL) mg/dL Ur Leukocyte Esterase (NEGATIVE) Urine RBC (0-5) Urine WBC (0-5) Ur Epithelial Cells Amorphous Sediment Urine Bacteria Urine Mucus 09/27/17 Range/Units 02:26 WBC (4.5-11.0) K/uL RBC (4.30-5.90) M/uL Hgb (12.0-15.0) g/dL Hct (40.0-54.0) % MCV (80-98) fL MCH (27-31) pg MCHC (32-36) % Plt Count (150-400) K/uL Sodium (140-148) mmol/L Potassium (3.6-5.2) mmol/L Chloride (100-108) mmol/L Carbon Dioxide (21-32) mmol/L Anion Gap (5.0-14.0) mmol/L BUN (7-18) mg/dL Creatinine (0.8-1.3) mg/dL Est Cr Clr Drug Dosing mL/min Estimated GFR (MDRD) (>60) Glucose (74-106) mg/dL Lactic Acid (0.4-2.0) mmol/L Calcium (8.5-10.1) mg/dL Urine Color Yellow Urine Appearance Clear Urine pH 5.0 (4.5-8.0) Ur Specific [place] 1.015 (1.008-1.030) Urine Protein Negative (NEGATIVE) mg/dL Urine Glucose (UA) Normal (NEGATIVE) mg/dL Urine Ketones Negative (NEGATIVE) mg/dL Urine Occult Blood Negative (NEGATIVE) Urine Nitrite Negative (NEGAITVE) Urine Bilirubin Negative (NEGATIVE) Urine Urobilinogen Normal (NORMAL) mg/dL Ur Leukocyte Esterase Negative (NEGATIVE) Urine RBC 0-5 (0-5) Urine WBC 0-5 (0-5) Ur Epithelial Cells Few Amorphous Sediment Not seen Urine Bacteria Few Urine Mucus Not seen Meds: Medications Discontinued Medications Generic Name Dose Route Start Last Admin Trade Name Freq PRN Reason Stop Dose Admin Acetaminophen 1,000 mg 09/27/17 00:57 09/27/17 01:18 Tylenol Extra Strength PO 09/27/17 00:58 1,000 mg ONETIME ONE Administration Lactated Ringer's 1,000 mls @ 1,000 mls/hr 09/27/17 00:37 09/27/17 00:57 Ringers, Lactated IV 09/27/17 01:36 1,000 mls/hr BOLUS ONE Administration Ceftriaxone Sodium 1 gm/ 50 mls @ 100 mls/hr 09/27/17 00:57 09/27/17 01:58 Sodium Chloride IV 09/27/17 01:26 100 mls/hr ONETIME ONE Administration - Radiology Interpretation Free Text/Narrative:: CXR-no acute changes Departure - Departure Time of Disposition: 03:18 Disposition: Home, Self-Care 01 Condition: Fair Clinical Impression: Fever Qualifiers: Fever type: unspecified Qualified Code(s): R50.9 - Fever, unspecified - Discharge Information Referrals: Rudolph Garza MD [Primary Care Provider] - Forms: ED Department Discharge Additional Instructions: Consider holding gapapentin. Increase cephalexin to 500 mg every 6 hrs, next dose tomorrow at bedtime. Recheck in the clinic tomorrow late afternoon or Saturday morning, call for an appt. Return here as needed. - My Orders Last 24 Hours: My Active Orders 09/26/17 23:55 Orthostatic Vital Signs [RC] ASDIRECTED 09/27/17 00:25 Chest 1V Frontal [CR] Stat 09/27/17 02:26 UA W/MICROSCOPIC [URIN] Stat - Assessment/Plan Last 24 Hours: My Active Orders 09/26/17 23:55 Orthostatic Vital Signs [RC] ASDIRECTED 09/27/17 00:25 Chest 1V Frontal [CR] Stat 09/27/17 02:26 UA W/MICROSCOPIC [URIN] Stat
[2017-09-27] MEDS ORDERED: Lactated Ringers 1,000 ML IV ONE (00:37)
[2017-09-27] MEDS ORDERED: Acetaminophen 500 MG Tab PO ONE (00:57)
[2017-09-27] MEDS ORDERED: cefTRIAXone 1 GM in Sodium Chloride 0.9% 50 ML IV ONE (00:57)
[2017-09-27 03:19] VITALS: BP 131/66
--- NOTE | 2017-09-27 09:01 | CR ---
Chest 1V Frontal INDICATION: fever/low sats COMPARISON: 09/23/2017 FINDINGS: AP portable chest. Cardiomegaly unchanged. No infiltrates or pleural effusions. No signs of pulmonary edema.
== END 2017-09-27 03:45 | disposition home or self-care (01) ==
LOC: JP.ED 22:09
DX: R50.9 Fever, unspecified (principal); I10 Essential (primary) hypertension; E11.9 Type 2 diabetes mellitus without complications; Z88.8 Allergy status to other drugs, medicaments and biological substances; Z79.899 Other long term (current) drug therapy
CPT/HCPCS: 36415; 51702; 71045; 80048; 81001; 83605; 85027; 96361; 96365; 99284; A9270; J0696; J7050; J7120